=== PATIENT | male | born 1980 | race Caucasian/White ===

== ENCOUNTER → 2021-11-07 11:11 | Outpatient (CLI) | payer OTHER, SELFPAY | PROVIDERS: Visit Provider Nurse Practitioner | DX: Z20.822 Contact with and (suspected) exposure to COVID-19 (principal) | CPT/HCPCS: C9803; U0003; U0005 ==

== ENCOUNTER → 2023-10-20 10:53 | Outpatient (CLI) | payer OTHER, SELFPAY | LOC: SL 10:54 | PROVIDERS: PCP Pediatrics; Visit Provider Nurse Practitioner Family | DX: G47.33 Obstructive sleep apnea (adult) (pediatric); G47.36 Sleep related hypoventilation in conditions classified elsewhere; R06.83 Snoring; R53.83 Other fatigue; E66.9 Obesity, unspecified; Z68.31 Body mass index [BMI] 31.0-31.9, adult | CPT/HCPCS: G0399 ==

== ENCOUNTER → 2025-07-25 06:41 | Outpatient (CLI) | payer OTHER, SELFPAY | LOC: SL 06:42 | PROVIDERS: PCP Nurse Practitioner Family; Visit Provider Nurse Practitioner Family | DX: R06.81 Apnea, not elsewhere classified (principal); R06.83 Snoring; R53.83 Other fatigue; E66.9 Obesity, unspecified | CPT/HCPCS: G0399 ==

== ENCOUNTER 2025-08-07 18:20 | Emergency (ER) | payer OTHER, SELFPAY ==
[2025-08-07] VITALS (10 sets, daily range): BP systolic 129–184; BP diastolic 87–108; PULSE 73–107; RESP 9–18; TEMP 36.9; O2SAT 96–100; BMI 28.1
--- NOTE | 2025-08-07 18:39 | PC.NURSE ---
FSBS 94
--- NOTE | 2025-08-07 18:51 | ECG_ITS ---
APPROVED REPORT Exam: Resting ECG HR:97 bpm ECG Measurements Heart Rate 97 AXES WV 157 P 63 QRSd 100 QRS 84 QT 356 T 23 QTc 411 Conclusion Normal sinus rhythm Normal axis Normal intervals No STEMI Isolated T wave inversion in lead III Electronically signed by : Perico Karimi, 08/08/2025 02:03:05
--- NOTE | 2025-08-07 18:52 | CT_ITS ---
PROCEDURE INFORMATION: Exam: CTA Neck With Contrast Exam date and time: 08/07/2025 7:37 PM Age: 45 years old Clinical indication: Dizziness and giddiness; Additional info: Dizziness, vocal weakness TECHNIQUE: Imaging protocol: Computed tomographic angiography of the neck with contrast. Exam focused on the cervical segments of the vasculature. 3D rendering (Not supervised by radiologist): MIP and/or 3D reconstructed images were created by the technologist. Radiation optimization: All CT scans at this facility use at least one of these dose optimization techniques: automated exposure control; mA and/or kV adjustment per patient size (includes targeted exams where dose is matched to clinical indication); or iterative reconstruction. Contrast material: ISOVUE; Contrast volume: 80 ml; Contrast route: INTRAVENOUS (IV); COMPARISON: CT HEAD/BRAIN WO CON 08/07/2025 7:35 PM FINDINGS: Right common carotid artery: No stenosis. No dissection or occlusion. Right internal carotid artery: No stenosis of the extracranial segment. No dissection or occlusion. Right external carotid artery: No occlusion or stenosis of the origin. Left common carotid artery: No stenosis. No dissection or occlusion. Left internal carotid artery: No stenosis of the extracranial segment. No dissection or occlusion. Left external carotid artery: No occlusion or stenosis of the origin. Right vertebral artery: No stenosis. No dissection or occlusion. Left vertebral artery: Left vertebral artery is dominant. Soft tissues: Normal. No significant soft tissue swelling. Bones/joints: No acute fracture. IMPRESSION: No stenosis or dissection. REFERENCES: NASCET CRITERIA. The degree of stenosis in the cervical segment of the internal carotid artery is based on NASCET criteria. Normal is no stenosis. Mild is less than 50% stenosis. Moderate is 50-69% stenosis. Severe is 70% to 99% stenosis. Total occlusion is no detectable patent lumen.
--- NOTE | 2025-08-07 18:52 | CT_ITS ---
PROCEDURE INFORMATION: Exam: CTA Chest With Contrast Exam date and time: 08/07/2025 7:40 PM Age: 45 years old Clinical indication: Other: Weakness; Additional info: Weakness, dyspnea on exertion TECHNIQUE: Imaging protocol: Computed tomographic angiography of the chest with contrast. Exam focused on the arteries. 3D rendering (Not supervised by radiologist): MIP and/or 3D reconstructed images were created by the technologist. Radiation optimization: All CT scans at this facility use at least one of these dose optimization techniques: automated exposure control; mA and/or kV adjustment per patient size (includes targeted exams where dose is matched to clinical indication); or iterative reconstruction. Contrast material: ISOVUE; Contrast volume: 70 ml; Contrast route: INTRAVENOUS (IV); COMPARISON: CT ANGIO NECK 08/07/2025 7:37 PM FINDINGS: Pulmonary arteries: No pulmonary arterial intraluminal filling defects identified. Aorta: Unremarkable. No aortic aneurysm. No aortic dissection. Lungs: Subtle perihilar ground-glass interstitial opacities. No consolidation. No masses. Pleural spaces: Unremarkable. No pneumothorax. No pleural effusion. Heart: Unremarkable. No cardiomegaly. No pericardial effusion. Lymph nodes: Unremarkable. No enlarged lymph nodes. Bones/joints: Unremarkable. No acute fracture. Soft tissues: Unremarkable. IMPRESSION: 1. No central or segmental pulmonary arterial embolism identified. 2. Low-grade pulmonary edema/CHF and/or pulmonary air trapping.
--- NOTE | 2025-08-07 18:52 | CT_ITS ---
PROCEDURE INFORMATION: Exam: CT Head Without Contrast Exam date and time: 08/07/2025 7:35 PM Age: 45 years old Clinical indication: Other: Vertigo; Additional info: Vertigo, vocal weakness TECHNIQUE: Imaging protocol: Computed tomography of the head without contrast. Radiation optimization: All CT scans at this facility use at least one of these dose optimization techniques: automated exposure control; mA and/or kV adjustment per patient size (includes targeted exams where dose is matched to clinical indication); or iterative reconstruction. COMPARISON: CT HEAD/BRAIN WO CON 08/07/2025 7:35 PM FINDINGS: Brain: Normal. No hemorrhage. Unremarkable white matter. No mass effect. Cerebral ventricles: No ventriculomegaly. Paranasal sinuses: Visualized sinuses are unremarkable. No fluid levels. Mastoid air cells: Visualized mastoid air cells are well aerated. Bones: Unremarkable. No acute fracture. Soft tissues: Unremarkable. IMPRESSION: Stable noncontrast CT brain. No acute intracranial abnormality.
--- NOTE | 2025-08-07 18:52 | CT_ITS ---
PROCEDURE INFORMATION: Exam: CTA Head With Contrast, Arteriography Exam date and time: 08/07/2025 7:37 PM Age: 45 years old Clinical indication: Vertigo; Additional info: Vertigo, vocal weakness TECHNIQUE: Imaging protocol: Computed tomographic angiography of the head with contrast. Exam focused on the arteries. 3D rendering (Not supervised by radiologist): MIP and/or 3D reconstructed images were created by the technologist. Radiation optimization: All CT scans at this facility use at least one of these dose optimization techniques: automated exposure control; mA and/or kV adjustment per patient size (includes targeted exams where dose is matched to clinical indication); or iterative reconstruction. Contrast material: ISOVUE; Contrast volume: 80 ml; Contrast route: INTRAVENOUS (IV); COMPARISON: CT HEAD/BRAIN WO CON 08/07/2025 7:35 PM FINDINGS: ANTERIOR CIRCULATION: Right internal carotid artery: Intracranial segment is patent with no significant stenosis. No aneurysm. Right middle cerebral artery: No occlusion or significant stenosis. No aneurysm. Right anterior cerebral artery: No occlusion or significant stenosis. No aneurysm. Left internal carotid artery: Intracranial segment is patent with no significant stenosis. No aneurysm. Left middle cerebral artery: No occlusion or significant stenosis. No aneurysm. Left anterior cerebral artery: No occlusion or significant stenosis. No aneurysm. POSTERIOR CIRCULATION: Right vertebral artery: No occlusion or significant stenosis. No aneurysm. Left vertebral artery: Left vertebral artery is dominant. Basilar artery: No occlusion or significant stenosis. No aneurysm. Right posterior cerebral artery: No occlusion or significant stenosis. No aneurysm. Left posterior cerebral artery: No occlusion or significant stenosis. No aneurysm. IMPRESSION: No hemodynamically significant stenosis or large vessel occlusion.
[2025-08-07 19:05] LABS: Hematocrit 44.6 % (42.0-52.0); Hemoglobin 15.7 g/dL (14.1-18.0); Immature Granulocytes % 0.3 %; Mean Corpuscular HGB Conc 35.2 g/dL (31.8-35.4); Mean Corpuscular Hemoglobin 29.3 pg (27.0-31.2); Mean Corpuscular Volume 83.2 fl (80-94); Nucleated Red Blood Cells % 0 %; Platelet Count 242 K/mm3 (142-424); Red Blood Count 5.36 M/mm3 (4.60-6.20); Red Cell Distribution Width-SD 37.6 fL; White Blood Count 7.8 K/mm3 (4.8-10.8)
[2025-08-07 19:12] LABS: Albumin Level 4.8 g/dl (3.5-5.0); Chloride 101 mmol/L (98-107); Potassium 3.5 mmoL/L (3.5-5.1); Sodium 140 mmol/L (136-145)
[2025-08-07] MEDS: diazePAM 10MG/2ML SYRINGE 2.5 MG IV (19:13)
[2025-08-07 19:14] LABS: Blood Urea Nitrogen 13 mg/dl (9-20); Creatinine Clearance Estimated 108 mL/min (50-200); Creatinine,Serum 1.00 mg/dl (0.66-1.25); Estimated Glomerular Filt Rate 80 ml/min (>60); GFR (African American) 97 ML/MIN (>60)
[2025-08-07] MEDS: LACTATED RINGERS 1000ML 1,000 ML 999 ML IV (19:14)
[2025-08-07 19:15] LABS: Alanine Aminotransferase 32 U/L (12-78); Albumin/Globulin Ratio 1.5 (1.1-1.8); Alkaline Phosphatase 61 U/L (38-126); Anion Gap 16.5 mEq/L (5-15); Aspartate Amino Transferase 37 U/L (17-59); Bilirubin,Total 0.8 mg/dl (0.2-1.3); Calcium 9.3 mg/dl (8.4-10.2); Carbon Dioxide 26 mmol/L (22.0-30.0); Globulin 3.3 g/dL (1.3-3.2); Glucose 98 mg/dl (74-100); Total Protein,Serum 8.1 g/dl (6.3-8.2)
[2025-08-07 19:29] LABS: Troponin I < 0.01 ng/ml (0.00-0.034)
[2025-08-07 19:33] LABS: Free T4 (Free Thyroxine) 1.32 ng/dl (0.78-2.19)
[2025-08-07] MEDS: 0.9 % SODIUM CHLORIDE 50 ML VIAL 100 ML IV (19:37)
[2025-08-07] MEDS: IOPAMIDOL-370 (76%);100ML BOTTLE 150 ML IV (19:37)
[2025-08-07] MEDS: SODIUM CHLORIDE 0.9% 10ML SYR (RAD ONLY) 10 ML IV (19:38)
[2025-08-07 19:46] LABS: Thyroid Stimulating Hormone 1.77 uIU/mL (0.465-4.68)
--- NOTE | 2025-08-07 21:23 | PC.NURSE ---
Spoke with [facility] about transferring. awaiting a call back at this time
--- NOTE | 2025-08-07 21:43 | PC.NURSE ---
Accepted to [facility]. Will call back with a bed.
[2025-08-07] MEDS: ASPIRIN 325MG TABLET 325 MG PO (21:47)
--- NOTE | 2025-08-07 21:49 | [facility].EDGENADL ---
Discharge Plan Disposition Patient Disposition: Xfer Other Condition: Good Prescriptions Prescriptions: No Action acetaminophen [Tylenol] 325 mg capsule 325 mg PO QID PRN ibuprofen 200 mg tablet 200 mg PO Q6H PRN fluticasone propionate 50 mcg/actuation spray,suspension 2 spray intranasal DAILY Rx Instructions: administer into each nostril All Day Allergy (cetirizine) 10 mg capsule 10 mg PO DAILY PRN Referrals Follow up/Referrals: Provider,Referral, MD [Primary Care Provider, Medical] - See instructions Clinical Impressions Clinical Impression: Dizziness, Ataxia Print Language Print Language: Khmer Discharge ED Provider: Perico Karimi General Adult HPI General Chief complaint: Neuro Symptoms/Deficit Stated complaint: high blood pressure,dizzy Time Seen by Provider: 08/07/25 18:43 Mode of Arrival: Ambulatory Source of Information: Patient Description of Symptoms (Recalled from ER Triage Doc. by RN): ronnell presents for cheif complaints of high heart rate and high blood pressure. patient stated it was 159/112 and HR 110 prior to arrival. ronnell stated he started feeling off and werd this morning. complains of left arm weakness as well, no numbess and tingling. patient stated the room was spinning as well, and hes been having alot of headaches recently. History of Present Illness HPI narrative: See MDM for full HPI Related Data Home Medications ?Medication ?Instructions ?Recorded ?Confirmed acetaminophen 325 mg capsule 325 mg PO QID PRN 09/23/23 06/11/25 (Tylenol) ibuprofen 200 mg tablet 200 mg PO Q6H PRN 09/23/23 06/11/25 cetirizine 10 mg capsule (All Day 10 mg PO DAILY PRN 06/15/24 06/11/25 Allergy (cetirizine)) fluticasone propionate 50 2 spray intranasal DAILY 06/15/24 06/11/25 mcg/actuation nasal spray,suspension Allergies Allergy/AdvReac Type Severity Reaction Status Date / Time No Known Allergies Allergy Verified 06/14/24 17:18 [facility] Disclaimer: The information contained in this section may have been updated after the patient was seen, as this information can be updated by other users. Medical History (Updated 08/07/25 @ 21:55 by Perico Karimi DO) Intentional weight loss History of reverse total replacement of both shoulders Surgical History History of appendectomy Family History Other Coronary artery disease Hypertension RLS (restless legs syndrome) Social History Smoking Status: Never smoker alcohol intake: current alcohol intake frequency: a few times a week substance use type: denies use current occupational status: employed Travel in the last 8 weeks?: None household members: family housing: house marital status: Have you lived/traveled outside [place] in past 30 days?: No Contact w/someone who lives/traveled outside US past 30 days?: No Exposure to someone with infectious disease in past 14 days?: No Do you have a fever (greater than 100.4 F or 38 C)?: No Have you tested positive for COVID-19?: No Exposed to someone with COVID-19 in past 14 days?: No Do you have a sore throat?: No Do you have a cough?: No Do you have any weakness?: No Do you have any diarrhea?: No Are you experiencing any unusual bleeding?: No Do you have any muscle aches/pain?: No Do you have any abdominal pain?: No Are you experiencing loss of taste or smell?: No Other Medical History Have you received the Pneumonia Vaccine: No ROS Obtained: Yes Systems reviewed as appropriate & no additional complaints except as documented Physical Exam General General appearance: other (See MDM) Respiratory Respiratory exam: Present other (See MDM) Cardiovascular Cardiovascular exam: Present other (See MDM) Neurological Exam Neurological exam: Present other (See MDM) Medical Decision Making Medical Records Medical records reviewed: Yes I reviewed the patient's medical records. Screening: Per USPSTF and CDC recommendations, given the prevalence of disease in our region, it is our hospital?s policy to screen for HIV and viral Hepatitis for all patients aged 18 and over and those with ongoing risk factors. Prabhu Inquiry Pt receiving controlled substance: No Prabhu was queried for this patient: No Vital Signs: 08/07/25 18:27 08/07/25 18:43 08/07/25 19:00 Temperature 98.5 F Temperature Source Oral Pulse Rate 107 H 95 H Pulse Rate [Right Radial] 104 H Respiratory Rate 18 12 13 Blood Pressure 170/105 H 184/108 H Blood Pressure [Right Arm] 174/96 H Blood Pressure Mean [Right Arm] 122 Blood Pressure Source [Right Arm] Automatic Cuff Blood Pressure Position [Right Arm] Sitting 02 Sat by Pulse Oximetry 96 100 100 Oxygen Delivery Method Room Air Room Air 08/07/25 19:45 08/07/25 19:55 08/07/25 20:00 Temperature Temperature Source Pulse Rate 92 H 84 84 Pulse Rate [Right Radial] Respiratory Rate 9 L 11 L 16 Blood Pressure 133/91 H 139/87 Blood Pressure [Right Arm] Blood Pressure Mean [Right Arm] Blood Pressure Source [Right Arm] Blood Pressure Position [Right Arm] 02 Sat by Pulse Oximetry 98 100 Oxygen Delivery Method 08/07/25 20:30 08/07/25 21:30 Temperature Temperature Source Pulse Rate 94 H 94 H Pulse Rate [Right Radial] Respiratory Rate 10 L 10 L Blood Pressure 145/98 H 130/97 H Blood Pressure [Right Arm] Blood Pressure Mean [Right Arm] Blood Pressure Source [Right Arm] Blood Pressure Position [Right Arm] 02 Sat by Pulse Oximetry Oxygen Delivery Method Lab Data Lab Results 08/07/25 18:43: WBC 7.8, RBC 5.36, Hgb 15.7, Hct 44.6, MCV 83.2, MCH 29.3, MCHC 35.2, RDW 12.5, Plt Count 242, MPV 10.4, Neut % (Auto) 58.2, Lymph % (Auto) 30.6, Johnson % (Auto) 9.0, Eos % (Auto) 1.3, Baso % (Auto) 0.6, Neut # (Auto) 4.6, Lymph # (Auto) 2.4, Johnson # (Auto) 0.7, Eos # (Auto) 0.1, Baso # (Auto) 0.1, Sodium 140, Potassium 3.5, Chloride 101, Carbon Dioxide 26, Anion Gap 16.5 H, BUN 13, Creatinine 1.00, Estimated Creat Clear 108, Estimated GFR 80, Est GFR ( Amer) 97, Glucose 98, Calcium 9.3, Total Bilirubin 0.8, AST 37, ALT 32, Alkaline Phosphatase 61, Troponin I < 0.01, Total Protein 8.1, Albumin 4.8, Globulin 3.3 H, Albumin/Globulin Ratio 1.5, TSH 1.77, Free T4 1.32 08/07/25 18:43 08/07/25 18:43 Orders (Tests/Meds): ED MEDICATIONS Generic Name Dose Route Start Last Admin Trade Name Freq PRN Reason Stop Dose Admin Sodium Chloride 10 ml 08/07/25 19:35 08/07/25 19:38 Sodium Chloride 0.9% 10ml Syr (Rad Only) IV 09/06/25 19:34 10 ml NEEDED PRN Administration Maintain IV Site Discontinued Medications Generic Name Dose Route Start Last Admin Trade Name Freq PRN Reason Stop Dose Admin Aspirin 325 mg 08/07/25 21:41 08/07/25 21:47 Aspirin 325mg Tablet PO 08/07/25 21:42 325 mg ONCE ONE Administration Diazepam 2.5 mg 08/07/25 18:56 08/07/25 19:13 Diazepam 10mg/2ml Syringe IV 08/07/25 18:57 2.5 mg ONCE ONE Administration Lactated Ringer's 1,000 mls @ 999 mls/hr 08/07/25 18:59 08/07/25 21:22 Lactated Ringer's 1000 Ml Bag IV 08/07/25 19:59 Infused .Q1H1M ONE Infusion Iopamidol 150 ml 08/07/25 19:35 08/07/25 19:37 Iopamidol-370 (76%);100ml Bottle IV 08/07/25 19:36 150 ml ONCE ONE Administration Sodium Chloride 100 ml 08/07/25 19:35 08/07/25 19:37 0.9 % Sodium Chloride 50 Ml Vial IV 08/07/25 19:36 100 ml ONCE ONE Administration ORDERS Category Date Time Status CT angio chest PE protocol Stat Cat Scan 08/07/25 18:[address] angio head Stat Cat Scan 08/07/25 18:[address] angio neck Stat Cat Scan 08/07/25 18:[address] head/brain wo con Stat Cat Scan 08/07/25 18:52 Completed CBC w/Auto Diff [Complete Blood Count Auto Diff] Stat Lab 08/07/25 18:43 Completed CMP [Comprehensive Metabolic Panel] Stat Lab 08/07/25 18:43 Completed Free T4 (Free Thyroxine) Stat Lab 08/07/25 18:43 Completed TSH [Thyroid Stimulating Hormone] Stat Lab 08/07/25 18:43 Completed Troponin I Q3H Lab 08/07/25 22:00 Ordered Troponin I Q3H Lab 08/08/25 01:00 Ordered Troponin I Stat Lab 08/07/25 18:43 Completed Medical Decision Narrative: This is a 45-year-old male patient, with no past medical history noted medications, who is presenting to the emergency department today for evaluation of dizziness. The patient states that last night his dizziness began and he describes this as a sensation of floating on a boat and being unsteady on his feet. He also states that when he gets up to walk around he has additional vertigo with a sensation of spinning in the room. He states that since the onset of his symptoms he has a subjective sense of weakness in the left lower extremity. There was 1. In the past where he was admitted to an outside hospital on a stroke unit for foot drop that spontaneously resolved. He is not on any anticoagulant or antiplatelet therapies and does not take a daily baby aspirin. On arrival to the hospital the patient was unable to ambulate into the department and had to be wheeled in in a wheelchair. On my evaluation he is appropriately alert and oriented with a GCS of 15. Heart lungs clear to auscultation bilaterally. He has no abdominal pain or tenderness. He has 5 out of 5 strength in his bilateral upper and lower extremities, normal finger-nose testing, normal [id number] testing. Cranial nerves II through XII are intact. He has no nystagmus on exam so he is not a candidate for the hints examination. Given these findings his differential diagnosis includes large vascular occlusion, ischemic stroke, central vertigo, posterior circulation stroke, electrolyte derangement, intracranial hemorrhage, BPPV, lab otitis, vestibular neuritis, among others Workup was initiated with hematologic labs as as well as CTAs of the head and neck, CT head without contrast, and a CT PE study. Labs were personally interpreted by me and demonstrate no leukocytosis or actionable anemia. No significant electrolyte arrangements or acute kidney injury. Troponin is less than 0.01. CT scans of the head were personally interpreted by me and demonstrate no large intracranial hemorrhages. Official radiology read is in agreement and states that there is no acute abnormality. Additionally, they note no abnormality on CTA of the head and neck. CT PE study shows possible edema in the airway with no overt pulmonary embolism. We have treated the patient here in the emergency department 2.5 mg of Valium. Patient states that this has helped his sensation of dizziness and vertigo but his symptoms are still persisting. I have attempted to ambulate the patient and he is able to get out of the bed but he is unable to ambulate without holding onto the wall. His gait is somewhat wide-based and seems to be consistent with ataxia. he states that his symptoms of dizziness are still present at rest. Given this I do have concerns that he could be experiencing a posterior circulation stroke. Therefore I had an interactive discussion with the stroke navigator at [facility] in [place] who recommended that we treat the patient with 3 and a 25 mg of aspirin and transfer him for higher level of care for further stroke workup. Dr. Adams will be the accepting physician. Patient was transferred in stable condition. Critical Care Critical Care Time Critical Care Time: No
[2025-08-08] VITALS (11 sets, daily range): BP systolic 100–137; BP diastolic 65–94; PULSE 57–81; RESP 9–20; TEMP 36.7; O2SAT 94–99
--- NOTE | 2025-08-08 03:23 | PC.NURSE ---
Called [facility] to give them a update on transfer.
== END 2025-08-08 05:37 | disposition other institution (70) ==
PROVIDERS: Emergency Provider Student in an Organized Health Care Education/Training Program
DX: R27.0 Ataxia, unspecified (principal); R03.0 Elevated blood-pressure reading, without diagnosis of hypertension
CPT/HCPCS: 70450; 70496; 70498; 71275; 80053; 84439; 84443; 84484; 85025; 93005; 96361; 96374; 99285; J3360; J7120; Q9967

== ENCOUNTER 2025-08-10 09:41 | Emergency (ER) | payer OTHER, SELFPAY ==
--- OUTSIDE RECORDS SUMMARY | 2025-08-08 06:36 | XMS_ITS | Encounter Summary ---
Author Organization [facility] Address [address] [place] [id number] Care Team Providers Care Sanitary Aide Name Role Phone Unavailable Primary Care Provider Unavailabl e Reason for Referral * Physical Therapy (Routine) - Pending Review Specialty Diagnoses / Procedures Referred By Sadia schultz Referred To Contact Physical Therapy Diagnoses Benign paroxysmal positional vertigo due to bilateral vestibular disorder Procedures LA OFFICE/OUTPATIENT NEW MODERATE MDM 45 MINUTES Jackie Ndiaye MD [address] [place], [place] [address] [place] [address] Phone: tel: fax: Referral ID Status Reason Start Date Expiration Date Visits Requested Visits Authorized [id number] Pending Review Specialty Services Required 11/08/2026 1 1 Reason for Visit * Auth/Cert Specialty Diagnoses / Procedures Referred By Sadia schultz Referred To Contact Diagnoses Cerebrovascular Accident ATAXIA Referral ID Status Reason Start Date Expiration Date Visits Re quested Visits Authorized [id number] 1 1 Encounter Details Date Type Department Care Team (Late st Contact Info) Description 08/08/2025 6:36 AM EDT - 08/09/2025 3:22 PM EDT Hospital Encounter [address] [place] [id number] Chip Adams MD [address] [facility] 4Th [place] [address] Nicki Kelly DO [address] [place] [id number] Jackie Ndiaye MD [address] [facility] [address] [place] [address] Benign paroxysmal positional vertigo due to bilateral vestibular disorder (Primary Dx) Discharge Disposition: Home or Self Care Social History Tobacco Use Types Packs/Day Years Used Date Smoking Tobacco: Never Smokeless Tobacco: Never Tobacco Cessation:Counseling Given: No Alcohol Use Standard Drinks/Week Comments Yes 4 (1 standard drink = 0.6 oz pur e alcohol) AUDIT-C Answer Date Recorded Q1: How often do you have a drink containing alc ohol? 2-3 times a week 08/08/2025 Q2: How many drinks containi ng alcohol do you have on a typical day when you are drinking? 1 or 2 08/08/2025 Q3: How often do you have si x or more drinks on one occasion? Never 08/08/2025 Overall Financial Resource Strain (CARDIA) Answe r Date Recorded How hard is it for you to pa y for the very basics like food, housing, medical care, and heating? Not very hard 08/08/2025 [facility] Occupat ional [facility] - Occupational Stress Questionnaire Answer Date Recorded Do you feel stress - tense, restless, nervous, or anxious, or unable to sleep at night because your mind is troubled all the time - these days? Not at all 08/08/2025 Exercise Vital Sign Answer Date Recorde d On average, how many days pe r week do you engage in moderate to strenuous exercise (like a brisk walk)? 0 days 08/08/2025 On average, how many minutes do you engage in exercise at this level? 0 min 08/08/2025 Hunger Vital Sign Answer Date Recorded Within the past 12 months, y ou worried that your food would run out before you got the money to buy more. Never true 08/08/20 25 Within the past 12 months, t he food you bought just didn't last and you didn't have money to get more. Never true 08/08/2025 PRAPARE - Transportation Answer Date Re corded In the past 12 months, has l ack of transportation kept you from medical appointments or from getting medications? No 07/25 In the past 12 months, has l ack of transportation kept you from meetings, work, or from getting things needed for daily living? No 08/08/2025 [facility] Utilities Answer Date Recorded In the past 12 months has th e electric, gas, oil, or water company threatened to shut off services in your home? No 08/08/2025 Abuse Screen Answer Date Recorded Feels Unsafe at Home or Work/School no 08/08/2025 Feels Threatened by Someone no 07/25 Does Anyone Try to Keep You From Having Contact with Others or Doing Things Outside Your Home? no 08/08/2025 Physical Signs of Abuse Present no 08/08/2025 Housing Stability Answer Date Recorded Current Living Arrangements home 07/25 Potentially Unsafe Housing Conditions none 08/08/2025 Family and Community Support Answer Haresh e Recorded If for any reason you need h elp with day-to-day activities such as bathing, preparing meals, shopping, managing finances, etc., do you get the help you need? I get all the help I need 08/08/2025 How often do you feel lonely or isolated from those around you? Never 08/08/2025 Employment Answer Date Recorded Do you want help finding or keeping work or a job? I do not need or want help 08/08/2025 Disabilities Answer Date Recorded Difficulty Concentrating, Remembering or Making Decisions no 08/08/2025 Difficulty Managing Errands Independently no 08/08/2025 Education Answer Date Recorded Do you want help with school or training? For example, starting or completing job training or getting a high school diploma, GED or equivalent No 08/08/2025 Preferred Language [place] 08/08/2025 PHQ-2 Answer Date Recorded Patient Health Questionnaire-2 Score 0 08/08/2025 Sex and Gender Information Value Date Recorded Sex Assigned at Not on file Legal Sex Male 10:01 PM EDT Gender Identity Not on file Sexual Orientation Not on file documented as of this encounter Last Filed Vital Signs Vital Sign Reading Time Taken Comments Blood Pressure 145/99 08/09/2025 1:19 PM EDT Pulse 69 08/09/2025 10:11 AM EDT Temperature 36.7 C (98.1 F) 08/09/2025 10:11 AM EDT Respiratory Rate 18 08/09/2025 10:11 AM EDT Oxygen Saturation 96% 08/09/2025 10:11 AM EDT Inhaled Oxygen Concentration - - Weight 82.1 kg (181 lb) 08/09/2025 1:19 PM EDT Height - - Body Mass Index - - documented in this encounter Functional Status * Question Answer Date of Assessment Author 1. Wish to be (Past 1 Month) No 08/08/2025 8:34 AM EDT Florentino Martinez RN 2. Non-Specific Active Suicidal Thoughts (Past 1 Month) No 08/08/2025 8:34 AM EDT Florentino Martinez RN * Calculated C-SSRS Risk Score (Lifetime/Recent) Answer Date of Assessment Author No Risk Indicated 08/08/2025 8:34 AM EDT Mercedez Roland RN * [place] Suicide Severity Rating Scale (Screener/Recent Self-Report) Question Answer Date of Assessment Author 6. Suicidal Behavior (Lifetime) No 08/08/2025 8:34 AM EDT Florentino Martinez RN * Question Answer Date of Assessment Author Little interest or pleasure in doing things Not at all 08/08/2025 8:04 AM EDT [place] RN Feeling down, depressed, or hopeless Not at all 07/25 8:04 AM EDT [place] RN Patient Health Questionnaire-2 Score 0 07/25 8:04 AM EDT [place] RN documented as of this encounter Discharge Summaries * Susan Weiss RN - 08/09/2025 2:53 PM EDT Images from the original note were not included. Darci Campos (45 y.o. Male) Pt will call to arrange his first visit. Date of 1980 Social Security Number [id number] Address [address] [place] [address] Evangelical None Marital Status Admission Date 08/08/2025 Admission Type Urgent Admitting Provider Attending Provider Jackie Ndiaye MD Department, Room/Bed [facility] 3H, S383/1 Discharge Date Discharge Disposition Home or Self Care Discharge Destination Attending Provider: Jackie Ndiaye MD Allergies: No Known Allergies Isolation: None Infection: None Code Status: CPR Ht: -- Wt: 82.1 kg (181 lb) Admission Cmt: None Principal Problem: BPPV (benign paroxysmal positional vertigo) [H81.10] Active Insurance as of 08/08/2025 Primary Coverage Payor Plan Insurance Group Employer/Plan Group 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.) Home Phone Work Phone Mobile Phone Natalie Campos (Spouse) [phone] -- [phone] [facility] [address] [id number] Date: Aug 09, 2025 Ambulatory Referral to Physical Therapy for Evaluation & Treatment Patient: Darci Campos [address] [place] [id number] : 1980 SSN: [id number] Sex: M 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 ID Primary: [facility] [id number] Referring Provider Information: JACKIE NDIAYE Referral Information: # Visits: 1 Referral Type: Physical Therapy [AE1] Urgency: Routine Referral Reason: Specialty Services Required Start Date: Aug 09, 2025 End Date: To be determined by Insurer Diagnosis: Benign paroxysmal positional vertigo due to bilateral vestibular disorder (H81.13) Refer to Dept: Refer to Provider: Refer to Provider Phone: Refer to Facility: Specialty needed: Evaluate and treat Specialty needed: Vestibular Follow-up needed: Yes This document serves as a request of services and does not constitute Insurance authorization or approval of services. To determine eligibility, please contact the members Insurance carrier to verifyand review coverage. If you have medical questions regarding this request for services. Please contact [address] at [phone] during normal business hours. Verbal Order Mode: Verbal with readback Authorizing Provider: Jackie Ndiaye MD Authorizing Provider's Order Entered By: Susan Weiss RN 08/09/2025 2:50 PM Electronically signed by: Insurance Information [facility] Phone: -- Subscriber: Darci Campos Subscriber#: [id number] Group#: [id number] Precert#: -- Authorization#: -- Effective Date: -- History & Physical Jackie Ndiaye MD at 08/08/25 07 [facility] Medicine Services HISTORY AND PHYSICAL Patient Name: Darci Campos : 1980 Primary Care Physician: No primary care provider on file. Date of admission: 08/08/2025 Subjective Subjective Chief Complaint: Dizziness, difficulty walking HPI: Darci Campos is a 45 y.o. male with no known past medical history, who presented to [facility] for acute onset dizziness that began on 08/06 that has been persistent. He feels like he is on a boat, but when standing the room spins. Due to severity of symptoms, patient was extremelyataxic/had difficulty walking. Had 3 headaches in the past week and some neck discomfort. Denied fever, visual changes, chest pain, GI or symptoms. Patient reports significant chronic history of intermittent vertigo that usually lasts only a few seconds to less than a minute. At OSH, CTA head/neck read as wnl. Transferred here for further evaluation. Review of Systems As above Personal History Past Medical History: Diagnosis Date Sleep apnea Past Surgical History: Procedure Laterality Date APPENDECTOMY SHOULDER ARTHROSCOPY Family History: family history includes Heart disease in his father; Hypertension in his father; Leukemia in his mother. Social History: reports that he has never smoked. He has never used smokeless tobacco. He reports current alcohol use of about 4.0 standard drinks of alcohol per week. He reports that he does not usedrugs. Social History Social History Narrative Not on file Medications: cetirizine Allergies No Known Allergies Objective Objective Vital Signs: Temp: [97.9 ??F (36.6 ??C)] 97.9 ??F (36.6 ??C) Heart Rate: [80] 80 Resp: [18] 18 BP: (133)/(96) 133/96 Physical Exam Constitutional: No acute distress, awake, alert HENT: NCAT, mucous membranes moist Respiratory: Clear to auscultation bilaterally, respiratory effort normal Cardiovascular: RRR Gastrointestinal: Positive bowel sounds, soft, nontender, nondistended Musculoskeletal: No bilateral ankle edema Psychiatric: Appropriate affect, cooperative Neurologic: Alert, oriented, symmetric facies, ORO, PERRL, ORO, strength equal, speech clear Skin: No rashes Result Review: I have personally reviewed the results from the time of this admission to 08/08/2025 12:30 EDT and agree with these findings: [] Laboratory list / accordion [] Microbiology [] Radiology [] EKG/Telemetry [] Cardiology/Vascular [] Pathology [] Old records [] Other: Most notable findings include: LAB RESULTS: Lab 08/08/25 0736 WBC 5.70 HEMOGLOBIN 15.1 HEMATOCRIT 45.6 PLATELETS 220 NEUTROS ABS 3.26 IMMATURE GRANS (ABS) 0.01 LYMPHS ABS 1.72 MONOS ABS 0.56 EOS ABS 0.11 MCV 87.0 Lab 08/08/25 0736 SODIUM 141 POTASSIUM 4.4 CHLORIDE 104 CO2 27.2 ANION GAP 9.8 BUN 10.4 CREATININE 0.98 EGFR 95.7 GLUCOSE 93 CALCIUM 9.3 HEMOGLOBIN A1C 5.53 TSH 1.880 Lab 08/08/25 0736 TOTAL PROTEIN 6.9 ALBUMIN 4.3 GLOBULIN 2.6 ALT (SGPT) 26 AST (SGOT) 24 BILIRUBIN 0.8 ALK PHOS 47 Lab 08/08/25 0736 CHOLESTEROL 184 LDL CHOL 126* HDL CHOL 42 TRIGLYCERIDES 87 Brief Urine Lab Results None Microbiology Results (last 10 days) No results found for the last [address] Outside Head Result Date: 08/08/2025 This procedure was auto-finalized with no dictation required. CT Outside Head Result Date: 08/08/2025 This procedure was auto-finalized with no dictation required. CT Outside Neck Result Date: 08/08/2025 This procedure was auto-finalized with no dictation required. CT Outside Chest Result Date: 08/08/2025 This procedure was auto-finalized with no dictation required. Assessment & Plan Assessment & Plan Dizziness 45-year-old male with no significant past medical history, who presented to [facility] on 08/07 with acute onset dizziness that began on 08/06 that has persisted. CTA head/neck and CT head were read as unremarkable. He was transferred here for stroke neurology evaluation. Persistent dizziness Headache -CVA versus BPPV versus complex migraine -Stroke neurology consulted -MRI brain pending -TTE pending -Continue aspirin, statin -Migraine cocktail -PT/OT/speech -Neurochecks per protocol -If MRI negative, then PT for Jordan maneuver EYAL-doesn't use his CPAP DVT prophylaxis: SCDs for now while awaiting MRI brain CODE STATUS: FULL CODE Code Status (Patient has no pulse and is not breathing): CPR (Attempt to Resuscitate) Medical Interventions (Patient has pulse or is breathing): Full Support Level Of Support Discussed With: Patient Expected Discharge Expected discharge date/ time has not been documented. This note has been completed as part of a split-shared workflow. Signature: Electronically signed by Jackie Ndiaye MD, 08/08/25, 7:28 AM EDT 1233 @[email or web address]@ Discharge Summary Jackie Ndiaye MD at 08/09/25 0911 [facility] Medicine Services DISCHARGE SUMMARY Patient Name: Darci Campos : 1980 Date of Admission: 08/08/2025 6:36 AM Date of Discharge: 08/09/2025 Primary Care Physician: No primary care provider on file. Consults Date and Time Order Name Status Description 08/08/2025 6:42 AM Inpatient Neurology Consult Stroke Completed Hospital Course Presenting Problem: Active Hospital Problems Diagnosis POA BPPV (benign paroxysmal positional vertigo) [H81.10] Yes Hyperlipidemia [E78.5] Yes Resolved Hospital Problems No resolved problems to display. Hospital Course: Darci Campos is a 45 y.o. male with no significant past medical history, who presented to [facility] on 08/07 with acute onset dizziness that began on 08/06 that has persisted. CTA head/neck and CT head were read as unremarkable. He was transferred here for stroke neurology evaluation. MRI brain negative for CVA. ECHO prelim okay and stroke neuro ACTUARIAL TECHNICIAN is okay w DC home w prelim only read. BPPV Headache, resolved -BPPV versus complex migraine; no evidence of nystagmus on examination -Stroke neurology consulted -Status post migraine cocktail -PT/OT/speech evaluated and rec home -PT for Jordan maneuver -PRN meclizine on DC, discussed w pt -Encouraged pt to follow-up w ENT as scheduled on Wednesday -Symptoms dramatically improved prior to DC and pt able to walk in the hallway w/o difficulty -Lower suspicion for vestibular neuritis, but would remain supportive care Chronic bilateral tinnitus -Pt reported significant long-standing hx of tinnitus; discussed w pt and rec follow-up w PCP for hearing testing and if PCP doesn't do full hearing testing, then to obtain audiology referral HLD--Continue statin on DC per neuro given LDL 126 and ascvd risk of 3.4-5.9%; discussed risks of muscle aches/side effects w pt EYAL-doesn't use his CPAP Discharge Follow Up Recommendations for outpatient labs/diagnostics: Follow-up with PCP in 5-7 days regarding this hospitalization Follow-up with ENT as scheduled on Wednesday Day of Discharge HPI: Patient reports feeling significantly better. No chest pain or shortness of breath. Dizziness has essentially resolved. No headache. Able to walk now. Discussed with him follow-up recommendations. Pthas his sister on facetime in the room and pt okay w her being updated. Review of Systems As above Vital Signs: Temp: [97.7 ??F (36.5 ??C)-98.1 ??F (36.7 ??C)] 98.1 ??F (36.7 ??C) Heart Rate: [57-82] 69 Resp: [18] 18 BP: (114-145)/(71-99) 145/99 Physical Exam: Constitutional: No acute distress, awake, alert HENT: NCAT, mucous membranes moist Respiratory: Clear to auscultation bilaterally, respiratory effort normal Cardiovascular: RRR Gastrointestinal: Positive bowel sounds, soft, nontender, nondistended Musculoskeletal: No bilateral ankle edema Psychiatric: Appropriate affect, cooperative Neurologic: Alert, oriented, symmetric facies, ORO, PERRL, ORO, strength equal, speech clear Skin: No rashes on exposed skin Pertinent and/or Most Recent Results LAB RESULTS: Lab 08/08/25 0736 WBC 5.70 HEMOGLOBIN 15.1 HEMATOCRIT 45.6 PLATELETS 220 NEUTROS ABS 3.26 IMMATURE GRANS (ABS) 0.01 LYMPHS ABS 1.72 MONOS ABS 0.56 EOS ABS 0.11 MCV 87.0 Lab 08/08/25 0736 SODIUM 141 POTASSIUM 4.4 CHLORIDE 104 CO2 27.2 ANION GAP 9.8 BUN 10.4 CREATININE 0.98 EGFR 95.7 GLUCOSE 93 CALCIUM 9.3 HEMOGLOBIN A1C 5.53 TSH 1.880 Lab 08/08/25 0736 TOTAL PROTEIN 6.9 ALBUMIN 4.3 GLOBULIN 2.6 ALT (SGPT) 26 AST (SGOT) 24 BILIRUBIN 0.8 ALK PHOS 47 Lab 08/08/25 0736 CHOLESTEROL 184 LDL CHOL 126* HDL CHOL 42 TRIGLYCERIDES 87 Brief Urine Lab Results None Microbiology Results (last 10 days) No results found for the last 240 hours. MRI Brain Without Contrast Result Date: 08/08/2025 MRI BRAIN WO CONTRAST Date of Exam: 08/08/2025 4:37 PM EDT Indication: Stroke, follow up Dizziness,ataxic gait. Comparison: Head CT 08/07/2025 Technique: Routine multiplanar/multisequence sequence images of the brain were obtained without contrast administration. Findings: No acute midline shift, extra axial fluid collection, hydrocephalus, or infarct. No subacute to old hemorrhage. Brain volumeappears age appropriate. Appropriate flow voids at the skull base and in the major venous sinuses. Mild mucosal changes in the paranasal sinuses. Mastoid air cells are essentially clear. Visualized globes and orbits appear unremarkable by MRI. No acute or aggressive appearing osseous or extracranial soft tissue process. Impression: No acute intracranial finding. Electronically Signed: Lorenzo Saravia MD 08/08/2025 5:06 PM EDT Workstation ID: [id number] CT Outside Head Result Date: 08/08/2025 This procedure was auto-finalized with no dictation required. CT Outside Head Result Date: 08/08/2025 This procedure was auto-finalized with no dictation required. CT Outside Neck Result Date: 08/08/2025 This procedure was auto-finalized with no dictation required. CT Outside Chest Result Date: 08/08/2025 This procedure was auto-finalized with no dictation required. I have personally reviewed the therapy plans: [] PT/OT/ ST Therapy Plans Plan for Follow-up of Pending Labs/Results: Discharge Details Discharge Medications New Medications Instructions Start Date atorvastatin 20 MG tablet Commonly known as: LIPITOR 20 mg, Oral, Nightly meclizine 25 MG tablet Commonly known as: ANTIVERT 25 mg, Oral, 3 Times Daily PRN PHARMACY MEDS TO BED CONSULT Not Applicable, Daily Continue These Medications Instructions Start Date cetirizine 10 MG tablet Commonly known as: zyrTEC 10 mg, Oral, Daily Allergies No Known Allergies Discharge Disposition: Home or Self Care Diet: Hospital: Diet Order Procedures Diet: Regular/House, Cardiac; Healthy Heart (2-3 Na+); Fluid Consistency: Thin (IDDSI 0) Standing Status: Standing Number of Occurrences: 1 Diets:: Regular/House Diets:: Cardiac Cardiac Diet:: Healthy Heart (2-3 Na+) Fluid Consistency:: Thin (IDDSI 0) Diet Instructions Diet: Cardiac Diets; Healthy Heart (2-3 Na+); Regular (IDDSI 7); Thin (IDDSI 0) Discharge Diet: Cardiac Diets Cardiac Diet: Healthy Heart (2-3 Na+) Texture: Regular (IDDSI 7) Fluid Consistency: Thin (IDDSI 0) Activity: Restrictions or Other Recommendations: CODE STATUS: Code Status and Medical Interventions: CPR (Attempt to Resuscitate); Full Support Ordered at: 08/08/25 0936 Code Status (Patient has no pulse and is not breathing): CPR (Attempt to Resuscitate) Medical Interventions (Patient has pulse or is breathing): Full Support Level Of Support Discussed With: Patient No future appointments. Additional Instructions for the Follow-ups that You Need to Schedule Call MD With Problems / Concerns As directed Please seek medical attention for any of the following: Difficulty breathing, chest pain, passing out, strokelike symptoms, and/or any other concerning symptoms Order Comments: Please seek medical attention for any of the following: Difficulty breathing, chestpain, passing out, strokelike symptoms, and/or any other concerning symptoms Discharge Follow-up with PCP As directed Currently Documented PCP: No primary care provider on file. PCP Phone Number: None Follow Up Details: follow-up with primary care doctor in 5 to 7 days regarding this hospitalization Jackie Ndiaye MD 08/09/25 Time Spent on Discharge: I spent 34 minutes on this discharge activity which included: [id number] with the patient, reviewing the data in the system, coordination of the care with the nursing staff as well as consultants, documentation, and entering orders. [id number] * Jackie Ndiaye MD - 08/09/2025 9:11 AM EDT Images from the original note were not included. [facility] Medicine Services DISCHARGE SUMMARY Patient Name: Darci Campos : 1980 Date of Admission: 08/08/2025 6:36 AM Date of Discharge: 08/09/2025 Primary Care Physician: No primary care provider on file. Consults Date and Time Order Name Status Description 08/08/2025 6:42 AM Inpatient Neurology Consult Stroke Completed Hospital Course Presenting Problem: Active Hospital Problems Diagnosis POA BPPV (benign paroxysmal positional vertigo) [H81.10] Yes Hyperlipidemia [E78.5] Yes Resolved Hospital Problems No resolved problems to display. Hospital Course: Darci Campos is a 45 y.o. male with no significant past medical history, who presented to [facility] on 08/07 with acute onset dizziness that began on 08/06 that has persisted. CTA head/neck and CT head were read as unremarkable. He was transferred here for stroke neurology evaluation. MRI brain negative for CVA. ECHO prelim okay and stroke neuro ACTUARIAL TECHNICIAN is okay w DC home w prelim only read. BPPV Headache, resolved -BPPV versus complex migraine; no evidence of nystagmus on examination -Stroke neurology consulted -Status post migraine cocktail -PT/OT/speech evaluated and rec home -PT for Jordan maneuver -PRN meclizine on DC, discussed w pt -Encouraged pt to follow-up w ENT as scheduled on Wednesday -Symptoms dramatically improved prior to DC and pt able to walk in the hallway w/o difficulty -Lower suspicion for vestibular neuritis, but would remain supportive care Chronic bilateral tinnitus -Pt reported significant long-standing hx of tinnitus; discussed w pt and rec follow-up w PCP for hearing testing and if PCP doesn't do full hearing testing, then to obtain audiology referral HLD--Continue statin on DC per neuro given LDL 126 and ascvd risk of 3.4-5.9%; discussed risks of muscle aches/side effects w pt EYAL-doesn't use his CPAP Discharge Follow Up Recommendations for outpatient labs/diagnostics: Follow-up with PCP in 5-7 days regarding this hospitalization Follow-up with ENT as scheduled on Wednesday Day of Discharge HPI: Patient reports feeling significantly better. No chest pain or shortness of breath. Dizziness has essentially resolved. No headache. Able to walk now. Discussed with him follow-up recommendations. Pthas his sister on facetime in the room and pt okay w her being updated. Review of Systems As above Vital Signs: Temp: [97.7 ??F (36.5 ??C)-98.1 ??F (36.7 ??C)] 98.1 ??F (36.7 ??C) Heart Rate: [57-82] 69 Resp: [18] 18 BP: (114-145)/(71-99) 145/99 Physical Exam: Constitutional: No acute distress, awake, alert HENT: NCAT, mucous membranes moist Respiratory: Clear to auscultation bilaterally, respiratory effort normal Cardiovascular: RRR Gastrointestinal: Positive bowel sounds, soft, nontender, nondistended Musculoskeletal: No bilateral ankle edema Psychiatric: Appropriate affect, cooperative Neurologic: Alert, oriented, symmetric facies, ORO, PERRL, ORO, strength equal, speech clear Skin: No rashes on exposed skin Pertinent and/or Most Recent Results LAB RESULTS: Lab 08/08/25 0736 WBC 5.70 HEMOGLOBIN 15.1 HEMATOCRIT 45.6 PLATELETS 220 NEUTROS ABS 3.26 IMMATURE GRANS (ABS) 0.01 LYMPHS ABS 1.72 MONOS ABS 0.56 EOS ABS 0.11 MCV 87.0 Lab 08/08/25 0736 SODIUM 141 POTASSIUM 4.4 CHLORIDE 104 CO2 27.2 ANION GAP 9.8 BUN 10.4 CREATININE 0.98 EGFR 95.7 GLUCOSE 93 CALCIUM 9.3 HEMOGLOBIN A1C 5.53 TSH 1.880 Lab 08/08/25 0736 TOTAL PROTEIN 6.9 ALBUMIN 4.3 GLOBULIN 2.6 ALT (SGPT) 26 AST (SGOT) 24 BILIRUBIN 0.8 ALK PHOS 47 Lab 08/08/25 0736 CHOLESTEROL 184 LDL CHOL 126* HDL CHOL 42 TRIGLYCERIDES 87 Brief Urine Lab Results None Microbiology Results (last 10 days) No results found for the last 240 hours. MRI Brain Without Contrast Result Date: 08/08/2025 MRI BRAIN WO CONTRAST Date of Exam: 08/08/2025 4:37 PM EDT Indication: Stroke, follow up Dizziness,ataxic gait. Comparison: Head CT 08/07/2025 Technique: Routine multiplanar/multisequence sequence images of the brain were obtained without contrast administration. Findings: No acute midline shift, extra axial fluid collection, hydrocephalus, or infarct. No subacute to old hemorrhage. Brain volumeappears age appropriate. Appropriate flow voids at the skull base and in the major venous sinuses. Mild mucosal changes in the paranasal sinuses. Mastoid air cells are essentially clear. Visualized globes and orbits appear unremarkable by MRI. No acute or aggressive appearing osseous or extracranial soft tissue process. Impression: No acute intracranial finding. Electronically Signed: Lorenzo Saravia MD 08/08/2025 5:06 PM EDT Workstation ID: [id number] CT Outside Head Result Date: 08/08/2025 This procedure was auto-finalized with no dictation required. CT Outside Head Result Date: 08/08/2025 This procedure was auto-finalized with no dictation required. CT Outside Neck Result Date: 08/08/2025 This procedure was auto-finalized with no dictation required. CT Outside Chest Result Date: 08/08/2025 This procedure was auto-finalized with no dictation required. I have personally reviewed the therapy plans: [] PT/OT/ ST Therapy Plans Plan for Follow-up of Pending Labs/Results: Discharge Details Discharge Medications New Medications Instructions Start Date atorvastatin 20 MG tablet Commonly known as: LIPITOR 20 mg, Oral, Nightly meclizine 25 MG tablet Commonly known as: ANTIVERT 25 mg, Oral, 3 Times Daily PRN PHARMACY MEDS TO BED CONSULT Not Applicable, Daily Continue These Medications Instructions Start Date cetirizine 10 MG tablet Commonly known as: zyrTEC 10 mg, Oral, Daily Allergies[1] Discharge Disposition: Home or Self Care Diet: Hospital: Diet Order Procedures Diet: Regular/House, Cardiac; Healthy Heart (2-3 Na+); Fluid Consistency: Thin (IDDSI 0) Standing Status: Standing Number of Occurrences: 1 Diets:: Regular/House Diets:: Cardiac Cardiac Diet:: Healthy Heart (2-3 Na+) Fluid Consistency:: Thin (IDDSI 0) Diet Instructions Diet: Cardiac Diets; Healthy Heart (2-3 Na+); Regular (IDDSI 7); Thin (IDDSI 0) Discharge Diet: Cardiac Diets Cardiac Diet: Healthy Heart (2-3 Na+) Texture: Regular (IDDSI 7) Fluid Consistency: Thin (IDDSI 0) Activity: Restrictions or Other Recommendations: CODE STATUS: Code Status and Medical Interventions: CPR (Attempt to Resuscitate); Full Support Ordered at: 08/08/25 0936 Code Status (Patient has no pulse and is not breathing): CPR (Attempt to Resuscitate) Medical Interventions (Patient has pulse or is breathing): Full Support Level Of Support Discussed With: Patient No future appointments. Additional Instructions for the Follow-ups that You Need to Schedule Call MD With Problems / Concerns As directed Please seek medical attention for any of the following: Difficulty breathing, chest pain, passing out, strokelike symptoms, and/or any other concerning symptoms Order Comments: Please seek medical attention for any of the following: Difficulty breathing, chestpain, passing out, strokelike symptoms, and/or any other concerning symptoms Discharge Follow-up with PCP As directed Currently Documented PCP: No primary care provider on file. PCP Phone Number: None Follow Up Details: follow-up with primary care doctor in 5 to 7 days regarding this hospitalization Jackie Ndiaye MD 08/09/25 Time Spent on Discharge: I spent 34 minutes on this discharge activity which included: [id number] with the patient, reviewing the data in the system, coordination of the care with the nursing staff as well as consultants, documentation, and entering orders. [1] No Known Allergies * Miguelina Cohen MS CF-RETAIL SALES TEAMMATE - 08/08/2025 9:08 AM EDT Acute Care - Speech Language Pathology Initial Evaluation/Discharge [facility] Cognitive-Communication Evaluation Patient Name: Darci Campos : 1980 Today's Date: 08/08/2025 Admit Date: 08/08/2025 Visit Dx: No diagnosis found. Problem List[1] History reviewed. No pertinent past medical history. History reviewed. No pertinent surgical history. RETAIL SALES TEAMMATE Recommendation and Plan Recommended discharge disposition is based on the functional assessment performed by PT/OT/Speech therapy (as applicable) and may not reflect the medical necessity determined by your provider or services covered by an individual patient's insurance plan or patient resource. RETAIL SALES TEAMMATE Diagnosis: functional speech/language skills, functional cognitive- linguistic skills (08/08/25844) RETAIL SALES TEAMMATE Diagnosis Comments: Pt reports that he is at baseline level of function. No concerns noted on eval. RETAIL SALES TEAMMATE to sign off (08/08/25844) [facility] Criteria for Skilled Therapy Interventions Met: no problems identified which require skilled intervention (08/08/25844) Anticipated Discharge Disposition (RETAIL SALES TEAMMATE): No further RETAIL SALES TEAMMATE services warranted (08/08/25844) Therapy Frequency (RETAIL SALES TEAMMATE [facility]): evaluation only (08/08/25844) RETAIL SALES TEAMMATE EVALUATION (Last 72 Hours) RETAIL SALES TEAMMATE [facility] Evaluation Row Name 08/08/25844 Communication Assessment/Intervention Document Type discharge evaluation/summary -SM Subjective Information no complaints -SM Patient Observations alert;cooperative -SM Patient Effort good -SM Symptoms Noted During/After Treatment none -SM General Information Patient Profile Reviewed yes -SM Pertinent History Of Current Problem No significant past medical hx. Admit from [facility] for acute onset dizziness and ataxic gait -SM Precautions/Limitations, Vision WFL;for purposes of eval -SM Precautions/Limitations, Hearing WFL;for purposes of eval -SM Prior Level of Function-Communication WFL -SM Plans/Goals Discussed with patient;agreed upon - Barriers to Rehab none identified -SM Patient's Goals for Discharge patient did not state -SM Pain Pretreatment Pain Rating 0/10 - no pain -SM Posttreatment Pain Rating 0/10 - no pain -SM Comprehension Assessment/Intervention Comprehension Assessment/Intervention Auditory Comprehension -SM Auditory Comprehension Assessment/Intervention Auditory Comprehension (Communication) WFL -SM Expression Assessment/Intervention Expression Assessment/Intervention verbal expression -SM Verbal Expression Assessment/Intervention Verbal Expression WFL -SM Motor Speech Assessment/Intervention Motor Speech Function [facility] - Speech intelligibility 100%;with unfamiliar listener - Cognitive Assessment Intervention- RETAIL SALES TEAMMATE Cognitive Function (Cognition) WF - RETAIL SALES TEAMMATE Evaluation Clinical Impressions RETAIL SALES TEAMMATE Diagnosis functional speech/language skills;functional cognitive-linguistic skills - RETAIL SALES TEAMMATE Diagnosis Comments Pt reports that he is at baseline level of function. No concerns noted on eval. RETAIL SALES TEAMMATE to sign off -[facility] Criteria for Skilled Therapy Interventions Met no problems identified which require skilled intervention - Functional Impact no impact on function - Recommendations Therapy Frequency (RETAIL SALES TEAMMATE [facility]) evaluation only - Anticipated Discharge Disposition (RETAIL SALES TEAMMATE) No further RETAIL SALES TEAMMATE services warranted - User Benedict (r) = Recorded By, (t) = Taken By, (c) = Cosigned By Initials Name Effective Dates Miguelina Tran MS CF-RETAIL SALES TEAMMATE 03/29/25 - EDUCATION The patient has been educated in the following areas: Cognitive Impairment Communication Impairment. Time Calculation: Time Calculation- RETAIL SALES TEAMMATE Row Name 08/08/25 0908 Time Calculation- [facility] RETAIL SALES TEAMMATE Start Time 0845 - RETAIL SALES TEAMMATE Received On 08/08/25 - Untimed Charges 31178-YH Eval Speech and Production w/ Language Minutes 40 -SM Total Minutes Untimed Charges Total Minutes 40 -SM Total Minutes 40 -SM User Benedict (r) = Recorded By, (t) = Taken By, (c) = Cosigned By Initials Name Provider Type Miguelina Tran MS CF-RETAIL SALES TEAMMATE Speech and Language Pathologist Therapy Charges for Today Code Description Service Date Service Provider Modifiers Qty [id number] [facility] EVAL SPEECH AND PROD W LANG 3 08/08/2025 Miguelina Cohen MS CF-RETAIL SALES TEAMMATE GN 1 RETAIL SALES TEAMMATE Discharge Summary Anticipated Discharge Disposition (RETAIL SALES TEAMMATE): No further RETAIL SALES TEAMMATE services warranted MS JESUS GironRETAIL SALES TEAMMATE 08/08/2025 [1] Patient Active Problem List Diagnosis Dizziness documented in this encounter Medications at Time of Discharge atorvastatin (LIPITOR) 20 MG tablet Take 1 tablet by mouth Every Night. 30 tablet 08/09/2025 cetirizine (zyrTEC) 10 MG tablet Take 1 tablet by mouth Daily. meclizine (ANTIVERT) 25 MG tablet Take 1 tablet by mouth 3 (Three) Times a Day As Needed for Dizziness. 21 tablet 08/09/2025 PHARMACY MEDS TO BED CONSULT Use Daily. 08/09/2025 documented as of this encounter Progress Notes * Randee Borjas APRN - 08/09/2025 8:47 AM EDT Images from the original note were not included. Stroke Progress Note Chief Complaint: Dizziness Subjective Subjective Subjective: Events overnight. Patient states his dizziness is improved he is able to walk around the room without difficulty but he still notes he feels slightly off balance but much better than yesterday. We reviewed the results of his MRI which were negative for stroke. No headache today, vision is normal, no nausea. He tells me that he was having some sinus pressure last week. Review of Systems Constitutional: Negative for fever. HENT: Positive for sinus pressure. Eyes: Negative for visual disturbance. Respiratory: Negative for cough and shortness of breath. Cardiovascular: Negative for chest pain and palpitations. Gastrointestinal: Negative for nausea and vomiting. Musculoskeletal: Negative. Skin: Negative. Neurological: Positive for dizziness. Negative for facial asymmetry, speech difficulty, weakness, numbness and headaches. Psychiatric/Behavioral: Negative. Objective Objective Temp: [97.7 ??F (36.5 ??C)-98 ??F (36.7 ??C)] 97.9 ??F (36.6 ??C) Heart Rate: [57-82] 64 Resp: [18] 18 BP: (114-130)/(71-95) 114/83 Neurological Exam Mental Status Alert. Speech is normal. Language is fluent with no aphasia. Attention and concentration are normal. Cranial Nerves CN II: Visual chapman full to confrontation. CN III, IV, : Extraocular movements intact bilaterally. Normal lids and orbits bilaterally. Pupils equal round and reactive to light bilaterally. CN V: Facial sensation is normal. CN VII: Full and symmetric facial movement. CN XI: Shoulder shrug strength is normal. CN XII: Tongue midline without atrophy or fasciculations. Motor Normal muscle bulk throughout. No fasciculations present. Normal muscle tone. No abnormal involuntary movements. Strength is 5/5 throughout all four extremities. Sensory Light touch is normal in upper and lower extremities. Coordination Right: Sahomw-lm-ytsk normal.Left: Jpbmrr-lp-texn normal. Physical Exam Vitals reviewed. Constitutional: Appearance: Normal appearance. HENT: Head: Normocephalic and atraumatic. Eyes: General: Lids are normal. Extraocular Movements: Extraocular movements intact. Pupils: Pupils are equal, round, and reactive to light. Cardiovascular: Rate and Rhythm: Normal rate. Pulmonary: Effort: Pulmonary effort is normal. No respiratory distress. Musculoskeletal: Cervical back: Normal range of motion. Neurological: General: No focal deficit present. Mental Status: He is alert and oriented to person, place, and time. Mental status is at baseline. Cranial Nerves: No cranial nerve deficit. Sensory: No sensory deficit. Motor: Motor strength is normal.No weakness. Psychiatric: Mood and Affect: Mood normal. Speech: Speech normal. Behavior: Behavior normal. Results Review: I reviewed the patient's new clinical results. MRI Brain Without Contrast Result Date: 08/08/2025 Impression: No acute intracranial finding. Electronically Signed: Lorenzo Saravia MD 08/08/2025 5:06 PM EDT Workstation ID: [id number] -CTH wo on 08/07/2025 images from outside hospital were personally reviewed and showed no acute ischemic or hemorrhagic stroke -CTA of the head and neck images from 08/07/2025 from outside hospital were personally reviewed andshowed no flow limiting stenosis or LVO WBC Date Value Ref Range Status 08/08/2025 5.70 3.40 - 10.80 10*3/mm3 Final RBC Date Value Ref Range Status 08/08/2025 5.24 4.14 - 5.80 10*6/mm3 Final Hemoglobin Date Value Ref Range Status 08/08/2025 15.1 13.0 - 17.7 g/dL Final Hematocrit Date Value Ref Range Status 08/08/2025 45.6 37.5 - 51.0 % Final MCV Date Value Ref Range Status 08/08/2025 87.0 79.0 - 97.0 fL Final MCH Date Value Ref Range Status 08/08/2025 28.8 26.6 - 33.0 pg Final MCHC Date Value Ref Range Status 08/08/2025 33.1 31.5 - 35.7 g/dL Final RDW Date Value Ref Range Status 08/08/2025 13.0 12.3 - 15.4 % Final RDW-SD Date Value Ref Range Status 08/08/2025 40.9 37.0 - 54.0 fl Final MPV Date Value Ref Range Status 08/08/2025 10.0 6.0 - 12.0 fL Final Platelets Date Value Ref Range Status 08/08/2025 220 140 - 450 10*3/mm3 Final Neutrophil % Date Value Ref Range Status 08/08/2025 57.2 42.7 - 76.0 % Final Lymphocyte % Date Value Ref Range Status 08/08/2025 30.2 19.6 - 45.3 % Final Monocyte % Date Value Ref Range Status 08/08/2025 9.8 5.0 - 12.0 % Final Eosinophil % Date Value Ref Range Status 08/08/2025 1.9 0.3 - 6.2 % Final Basophil % Date Value Ref Range Status 08/08/2025 0.7 0.0 - 1.5 % Final Immature Grans % Date Value Ref Range Status 08/08/2025 0.2 0.0 - 0.5 % Final Neutrophils, Absolute Date Value Ref Range Status 08/08/2025 3.26 1.70 - 7.00 10*3/mm3 Final Lymphocytes, Absolute Date Value Ref Range Status 08/08/2025 1.72 0.70 - 3.10 10*3/mm3 Final Monocytes, Absolute Date Value Ref Range Status 08/08/2025 0.56 0.10 - 0.90 10*3/mm3 Final Eosinophils, Absolute Date Value Ref Range Status 08/08/2025 0.11 0.00 - 0.40 10*3/mm3 Final Basophils, Absolute Date Value Ref Range Status 08/08/2025 0.04 0.00 - 0.20 10*3/mm3 Final Immature Grans, Absolute Date Value Ref Range Status 08/08/2025 0.01 0.00 - 0.05 10*3/mm3 Final nRBC Date Value Ref Range Status 08/08/2025 0.0 0.0 - 0.2 /100 WBC Final Lab Results Component Value Date GLUCOSE 93 08/08/2025 BUN 10.4 08/08/2025 CREATININE 0.98 08/08/2025 NA 141 08/08/2025 K 4.4 08/08/2025 CL 104 08/08/2025 CALCIUM 9.3 08/08/2025 PROTEINTOT 6.9 08/08/2025 ALBUMIN 4.3 08/08/2025 ALT 26 08/08/2025 AST 24 08/08/2025 ALKPHOS 47 08/08/2025 BILITOT 0.8 08/08/2025 GLOB 2.6 08/08/2025 AGRATIO 1.7 08/08/2025 BCR 10.6 08/08/2025 ANIONGAP 9.8 08/08/2025 EGFR 95.7 08/08/2025 Lab 08/08/25 0736 HEMOGLOBIN A1C 5.53 Lipid Panel 08/08/2025 07:36 Lipid Panel Total Cholesterol 184 Triglycerides 87 HDL Cholesterol 42 VLDL Cholesterol 16 LDL Cholesterol 126 LDL/HDL Ratio 2.97 Assessment/Plan Assessment/Plan: 45-year-old male with no significant past medical history. He presented to [facility] on the evening of 08/07/2025 with complaints of acute onset dizziness that beganthe night before and has persisted throughout the day. NIH 0. OSH provider reports that CT head andCTA head/neck were read as unremarkable. He was not a candidate for IV thrombolytic therapy due to extended last known well. He was not a candidate for neurovascular intervention as there is no LVO on CT scan. He will be transferred to our facility for higher level of care and further stroke workup. Antiplatelet OPTICAL LAB TECHNICIAN: none Anticoagulant OPTICAL LAB TECHNICIAN: none Dizziness and ataxic gait, improving -Suspect symptoms are secondary to BPPV -MRI brain with melanie personally reviewed and negative; will dc stroke orderset -CTA imaging is without significant stenosis -Recommend continue PT/OT for Jordan geeanne; discussed with staff -Normal BP parameters -TTE is still pending -Aspirin is not needed at discharge -LDL was elevated at 126, he would benefit from a low-dose statin. No further stroke workup is needed at this time, we will sign off. From our standpoint patient is ready for discharge after working with PT and TTE today. He will need to follow-up with his primary care provider. Randee Borjas APRN 08/09/25 08:47 EDT * Dread Justin MD - 08/08/2025 12:17 PM EDT Stroke Progress Note Chief Complaint: Dizziness Subjective Subjective Subjective: The patient is lying down in the bed in NAD. No family were at the bedside. The patient stated thathe continues to have dizziness and feeling like he is in a boat when he is trying to walk. Denies having any new stroke or strokelike symptoms. I have a detailed discussion with patient regarding hisimaging findings what could possibly explain his symptoms. We also discussed management plan movingforward. All patient questions and concerns were answered. No other acute complains at this time Review of Systems Neurological: Dizziness and unsteady upon walking Objective Temp: [97.9 ??F (36.6 ??C)] 97.9 ??F (36.6 ??C) Heart Rate: [80] 80 Resp: [18] 18 BP: (133)/(96) 133/96 Objective GEN: lying in bed; in NAD HENT: normocephalic, non-erythematous oropharynx NEURO: Mental Status: A&O x 3, interactive, able to follow commands Speech: Intact Articulation CN 2-12: II - PERRLA, no nystagmus appreciated III, IV, - EOMI V - Facial sensation intact VII -no gross facial asymmetry VIII - Auditory acuity intact XII - Tongue protrudes midline Motor: Patient is able to move all 4 extremities against gravity with no drift appreciated Sensory: intact light touch throughout Gait/Station: Patient walks with 2 person assistance and was having difficulty keeping his balance and with lean to the left side at the time Results Review: I reviewed the patient's new clinical results. WBC Date Value Ref Range Status 08/08/2025 5.70 3.40 - 10.80 10*3/mm3 Final RBC Date Value Ref Range Status 08/08/2025 5.24 4.14 - 5.80 10*6/mm3 Final Hemoglobin Date Value Ref Range Status 08/08/2025 15.1 13.0 - 17.7 g/dL Final Hematocrit Date Value Ref Range Status 08/08/2025 45.6 37.5 - 51.0 % Final MCV Date Value Ref Range Status 08/08/2025 87.0 79.0 - 97.0 fL Final MCH Date Value Ref Range Status 08/08/2025 28.8 26.6 - 33.0 pg Final MCHC Date Value Ref Range Status 08/08/2025 33.1 31.5 - 35.7 g/dL Final RDW Date Value Ref Range Status 08/08/2025 13.0 12.3 - 15.4 % Final RDW-SD Date Value Ref Range Status 08/08/2025 40.9 37.0 - 54.0 fl Final MPV Date Value Ref Range Status 08/08/2025 10.0 6.0 - 12.0 fL Final Platelets Date Value Ref Range Status 08/08/2025 220 140 - 450 10*3/mm3 Final Neutrophil % Date Value Ref Range Status 08/08/2025 57.2 42.7 - 76.0 % Final Lymphocyte % Date Value Ref Range Status 08/08/2025 30.2 19.6 - 45.3 % Final Monocyte % Date Value Ref Range Status 08/08/2025 9.8 5.0 - 12.0 % Final Eosinophil % Date Value Ref Range Status 08/08/2025 1.9 0.3 - 6.2 % Final Basophil % Date Value Ref Range Status 08/08/2025 0.7 0.0 - 1.5 % Final Immature Grans % Date Value Ref Range Status 08/08/2025 0.2 0.0 - 0.5 % Final Neutrophils, Absolute Date Value Ref Range Status 08/08/2025 3.26 1.70 - 7.00 10*3/mm3 Final Lymphocytes, Absolute Date Value Ref Range Status 08/08/2025 1.72 0.70 - 3.10 10*3/mm3 Final Monocytes, Absolute Date Value Ref Range Status 08/08/2025 0.56 0.10 - 0.90 10*3/mm3 Final Eosinophils, Absolute Date Value Ref Range Status 08/08/2025 0.11 0.00 - 0.40 10*3/mm3 Final Basophils, Absolute Date Value Ref Range Status 08/08/2025 0.04 0.00 - 0.20 10*3/mm3 Final Immature Grans, Absolute Date Value Ref Range Status 08/08/2025 0.01 0.00 - 0.05 10*3/mm3 Final nRBC Date Value Ref Range Status 08/08/2025 0.0 0.0 - 0.2 /100 WBC Final Lab Results Component Value Date GLUCOSE 93 08/08/2025 BUN 10.4 08/08/2025 CREATININE 0.98 08/08/2025 NA 141 08/08/2025 K 4.4 08/08/2025 CL 104 08/08/2025 CALCIUM 9.3 08/08/2025 PROTEINTOT 6.9 08/08/2025 ALBUMIN 4.3 08/08/2025 ALT 26 08/08/2025 AST 24 08/08/2025 ALKPHOS 47 08/08/2025 BILITOT 0.8 08/08/2025 GLOB 2.6 08/08/2025 AGRATIO 1.7 08/08/2025 BCR 10.6 08/08/2025 ANIONGAP 9.8 08/08/2025 EGFR 95.7 08/08/2025 No radiology results for the last day -CTH wo on 08/07/2025 images from outside hospital were personally reviewed and showed no acute ischemic or hemorrhagic stroke -CTA of the head and neck images from 08/07/2025 from outside hospital were personally reviewed andshowed no flow limiting stenosis or LVO -MRI brain images is pending -Transthoracic echocardiogram is pending -A1c from 08/08/2025 was 5.53% -LDL from 08/08/2025 was 126 Assessment/Plan This is a 45-year-old male with no significant past medical history. He presented to [facility] on the evening of 08/07/2025 with complaints of acute onset dizziness that began the night before and has persisted throughout the day. NIH 0. OSH provider reports that CT head and CTA head/neck were read as unremarkable. He was not a candidate for IV thrombolytic therapy due to extended last known well. He was not a candidate for neurovascular intervention as there is no LVO on CT scan. He will be transferred to our facility for higher level of care and further stroke workup. Antiplatelet OPTICAL LAB TECHNICIAN: None Anticoagulant OPTICAL LAB TECHNICIAN: None #Dizziness and gait instability -Etiology of patient's symptoms could possibly be due to possible acute ischemic stroke affecting the cerebellum/brainstem versus benign paroxysmal positional vertigo -CTH wo on 08/07/2025 images from outside hospital were personally reviewed and showed no acute ischemic or hemorrhagic stroke -CTA of the head and neck images from 08/07/2025 from outside hospital were personally reviewed andshowed no flow limiting stenosis or LVO -MRI brain images is pending -Transthoracic echocardiogram is pending -A1c from 08/08/2025 was 5.53% -LDL from 08/08/2025 was 126 Recommendations -Continue aspirin 81 mg daily for secondary stroke prevention -Continue atorvastatin 80 mg nightly. Target LDL of less than 70 -Can consider meclizine as needed -Target systolic blood pressure goals of normotension -MRI brain with thin slices through the brainstem pending -TTE pending -Migraine cocktail as needed -Activity as tolerated, fall risk precautions -PT/OT/RETAIL SALES TEAMMATE evaluation #Essential hypertension -Normal blood pressure goals -Primary team to manage Stroke will continue to follow. Please call for any further questions or concerns Dread Justin MD, Msc, PhD Vascular Neurologist [facility] documented in this encounter H&P Notes * Jackie Ndiaye MD - 08/08/2025 7:22 AM EDT Images from the original note were not included. [facility] Medicine Services HISTORY AND PHYSICAL Patient Name: Darci Campos : 1980 Primary Care Physician: No primary care provider on file. Date of admission: 08/08/2025 Subjective Subjective Chief Complaint: Dizziness, difficulty walking HPI: Darci Campos is a 45 y.o. male with no known past medical history, who presented to [facility] for acute onset dizziness that began on 08/06 that has been persistent. He feels like he is on a boat, but when standing the room spins. Due to severity of symptoms, patient was extremelyataxic/had difficulty walking. Had 3 headaches in the past week and some neck discomfort. Denied fever, visual changes, chest pain, GI or symptoms. Patient reports significant chronic history of intermittent vertigo that usually lasts only a few seconds to less than a minute. At OSH, CTA head/neck read as wnl. Transferred here for further evaluation. Review of Systems As above Personal History Past Medical History: Diagnosis Date Sleep apnea Past Surgical History: Procedure Laterality Date APPENDECTOMY SHOULDER ARTHROSCOPY Family History: family history includes Heart disease in his father; Hypertension in his father; Leukemia in his mother. Social History: reports that he has never smoked. He has never used smokeless tobacco. He reports current alcohol use of about 4.0 standard drinks of alcohol per week. He reports that he does not usedrugs. Social History Social History Narrative Not on file Medications: cetirizine Allergies[1] Objective Objective Vital Signs: Temp: [97.9 ??F (36.6 ??C)] 97.9 ??F (36.6 ??C) Heart Rate: [80] 80 Resp: [18] 18 BP: (133)/(96) 133/96 Physical Exam Constitutional: No acute distress, awake, alert HENT: NCAT, mucous membranes moist Respiratory: Clear to auscultation bilaterally, respiratory effort normal Cardiovascular: RRR Gastrointestinal: Positive bowel sounds, soft, nontender, nondistended Musculoskeletal: No bilateral ankle edema Psychiatric: Appropriate affect, cooperative Neurologic: Alert, oriented, symmetric facies, ORO, PERRL, ORO, strength equal, speech clear Skin: No rashes Result Review: I have personally reviewed the results from the time of this admission to 08/08/2025 12:30 EDT and agree with these findings: [] Laboratory list / accordion [] Microbiology [] Radiology [] EKG/Telemetry [] Cardiology/Vascular [] Pathology [] Old records [] Other: Most notable findings include: LAB RESULTS: Lab 08/08/25 0736 WBC 5.70 HEMOGLOBIN 15.1 HEMATOCRIT 45.6 PLATELETS 220 NEUTROS ABS 3.26 IMMATURE GRANS (ABS) 0.01 LYMPHS ABS 1.72 MONOS ABS 0.56 EOS ABS 0.11 MCV 87.0 Lab 08/08/25 0736 SODIUM 141 POTASSIUM 4.4 CHLORIDE 104 CO2 27.2 ANION GAP 9.8 BUN 10.4 CREATININE 0.98 EGFR 95.7 GLUCOSE 93 CALCIUM 9.3 HEMOGLOBIN A1C 5.53 TSH 1.880 Lab 08/08/25 0736 TOTAL PROTEIN 6.9 ALBUMIN 4.3 GLOBULIN 2.6 ALT (SGPT) 26 AST (SGOT) 24 BILIRUBIN 0.8 ALK PHOS 47 Lab 08/08/25 0736 CHOLESTEROL 184 LDL CHOL 126* HDL CHOL 42 TRIGLYCERIDES 87 Brief Urine Lab Results None Microbiology Results (last 10 days) No results found for the last [address] Outside Head Result Date: 08/08/2025 This procedure was auto-finalized with no dictation required. CT Outside Head Result Date: 08/08/2025 This procedure was auto-finalized with no dictation required. CT Outside Neck Result Date: 08/08/2025 This procedure was auto-finalized with no dictation required. CT Outside Chest Result Date: 08/08/2025 This procedure was auto-finalized with no dictation required. Assessment & Plan Assessment & Plan Dizziness 45-year-old male with no significant past medical history, who presented to [facility] on 08/07 with acute onset dizziness that began on 08/06 that has persisted. CTA head/neck and CT head were read as unremarkable. He was transferred here for stroke neurology evaluation. Persistent dizziness Headache -CVA versus BPPV versus complex migraine -Stroke neurology consulted -MRI brain pending -TTE pending -Continue aspirin, statin -Migraine cocktail -PT/OT/speech -Neurochecks per protocol -If MRI negative, then PT for Jordan maneuver EYAL-doesn't use his CPAP DVT prophylaxis: SCDs for now while awaiting MRI brain CODE STATUS: FULL CODE Code Status (Patient has no pulse and is not breathing): CPR (Attempt to Resuscitate) Medical Interventions (Patient has pulse or is breathing): Full Support Level Of Support Discussed With: Patient Expected Discharge Expected discharge date/ time has not been documented. This note has been completed as part of a split-shared workflow. Signature: Electronically signed by Jackie Ndiaye MD, 08/08/25, 7:28 AM EDT [1] No Known Allergies documented in this encounter Consult Notes * Chica Timmnos RN - 08/08/2025 8:31 AM EDTAssociated Order(s): IP CONSULT TO OIL FIELD EQUIPMENT MECHANIC SUPERVISOR Chart review for ems educator consult. At the time of this review patient A1c is 5.5 , they have no noted history of diabetes and no home medications noted for treatment of diabetes. At this time we do not feel the patient would benefit from diabetes education. Thank you for this consult, should patient needs change please re consult us. * Bianca Banegas, ACTUARIAL TECHNICIAN - 08/07/2025 10:04 PM EDT Stroke Consult Note Patient Name: Darci Campos Age: 45 y.o. Sex: male : 1980 Primary Care Physician: No primary care provider on file. Referring Physician: OS ED provider Handedness: Right Race: Chief Complaint/Reason for Consultation: Dizziness, ataxic gait HPI: Darci Campos is a 45-year-old male with no significant past medical history. He presented to [facility] on the evening of 08/07/2025 with complaints of acute onset dizziness that began the night before and has persisted throughout the day. He describes the dizziness as constantly feeling like he is on a boat however with standing he does experience a room spinning sensation.OSH provider reports that the patient was unable to walk into the ER tonight and when they tested his gait he was noted to be extremely ataxic. OSH provider reports that CT head and CTA head/neck were read as unremarkable. OSH gave the patient Valium with no relief. Patient will be given 325 mg aspirin. He was not a candidate for IV thrombolytic therapy due to extended last known well. He was nota candidate for neurovascular intervention as there is no LVO on CT scan. He will be transferred toour facility for higher level of care and further stroke workup. On arrival to our facility NIH 0. BP 133/96. He currently complains of a minor headache and the sensation of feeling like he is on a boat. He tells me that he actually has been having progressive dizziness and at least 3 headaches in the past week. He does complain of neck pain but denies any chiropractor visits, hyperextension of the neck, MVC, etc. Last Known Normal Date/Time: Exact time unknown, has had dizziness throughout the week. Review of Systems Neurological: Positive for dizziness and light-headedness. No past medical history on file. No past surgical history on file. No family history on file. Social History[1] Allergies[2] Prior to Admission medications Not on File BP: ()/() Arterial Line BP: ()/() Neurological Exam Mental Status Awake, alert and oriented to person, place and time. Oriented to person, place, time and situation.Recent and remote memory are intact. Speech is normal. Language is fluent with no aphasia. Attention and concentration are normal. Cranial Nerves CN II: Visual chapman full to confrontation. CN III, IV, : Extraocular movements intact bilaterally. Pupils equal round and reactive to light bilaterally. CN V: Facial sensation is normal. CN VII: Full and symmetric facial movement. CN VIII: Hearing appears intact. CN XII: Tongue midline without atrophy or fasciculations. Motor Normal muscle bulk throughout. Normal muscle tone. Strength is 5/5 throughout all four extremities. Sensory Sensation is intact to light touch, pinprick, vibration and proprioception in all four extremities.No right-sided hemispatial neglect. No left-sided hemispatial neglect. Coordination Right: Rmzqrb-lk-[id number] normal. Uuug-qa-jnlb normal.Left: Jszdsy-lj-fnut normal. Ekkp-lb-lvku normal. Gait Normal gait. Not observed. Physical Exam Vitals and nursing note reviewed. HENT: Head: Normocephalic. Eyes: Extraocular Movements: Extraocular movements intact. Pupils: Pupils are equal, round, and reactive to light. Cardiovascular: Rate and Rhythm: Normal rate and regular rhythm. Pulses: Normal pulses. Heart sounds: Normal heart sounds. Pulmonary: Effort: Pulmonary effort is normal. No respiratory distress. Breath sounds: Normal breath sounds. Skin: General: Skin is warm and dry. Capillary Refill: Capillary refill takes less than 2 seconds. Neurological: General: No focal deficit present. Mental Status: He is oriented to person, place, and time. Motor: Motor strength is normal. Gait: Gait is intact. Psychiatric: Attention and Perception: Attention normal. Mood and Affect: Mood normal. Speech: Speech normal. Behavior: Behavior normal. Acute Stroke Data Thrombolytic Inclusion / Exclusion Criteria Time: 22:05 EDT Person Administering Scale: Bianca Banegas APRN YES NO INCLUSION CRITERIA CLASS I [x] [] Suspected diagnosis of acute ischemic stroke with measureable neurological deficit. Low NIHSS with disabling stroke symptoms. [] [x] Onset of stroke symptoms < 3 hours before beginning treatment >/ 18 years old Stroke symptom onset = time patient was last seen well or without symptoms (LKW) [] [x] Onset of symptoms between 3-4.5 hours: >/= 80 years old (safe Class IIa) with history of both diabetes and prior CVA (reasonable Class IIb) AND NIHSS </= 25 *If not eligible for IV Thrombolytic consider neuro intervention for LKW within 24 hours YES NO EXCLUSION CRITERIA (CONTRAINDICATIONS) CLASS III EVIDENCE HARM [] [] Blood pressure >185/110 medically refractory to IV medications [] [] Active bleeding at a non-compressible site [] [] Active intracranial hemorrhage (ICH) [] [] Symptoms suggestive of subarachnoid hemorrhage (SAH) [] [] GI bleed within 21 days [] [] Ischemic stroke within 3 months [] [] Severe head trauma within 3 months [] [] Intracranial or intraspinal surgery within 3 months [] [] Current GI malignancy [] [] Intracranial neoplasm [] [] Infective endocarditis [] [] Aortic arch dissection [] [] Active coagulopathy with INR >1.7, platelets <100,000, PTT > 40 sec, PT > 15 sec *For warfarin, administration can begin before blood tests resulted. Discontinue for above values. [] [] Treatment dose* of LMWH (Lovenox) in last 24 hours *prophylactic dosages are not a contraindication [] [] Concurrent use of antiplatelet agents' glycoprotein inhibitors IIb/IIIa (Integrilin, etc.) [] [] Thrombin or factor Xa inhibitors (Eliquis, Xarelto, Arixtra) taken in last 48 hours YES NO CLASS II: AIS WITH THE FOLLOWING CONDITIONS - TREATMENT RISKS SHOULD BE WEIGHED AGAINST POSSIBLE BENEFITS. [] [] Major trauma in last 14 days, recent major surgery in last 14 days, intracranial arterial dissection, giant unruptured and unsecured intracranial aneurysm, pericarditis [] [] The risks, benefits, and alternatives have been discussed with the patient or family related to the administration of IV thrombolytic therapy for stroke symptoms. [] [] I have discussed and reviewed the patient's case and imaging with the attending prior to IV thrombolytic therapy. TIME N/A Time IV thrombolytic administered Hospital Meds: Scheduled- Infusions- No current facility-administered medications for this encounter. PRNs- Functional Status Prior to Current Stroke/Deanna Score: 0 NIH Stroke Scale Time: 22:05 EDT Person Administering Scale: Bianca Banegas APRN 1a. Level of Consciousness: 0-->Alert, keenly responsive 1b. LOC Questions: 0-->Answers both questions correctly 1c. LOC Commands: 0-->Performs both tasks correctly 2. Best Gaze: 0-->Normal 3. Visual: 0-->No visual loss 4. Facial Palsy: 0-->Normal symmetrical movements 5a. Motor Arm, Left: 0-->No drift, limb holds 90 (or 45) degrees for full 10 secs 5b. Motor Arm, Right: 0-->No drift, limb holds 90 (or 45) degrees for full 10 secs 6a. Motor Leg, Left: 0-->No drift, leg holds 30 degree position for full 5 secs 6b. Motor Leg, Right: 0-->No drift, leg holds 30 degree position for full 5 secs 7. Limb Ataxia: 0-->Absent 8. Sensory: 0-->Normal, no sensory loss 9. Best Language: 0-->No aphasia, normal 10. Dysarthria: 0-->Normal 11. Extinction and Inattention (formerly Neglect): 0-->No abnormality Total (NIH Stroke Scale): 0 Results Reviewed: I have personally reviewed current lab, radiology, and data. -OSH CT head reported as unremarkable -OSH CTA head/neck reported as unremarkable Assessment/Plan: This is a 45-year-old male with no significant past medical history. He presented to [facility] on the evening of 08/07/2025 with complaints of acute onset dizziness that began the night before and has persisted throughout the day. NIH 0. OSH provider reports that CT head and CTA head/neck were read as unremarkable. He was not a candidate for IV thrombolytic therapy due to extended last known well. He was not a candidate for neurovascular intervention as there is no LVO on CT scan. He will be transferred to our facility for higher level of care and further stroke workup. Antiplatelet OPTICAL LAB TECHNICIAN: None Anticoagulant OPTICAL LAB TECHNICIAN: None Dizziness Differential diagnosis includes posterior circulation CVA versus BPPV versus complex migraine -TIA/CVA order set without thrombolytic therapy has been initiated -NPO until bedside nursing dysphagia screen completed -MRI brain with thin slices through the brainstem pending -TTE pending -A1c and lipid panel in AM -Loaded with 325 mg aspirin at OSH, will continue aspirin 81 mg daily for now -Begin atorvastatin 80 mg nightly -Migraine cocktail -Activity as tolerated, fall risk precautions -PT/OT/RETAIL SALES TEAMMATE evaluation -Please send OSH radiology disc down for upload 2. Essential hypertension -Normal blood pressure goals - Primary team to manage Plan of care was discussed with OSH provider and Dr. Adams (hospitalist). Stroke neurology will continue to follow. Please call with any questions or concerns. Thank you for this consult. Bianca Banegas APRN Neuro Stroke August 07, 2025 22:05 EDT [1] [2] Not on File documented in this encounter Nursing Notes * Irma Joyner PT - 08/09/2025 10:00 AM EDT Goal Outcome Evaluation: Plan of Care Reviewed With: patient Progress: improving Outcome Evaluation: Sara Hallpike performed. Pt negative for nystagmus and vertiginous symptoms bilaterally. Orthostatics assessed and also negative. Given negative Bedford Hallpike and pt c/o of fullnessin ears and tinnitus, this PT more suspicious of vestibular neuritis. MD notified. PT rec home withassist and OP vestibular PT upon dc. Anticipated Discharge Disposition (PT): home with assist, home with outpatient therapy services * Jolene Zambrano RN - 08/09/2025 4:23 AM EDT Problem: Adult Inpatient Plan of Care Goal: Plan of Care Review Outcome: Progressing Flowsheets (Taken 08/09/2025 0422) Progress: no change Plan of Care Reviewed With: patient Goal: Patient-Specific Goal (Individualized) Outcome: Progressing Goal: Absence of Hospital-Acquired Illness or Injury Outcome: Progressing Intervention: Identify and Manage Fall Risk Recent Flowsheet Documentation Taken 08/09/2025 0200 by Jolene Zambrano RN Safety Promotion/Fall Prevention: activity supervised assistive device/personal items within reach clutter free environment maintained fall prevention program maintained nonskid shoes/slippers when out of bed room organization consistent safety round/check completed Taken 08/09/2025 0000 by Jolene Zambrano RN Safety Promotion/Fall Prevention: activity supervised assistive device/personal items within reach clutter free environment maintained fall prevention program maintained nonskid shoes/slippers when out of bed room organization consistent safety round/check completed Taken 08/08/2025 2200 by Jolene Zambrano RN Safety Promotion/Fall Prevention: activity supervised assistive device/personal items within reach clutter free environment maintained fall prevention program maintained nonskid shoes/slippers when out of bed room organization consistent safety round/check completed Taken 08/08/20251999 by Jolene Zambrano RN Safety Promotion/Fall Prevention: activity supervised assistive device/personal items within reach clutter free environment maintained fall prevention program maintained nonskid shoes/slippers when out of bed room organization consistent safety round/check completed Intervention: Prevent Skin Injury Recent Flowsheet Documentation Taken 08/09/2025 0200 by Jolene Zambrano RN Body Position: position changed independently Skin Protection: incontinence pads utilized silicone border foam - heel silicone border foam - sacrum/coccyx skin sealant/moisture barrier applied Taken 08/09/2025 0000 by Jolene Zambrano RN Body Position: position changed independently Skin Protection: incontinence pads utilized silicone border foam - heel silicone border foam - sacrum/coccyx skin sealant/moisture barrier applied Taken 08/08/2025 2200 by Jolene Zambrano RN Body Position: position changed independently Skin Protection: incontinence pads utilized silicone border foam - heel silicone border foam - sacrum/coccyx skin sealant/moisture barrier applied Taken 08/08/20251999 by Jolene Zambrano RN Body Position: position changed independently Skin Protection: incontinence pads utilized silicone border foam - heel silicone border foam - sacrum/coccyx skin sealant/moisture barrier applied Intervention: Prevent Infection Recent Flowsheet Documentation Taken 08/09/2025 0200 by Jolene Zambrano RN Infection Prevention: cohorting utilized environmental surveillance performed equipment surfaces disinfected hand hygiene promoted personal protective equipment utilized rest/sleep promoted single patient room provided Taken 08/09/2025 0000 by Jolene Zambrano RN Infection Prevention: cohorting utilized environmental surveillance performed equipment surfaces disinfected hand hygiene promoted personal protective equipment utilized rest/sleep promoted single patient room provided Taken 08/08/20250 by Jolene Zambrano RN Infection Prevention: cohorting utilized environmental surveillance performed equipment surfaces disinfected hand hygiene promoted personal protective equipment utilized rest/sleep promoted single patient room provided Taken 08/08/20251999 by Jolene Zambrano RN Infection Prevention: cohorting utilized environmental surveillance performed equipment surfaces disinfected hand hygiene promoted personal protective equipment utilized rest/sleep promoted single patient room provided Goal: Optimal Comfort and Wellbeing Outcome: Progressing Intervention: Monitor Pain and Promote Comfort Recent Flowsheet Documentation Taken 08/09/2025 0200 by Jolene Zambrano RNfront end architect Interventions: care clustered position adjusted pillow support provided quiet environment facilitated Taken 08/09/2025 0000 by Jolene Zambrano RNfront end architect Interventions: care clustered position adjusted pillow support provided quiet environment facilitated Taken 08/08/20252199 by Jolene Zambrano RNfront end architect Interventions: care clustered position adjusted pillow support provided quiet environment facilitated Taken 08/08/20251999 by Jolene Zambrano RNfront end architect Interventions: care clustered position adjusted pillow support provided quiet environment facilitated Intervention: Provide Person-Centered Care Recent Flowsheet Documentation Taken 08/09/2025 0200 by Jolene Zambrano RN Trust Relationship/Rapport: care explained choices provided emotional support provided empathic listening provided questions answered questions encouraged reassurance provided thoughts/feelings acknowledged Taken 08/09/2025 0000 by Jolene Zambrano RN Trust Relationship/Rapport: care explained choices provided emotional support provided empathic listening provided questions answered questions encouraged reassurance provided thoughts/feelings acknowledged Taken 08/08/2025 2200 by Jolene Zambrano RN Trust Relationship/Rapport: care explained choices provided emotional support provided empathic listening provided questions answered questions encouraged reassurance provided thoughts/feelings acknowledged Taken 08/08/20251999 by Jolene Zambrano RN Trust Relationship/Rapport: care explained choices provided emotional support provided empathic listening provided questions answered questions encouraged reassurance provided thoughts/feelings acknowledged Goal: Readiness for Transition of Care Outcome: Progressing Problem: Fall Injury Risk Goal: Absence of Fall and Fall-Related Injury Outcome: Progressing Intervention: Identify and Manage Contributors Recent Flowsheet Documentation Taken 08/08/20251999 by Jolene Zambrano RN Medication Review/Management: medications reviewed Self-Care Promotion: independence encouraged BADL personal objects within reach BADL personal routines maintained Intervention: Promote Injury-Free Environment Recent Flowsheet Documentation Taken 08/09/2025 0200 by Jolene Zambrano RN Safety Promotion/Fall Prevention: activity supervised assistive device/personal items within reach clutter free environment maintained fall prevention program maintained nonskid shoes/slippers when out of bed room organization consistent safety round/check completed Taken 08/09/2025 0000 by Jolene Zambrano RN Safety Promotion/Fall Prevention: activity supervised assistive device/personal items within reach clutter free environment maintained fall prevention program maintained nonskid shoes/slippers when out of bed room organization consistent safety round/check completed Taken 08/08/2025 2200 by Jolene Zambrano RN Safety Promotion/Fall Prevention: activity supervised assistive device/personal items within reach clutter free environment maintained fall prevention program maintained nonskid shoes/slippers when out of bed room organization consistent safety round/check completed Taken 08/08/20251999 by Jolene Zambrano RN Safety Promotion/Fall Prevention: activity supervised assistive device/personal items within reach clutter free environment maintained fall prevention program maintained nonskid shoes/slippers when out of bed room organization consistent safety round/check completed Goal Outcome Evaluation: Plan of Care Reviewed With: patient Progress: no change * Mercedez Martinez RN - 08/08/2025 4:57 PM EDT Goal Outcome Evaluation: Pt able to ambulate sba, currently resting in chair without complaint. NIH performed by charge preparation technician -pt tolerating diet, cont to monitor * Mercedez Martinez RN - 08/08/2025 11:40 AM EDT This RN not NIH certified. occupational medicine specialist alerted at 0700 to assist with NIH and she verbally agreed to perform this task. * Ileana Ruiz OT - 08/08/2025 10:08 AM EDT Goal Outcome Evaluation: Plan of Care Reviewed With: patient Progress: no change Outcome Evaluation: Pt. presents below baseline with with ADLs and functional mobility. Limited by decreased activity tolerance, generalized weakness, and balance. Skilled OT services warranted to promote return to PLOF. Recommend home with 24/7 assist and OP therapy. * Julieta Reese PT - 08/08/2025 10:07 AM EDT Goal Outcome Evaluation: Plan of Care Reviewed With: patient Progress: no change Outcome Evaluation: PT initial eval completed. Pt presents below baseline with instability during gait. He ambulated in hallway with min Ax2 and UE support. Pt would benefit from IPPT for addressing deficits related to endurance, balance, and coordination. Rec d/c home with 24/7 assist, RW, and OPPT. Anticipated Discharge Disposition (PT): home with 24/7 care, home with outpatient therapy services * Miguelina Cohen MS CF-RETAIL SALES TEAMMATE - 08/08/2025 9:07 AM EDT Goal Outcome Evaluation: Plan of Care Reviewed With: patient Anticipated Discharge Disposition (RETAIL SALES TEAMMATE): No further RETAIL SALES TEAMMATE services warranted RETAIL SALES TEAMMATE Diagnosis: functional speech/language skills, functional cognitive- linguistic skills (08/08/25 0845) RETAIL SALES TEAMMATE Diagnosis Comments: Pt reports that he is at baseline level of function. No concerns noted on eval. RETAIL SALES TEAMMATE to sign off (08/08/25 0845) documented in this encounter Miscellaneous Notes * Case Management/Social Work - Susan Weiss, RN - 08/09/2025 2:52 PM EDT Continued Stay Note [facility] Patient Name: Darci Campos Today's Date: 08/09/2025 Admit Date: 08/08/2025 Plan: home Discharge Plan Row Name 08/09/25 7787 Plan Plan Comments Outpt PT order has been faxed to [address] which is the only PT in network [place] need to call to arrange his first visit. Discharge Codes No documentation. Expected Discharge Date and Time Expected Discharge Date Expected Discharge Time Aug 09, 2025 Susan Weiss RN * Therapy Re-Evaluation - Irma Joyner PT - 08/09/2025 10:00 AM EDT Images from the original note were not included. Patient Name: Darci Campos : 1980 Today's Date: 08/09/2025 Admit Date: 08/08/2025 Visit Dx: No diagnosis found. Problem List[1] Past Medical History: Diagnosis Date Sleep apnea Past Surgical History: Procedure Laterality Date APPENDECTOMY SHOULDER ARTHROSCOPY General Information Row Name 08/09/25 1026 Physical Therapy Time and Intention Document Type re-evaluation -KR Mode of Treatment individual therapy;physical therapy -KR Row Name 08/09/25 1026 General Information Patient Profile Reviewed yes -KR Existing Precautions/Restrictions fall;other (see comments) dizziness w/ mobility -KR Barriers to Rehab none identified -KR Row Name 08/09/25 1026 Cognition Orientation Status (Cognition) oriented x 4 -KR Row Name 08/09/25 1026 Safety Issues/Impairments Affecting Functional Mobility Impairments Affecting Function (Mobility) balance;coordination;endurance/activity tolerance -KR User Benedict (r) = Recorded By, (t) = Taken By, (c) = Cosigned By Initials Name Provider Type Irma Mendieta PT Physical Therapist Mobility Row Name 08/09/25 1026 Bed Mobility Bed Mobility supine-sit;sit-supine -KR Supine-Sit [place] (Bed Mobility) standby assist -KR Sit-Supine [place] (Bed Mobility) standby assist -KR Comment, (Bed Mobility) [place]-Hallpike performed and negative for nystagmus and vertiginous sx bilaterally. Orthostatics also assessed; BP sup 134/92; BP sit 138/100; BP stand 145/99. -KR Row Name 08/09/25 1026 Bed-Chair Transfer Bed-Chair [place] (Transfers) standby assist -KR Row Name 08/09/25 1026 Sit-Stand Transfer Sit-Stand [place] (Transfers) standby assist -KR Comment, (Sit-Stand Transfer) 1x from chair, 2x from bed -KR Row Name 08/09/25 1026 Gait/Stairs (Locomotion) [place] Level (Gait) contact guard -KR Distance in Feet (Gait) 350 -KR Deviations/Abnormal Patterns (Gait) base of support, narrow;efe decreased;gait speed decreased;stride length decreased -KR Comment, (Gait/Stairs) occasional R LOB, however able to recover without additional assist. -KR User Benedict (r) = Recorded By, (t) = Taken By, (c) = Cosigned By Initials Name Provider Type Irma Mendieta PT Physical Therapist Obj/Interventions Row Name 08/09/25 1028 Balance Balance Assessment sitting static balance;sitting dynamic balance;standing static balance;standing dynamic balance -KR Static Sitting Balance independent -KR Dynamic Sitting Balance independent -KR Position, Sitting Balance unsupported;sitting in chair;sitting edge of bed -KR Static Standing Balance standby assist -KR Dynamic Standing Balance contact guard -KR Position/Device Used, Standing Balance unsupported -KR Balance Interventions sitting;standing;sit to stand;dynamic;static -KR Row Name 08/09/25 1028 Sensory Assessment (Somatosensory) Sensory Assessment pt reports feeling like he is walking on clouds. Proprioception at B great toes and B ankles intact. -KR User Benedict (r) = Recorded By, (t) = Taken By, (c) = Cosigned By Initials Name Provider Type Irma Mendieta PT Physical Therapist Goals/Plan Row Name 08/09/25 1129 Bed Mobility Goal 1 (PT) Activity/Assistive Device (Bed Mobility Goal 1, PT) sit to supine;supine to sit -KR [place] Level/Cues Needed (Bed Mobility Goal 1, PT) independent -KR Time Frame (Bed Mobility Goal 1, PT) short term goal (STG);5 days -KR Progress/Outcomes (Bed Mobility Goal 1, PT) goal met -KR Row Name 08/09/25 1129 Transfer Goal 1 (PT) Activity/Assistive Device (Transfer Goal 1, PT) upb-nm-sxigj/jcrko-ge-lqr;hfs-op-hewyf/awdqr-br-wov-KR [place] Level/Cues Needed (Transfer Goal 1, PT) independent -KR Time Frame (Transfer Goal 1, PT) terminal operations manager goal (LTG);1 week -KR Progress/Outcome (Transfer Goal 1, PT) goal revised this date -KR Row Name 08/09/25 1129 Gait Training Goal 1 (PT) Activity/Assistive Device (Gait Training Goal 1, PT) gait (walking locomotion);assistive device use-KR [place] Level (Gait Training Goal 1, PT) independent -KR Distance (Gait Training Goal 1, PT) 350 -KR Time Frame (Gait Training Goal 1, PT) intermediate goal (LTG);1 week -KR Row Name 08/09/25 1129 Therapy Assessment/Plan (PT) Planned Therapy Interventions (PT) balance training;bed mobility training;gait training;home exercise program;neuromuscular re-education;patient/family education;postural re-education;transfer training;stretching;strengthening;stair training;ROM (range of motion);vestibular therapy -KR User Benedict (r) = Recorded By, (t) = Taken By, (c) = Cosigned By Initials Name Provider Type Irma Mendieta, PT Physical Therapist Clinical Impression Row Name 08/09/25 1028 Pain Pretreatment Pain Rating 0/10 - no pain -KR Posttreatment Pain Rating 0/10 - no pain -KR Row Name 08/09/25 1028 Plan of Care Review Plan of Care Reviewed With patient -KR Progress improving -KR Outcome Evaluation [place] Hallpike performed. Pt negative for nystagmus and vertiginous symptoms bilaterally. Orthostatics assessed and also negative. Given negative Sara Hallpike and pt c/o of fullness in ears and tinnitus, this PT more suspicious of vestibular neuritis. notified. PT rec home with assist and OP vestibular PT upon dc. -KR Row Name 08/09/25 1028 Therapy Assessment/Plan (PT) Patient/Family Therapy Goals Statement (PT) to get rid of dizziness -KR Rehab Potential (PT) good -KR Criteria for Skilled Interventions Met (PT) yes;meets criteria;skilled treatment is necessary -KR Therapy Frequency (PT) daily -KR Predicted Duration of Therapy Intervention (PT) 1 week -KR Row Name 08/09/25 1028 Vital Signs Pre Systolic BP Rehab 134 -KR Pre Treatment Diastolic BP 92 -KR Intra Systolic BP Rehab 138 -KR Intra Treatment Diastolic BP 100 -KR Post Systolic BP Rehab 145 -KR Post Treatment Diastolic BP 99 -KR Pre Patient Position Supine -KR Intra Patient Position Sitting -KR Post Patient Position Standing -KR Row Name 08/09/25 1028 Positioning and Restraints Pre-Treatment Position in bed -KR Post Treatment Position chair -KR In Chair notified nsg;call light within reach;encouraged to call for assist;waffle cushion;sitting exit alarm unchanged -KR User Benedict (r) = Recorded By, (t) = Taken By, (c) = Cosigned By Initials Name Provider Type Irma Mendieta PT Physical Therapist Outcome Measures Row Name 08/09/25 1031 08/09/25 0817 How much help from another person do you currently need... Turning from your back to your side while in flat bed without using bedrails? 4 -KR 4 -MD Moving from lying on back to sitting on the side of a flat bed without bedrails? 4 -KR 4 -MD Moving to and from a bed to a chair (including a wheelchair)? 4 -KR 3 -MD Standing up from a chair using your arms (e.g., wheelchair, bedside chair)? 4 - KR 3 -MD Climbing 3-5 steps with a railing? 3 -KR 3 -MD To walk in hospital room? 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 Point: Body mechanics (Done) Learning Progress Summary Patient Acceptance, E, VU by KR at 08/09/2025 1031 Acceptance, E,D, VU,NR by AB at 08/08/2025 1154 Point: Precautions (Done) Learning Progress Summary Patient Acceptance, E, VU by KR at 08/09/2025 1031 Acceptance, E,D, VU,NR by AB at 08/08/2025 1154 User Benedict Initials Effective Dates Name Provider Type Discipline AB 07/16/22 - Julieta Reese, PT Physical Therapist PT IZAIAH 10/23/22 - Irma Joyner PT Physical Therapist PT PT Recommendation and Plan Recommended discharge disposition is based on the functional assessment performed by PT/OT/Speech therapy (as applicable) and may not reflect the medical necessity determined by your provider or services covered by an individual patient's insurance plan or patient resource. Planned Therapy Interventions (PT): balance training, bed mobility training, gait training, home exercise program, neuromuscular re-education, patient/family education, postural re-education, transfer training, stretching, strengthening, stair training, ROM (range of motion), vestibular therapy Therapy Frequency (PT): daily Progress: improving Outcome Evaluation: [place] Hallpike performed. Pt negative for nystagmus and vertiginous symptoms bilaterally. Orthostatics assessed and also negative. Given negative Sara Hallpike and pt c/o of fullnessin ears and tinnitus, this PT more suspicious of vestibular neuritis. MD notified. PT rec home withassist and OP vestibular PT upon dc. Time Calculation: PT Charges Row Name 08/09/25 1032 Time Calculation Start Time 1000 -KR PT Received On 08/09/25 -KR Timed Charges 78048 - PT Therapeutic Activity Minutes 23 -KR Untimed Charges PT Eval/Re-eval Minutes 20 -KR Total Minutes Timed Charges Total Minutes 23 -KR Untimed Charges Total Minutes 20 -KR Total Minutes 43 -KR User Benedict (r) = Recorded By, (t) = Taken By, (c) = Cosigned By Initials Name Provider Type Irma Mendieta, PT Physical Therapist Therapy Charges for Today Code Description Service Date Service Provider Modifiers Qty [id number] PT THERAPEUTIC ACT EA 15 MIN 08/09/2025 Irma Joyner, PT GP 2 [id number] PT RE-EVAL ESTABLISHED PLAN 2 08/09/2025 Irma Joyner PT GP 1 PT G-Codes Outcome Measure Options: AM-PAC 6 Clicks Basic Mobility (PT) AM-PAC 6 Clicks Score (PT): 22 AM-PAC 6 Clicks Score (OT): 19 Modified [place] Scale: 3 - Moderate disability. Requiring some help, but able to walk without assistance. PT Discharge Summary Anticipated Discharge Disposition (PT): home with assist, home with outpatient therapy services Irma Joyner PT 08/09/2025 [1] Patient Active Problem List Diagnosis Dizziness * Case Management/Social Work - Susan Weiss RN - 08/08/2025 11:47 AM EDT Images from the original note were not included. Discharge Planning Assessment [facility] Patient Name: Darci Campos Today's Date: 08/08/2025 Admit Date: 08/08/2025 Plan: home Discharge Needs Assessment Row Name 08/08/25 1145 Living Environment People in Home spouse;grandchild(artie) Current Living Arrangements home Potentially Unsafe Housing Conditions none In the past 12 months has the [email or web address], gas, oil, or water [employer] threatened to shut off services in your home? No Primary Care Provided by self Provides Primary Care For no one Family Caregiver if Needed spouse Quality of Family Relationships involved;helpful Able to Return to Prior Arrangements yes Resource/Environmental Concerns Resource/Environmental Concerns none Transportation Concerns none Transportation Needs In the past 12 months, has lack of transportation kept you from medical appointments or from getting medications? no In the past 12 months, has lack of transportation kept you from meetings, work, or from getting things needed for daily living? No Food Insecurity Within the past 12 months, you worried that your food would run out before you got the money to buymore. Never true Within the past 12 months, the food you bought just didn't last and you didn't have money to get more. Never true Transition Planning Patient/Family Anticipates Transition to home with family Patient/Family Anticipated Services at Transition none Transportation Anticipated family or friend will provide Discharge Needs Assessment Readmission Within the Last 30 Days no previous admission in last 30 days Equipment Currently Used at Home cpap Concerns to be Addressed discharge planning Do you want help finding or keeping work or a job? I do not need or want help Do you want help with school or training? For example, starting or completing job training or getting a high school diploma, GED or equivalent No Anticipated Changes Related to Illness none Equipment Needed After Discharge none Discharge Plan Row Name 08/08/25 1146 Plan Plan home Patient/Family in Agreement with Plan yes Plan Comments Pt lives with his in [facility]. He was independent with ADLs and mobilityprior to admit. Owns a cpap but no other dme. At this time his plan for discharge is to retun home.Cm will follow for dc needs Final Discharge Disposition Code 01 - home or self-care Continued Care and Services - Admitted Since 08/08/2025 No active coordination exists. Demographic Summary Row Name 08/08/25 1144 General Information Admission Type inpatient Referral Source physician Reason for Consult discharge planning Preferred Language [place] Contact Information Permission Granted to Share Info With family/designee Contact Information Ondina Campos Functional Status Row Name 08/08/25 1145 Functional Status Usual Activity Tolerance good Current Activity Tolerance good Physical Activity On average, how many days per week do you engage in moderate to strenuous exercise (like a brisk walk)? 0 days On average, how many minutes do you engage in exercise at this level? 0 min Number of minutes of exercise per week 0 Functional Status, IADL Medications independent Meal Preparation independent Housekeeping independent Laundry independent Shopping independent If for any reason you need help with day-to-day activities such as bathing, preparing meals, shopping, managing finances, etc., do you get the help you need? I get all the help I need Mental Status General Appearance WDL WDL Mental Status Summary Recent Changes in Mental Status/Cognitive Functioning no changes Employment/ Employment Status other (see comments) Current or Previous Occupation not applicable Psychosocial No documentation. Abuse/Neglect No documentation. Legal No documentation. Substance Abuse No documentation. Patient Forms No documentation. Susan E Abhishek, RN * Therapy Evaluation - Ileana Ruiz OT - 08/08/2025 10:08 AM EDT Images from the original note were not included. Patient Name: Darci Campos : 1980 Today's Date: 08/08/2025 Admit Date: 08/08/2025 Visit Dx: No diagnosis found. Problem List[1] History reviewed. No pertinent past medical history. History reviewed. No pertinent surgical history. General Information Row Name 08/08/25 1051 OT Time and Intention Document Type evaluation - Mode of Treatment occupational therapy - Patient Effort good - Row Name 08/08/25 1051 General Information Patient Profile Reviewed yes - Prior Level of Function independent:;all household mobility;ADL's;[facility] - Existing Precautions/Restrictions fall - Barriers to Rehab medically complex - Row Name 08/08/25 1051 Living Environment Current Living Arrangements home - People in Home grandchild(artie);spouse - Row Name 08/08/25 1051 Home Main Entrance Number of Stairs, Main Entrance none - Row Name 08/08/25 1051 Stairs Within Home, Primary Stairs, Within Home, Primary All needs met on main floor - Number of Stairs, Within Home, Primary none - Row Name 08/08/25 1051 Cognition Orientation Status (Cognition) oriented x 4 - Row Name 08/08/25 1051 Safety Issues/Impairments Affecting Functional Mobility Safety Issues Affecting Function (Mobility) safety precaution awareness;safety precautions follow-through/compliance;sequencing abilities - Impairments Affecting Function (Mobility) balance;coordination;strength;endurance/activity tolerance - User Benedict (r) = Recorded By, (t) = Taken By, (c) = Cosigned By Initials Name Provider Type Ileana Ruiz OT Occupational Therapist Mobility/ADL's Row Name 08/08/25 1053 Bed Mobility Bed Mobility scooting/bridging;supine-sit - Scooting/Bridging [place] (Bed Mobility) contact guard - Supine-Sit [place] (Bed Mobility) contact guard - Assistive Device (Bed Mobility) bed rails;head of bed elevated - Comment, (Bed Mobility) CGA for safety -[facility] Name 08/08/25 105 Transfers Transfers sit-stand transfer;bed-chair transfer - Comment, (Transfers) VC's for hand placement and sequencing. - Row Name 08/08/25 105 Bed-Chair Transfer Bed-Chair [place] (Transfers) verbal cues;minimum assist (75% patient effort) - Assistive Device (Bed-Chair Transfers) other (see comments) B UE support - Row Name 08/08/25 105 Sit-Stand Transfer Sit-Stand [place] (Transfers) minimum assist (75% patient effort);verbal cues - Assistive Device (Sit-Stand Transfers) other (see comments) B UE support -[facility] Name 08/08/25 105 Activities of Daily Living BADL Assessment/Intervention lower body dressing;upper body dressing;grooming -[facility] Name 08/08/25 105 Lower Body Dressing Assessment/Training [place] Level (Lower Body Dressing) minimum assist (75% patient effort);lower body dressing skills -[facility] Name 08/08/25 105 Upper Body Dressing Assessment/Training [place] Level (Upper Body Dressing) don;pajama/robe;minimum assist (75% patient effort) - Position (Upper Body Dressing) edge of bed sitting -[facility] Name 08/08/25 105 Grooming Assessment/Training [place] Level (Grooming) grooming skills;set up - Position (Grooming) edge of bed sitting - User Benedict (r) = Recorded By, (t) = Taken By, (c) = Cosigned By Initials Name Provider Type Ileana Ruiz OT Occupational Therapist Obj/Interventions [facility] Name 08/08/25 1054 Sensory Assessment (Somatosensory) Sensory Assessment (Somatosensory) UE sensation intact -[facility] Name 08/08/25 105 Vision Assessment/Intervention Visual Impairment/Limitations -- Reports R eye deficits -[facility] Name 08/08/25 1054 Range of Motion Comprehensive General Range of Motion bilateral upper extremity ROM WFL -[facility] Name 08/08/25 105 Strength Comprehensive (MMT) General Manual Muscle Testing (MMT) Assessment upper extremity strength deficits identified -[facility] Name 08/08/25 105 Upper Extremity (Manual Muscle Testing) Upper Extremity: Manual Muscle Testing (MMT) left UE strength is WFL;right UE strength is WFL - Row Name 08/08/25 1054 Motor Skills Motor Skills functional endurance - Functional Endurance decreased activity tolerance - Row Name 08/08/25 1054 Balance Balance Assessment sitting static balance;sitting dynamic balance;standing static balance;standing dynamic balance - Static Sitting Balance standby assist - Dynamic Sitting Balance contact guard - Position, Sitting Balance unsupported;sitting edge of bed - Static Standing Balance minimal assist;verbal cues - Dynamic Standing Balance minimal assist;2-person assist;verbal cues - Position/Device Used, Standing Balance supported;other (see comments) B UE support - Balance Interventions sitting;standing;sit to stand;supported;occupation based/functional task;weight shifting activity - Comment, Balance Min A to steady - User Benedict (r) = Recorded By, (t) = Taken By, (c) = Cosigned By Initials Name Provider Type Ileana Ruiz OT Occupational Therapist Goals/Plan Row Name 08/08/25 1056 Transfer Goal 1 (OT) Activity/Assistive Device (Transfer Goal 1, OT) gfz-pv-tmilq/gbhta-sq-thh;dpw-jb-gcwtv/vjtcn-dl-csw;toilet;walker, rolling - [place] Level/Cues Needed (Transfer Goal 1, OT) contact guard required - Time Frame (Transfer Goal 1, OT) intermediate goal (LTG);10 days - Progress/Outcome (Transfer Goal 1, OT) goal ongoing - Row Name 08/08/25 1054 Dressing Goal 1 (OT) Activity/Device (Dressing Goal 1, OT) lower body dressing - [place]/Cues Needed (Dressing Goal 1, OT) standby assist - Time Frame (Dressing Goal 1, OT) short term goal (STG);5 days - Progress/Outcome (Dressing Goal 1, OT) goal ongoing - Row Name 08/08/25 1056 Toileting Goal 1 (OT) Activity/Device (Toileting Goal 1, OT) adjust/manage clothing;perform perineal hygiene;commode;grabbar/safety frame - [place] Level/Cues Needed (Toileting Goal 1, OT) standby assist - Time Frame (Toileting Goal 1, OT) terminal operations manager goal (LTG);10 days - Progress/Outcome (Toileting Goal 1, OT) goal ongoing - Row Name 08/08/25 1059 Therapy Assessment/Plan (OT) Planned Therapy Interventions (OT) activity tolerance training;adaptive equipment training;BADL retraining;functional balance retraining;occupation/activity based interventions;patient/caregiver educa tion/training;strengthening exercise;transfer/mobility retraining;ROM/therapeutic exercise - User Benedict (r) = Recorded By, (t) = Taken By, (c) = Cosigned By Initials Name Provider Type Ileana Ron OT Occupational Therapist Clinical Impression Row Name 08/08/25 1056 Pain Assessment Pretreatment Pain Rating 0/10 - no pain - Posttreatment Pain Rating 0/10 - no pain -LC Row Name 08/08/25 1056 Plan of Care Review Plan of Care Reviewed With patient -LC Progress no change - Outcome Evaluation Pt. presents below baseline with with ADLs and functional mobility. Limited by decreased activity tolerance, generalized weakness, and balance. Skilled OT services warranted to promote return to PLOF. Recommend home with / assist and OP therapy. - Row Name 08/08/25 1056 Therapy Assessment/Plan (OT) Patient/Family Therapy Goal Statement (OT) To take care of self -LC Therapy Frequency (OT) daily - Predicted Duration of Therapy Intervention (OT) 4 days - Row Name 08/08/25 1056 Vital Signs Pre Systolic BP Rehab 133 -LC Pre Treatment Diastolic BP 96 -LC Intra Systolic BP Rehab 152 -LC Intra Treatment Diastolic BP 104 -LC Post Systolic BP Rehab 135 -LC Post Treatment Diastolic BP 101 -LC Pre Patient Position Supine -LC Intra Patient Position Sitting -LC Post Patient Position Sitting - Row Name 08/08/25 1056 Positioning and Restraints Pre-Treatment Position in bed -LC Post Treatment Position chair -LC In Chair notified nsg;reclined;call light within reach;encouraged to call for assist;exit alarm on;waffle cushion;legs elevated;with nsg - User Benedict (r) = Recorded By, (t) = Taken By, (c) = Cosigned By Initials Name Provider Type Ileana Ron OT Occupational Therapist Outcome Measures Row Name 08/08/25 1100 How much help from another is currently needed... Putting on and taking off regular lower body clothing? 3 -LC Bathing (including washing, rinsing, and drying) 3 -LC Toileting (which includes using toilet bed martinez or urinal) 3 -LC Putting on and taking off regular upper body clothing 3 -LC Taking care of personal grooming (such as brushing teeth) 3 -LC Eating meals 4 -LC AM-PAC 6 Clicks Score (OT) 19 -LC Row Name 08/08/25 0829 How much help from another person do you currently need... Turning from your back to your side while in flat bed without using bedrails? 4 -MG Moving from lying on back to sitting on the side of a flat bed without bedrails? 4 -MG Moving to and from a bed to a chair (including a wheelchair)? 4 -MG Standing up from a chair using your arms (e.g., wheelchair, bedside chair)? 4 -MG Climbing 3-5 steps with a railing? 4 -MG To walk in hospital room? 3 -MG AM-PAC 6 Clicks Score (PT) 23 -MG Row Name 08/08/25 1100 08/08/25 0803 Modified [place] Scale Pre-Stroke Modified [place] Scale 6 - Unable to determine (UTD) from the medical record documentation -LC -- Modified [place] Scale 3 - Moderate disability. Requiring some help, but able to walk without assistance. - 0 - No Symptoms at all. 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 (In Progress) Topic: Occupational Therapy (In Progress) Point: ADL training (In Progress) Learning Progress Summary Patient Acceptance, E, NR by at 08/08/2025 1008 Point: Precautions (In Progress) Learning Progress Summary Patient Acceptance, E, NR by at 08/08/2025 1008 Point: Body mechanics (In Progress) Learning Progress Summary Patient Acceptance, E, NR by at 08/08/2025 1008 User Benedict Initials Effective Dates Name Provider Type [facility] 04/09/21 - Joseph, Ileana, OT Occupational Therapist OT OT Recommendation and Plan Recommended discharge disposition is based on the functional assessment performed by PT/OT/Speech therapy (as applicable) and may not reflect the medical necessity determined by your provider or services covered by an individual patient's insurance plan or patient resource. Planned Therapy Interventions (OT): activity tolerance training, adaptive equipment training, BADL retraining, functional balance retraining, occupation/activity based interventions, patient/caregiver education/training, strengthening exercise, transfer/mobility retraining, ROM/therapeutic exercise Therapy Frequency (OT): daily Plan of Care Review Plan of Care Reviewed With: patient Progress: no change Outcome Evaluation: Pt. presents below baseline with with ADLs and functional mobility. Limited by decreased activity tolerance, generalized weakness, and balance. Skilled OT services warranted to promote return to PLOF. Recommend home with 17/05 assist and OP therapy. Time Calculation: Evaluation Complexity (OT) Review Occupational Profile/Medical/Therapy History Complexity: brief/low complexity Assessment, Occupational Performance/Identification of Deficit Complexity: 1-3 performance deficits Clinical Decision Making Complexity (OT): problem focused assessment/low complexity Overall Complexity of Evaluation (OT): low complexity Time Calculation- OT Row Name 08/08/25 1101 Time Calculation- OT OT Start Time 1008 -LC OT Received On 08/08/25 -LC OT Goal Re-Cert Due Date 08/18/25 -LC Untimed Charges OT Eval/Re-eval Minutes 62 -LC Total Minutes Untimed Charges Total Minutes 62 -LC Total Minutes 62 -LC User Benedict (r) = Recorded By, (t) = Taken By, (c) = Cosigned By Initials Name Provider Type LC Ileana Ruiz OT Occupational Therapist Therapy Charges for Today Code Description Service Date Service Provider Modifiers Qty [id number] -OT EVAL LOW COMPLEXITY 5 08/08/2025 Ileana Ruiz OT 1 Ileana Ruiz OT 08/08/2025 [1] Patient Active Problem List Diagnosis Dizziness * Therapy Evaluation - Julieta Reese, PT - 08/08/2025 10:07 AM EDT Images from the original note were not included. Patient Name: Darci Conti Andres : 1980 Today's Date: 08/08/2025 Admit Date: 08/08/2025 Visit Dx: No diagnosis found. Problem List[1] History reviewed. No pertinent past medical history. History reviewed. No pertinent surgical history. General Information Row Name 08/08/25 1146 Physical Therapy Time and Intention Document Type evaluation -AB Mode of Treatment physical therapy;co-treatment -AB Row Name 08/08/25 1146 General Information Patient Profile Reviewed yes -AB Prior Level of Function independent:;all household mobility;community mobility;gait;transfer;bed mobility;ADL's CG for his 9 yo olga. -AB Existing Precautions/Restrictions fall;other (see comments) dizziness w/ mobility -AB Barriers to Rehab medically complex -AB Row Name 08/08/25 1146 Living Environment Current Living Arrangements home -AB People in Home grandchild(artie);spouse -AB Row Name 08/08/25 1146 Home Main Entrance Number of Stairs, Main Entrance other (see comments) ramp -AB Row Name 08/08/25 1146 Stairs Within Home, Primary Stairs, Within Home, Primary all needs met on main level -AB Row Name 08/08/25 1146 Cognition Orientation Status (Cognition) oriented x 4 -AB Row Name 08/08/25 1146 Safety Issues/Impairments Affecting Functional Mobility Safety Issues Affecting Function (Mobility) insight into deficits/self- awareness;awareness of need for assistance;safety precaution awareness;safety precautions follow-through/compliance;sequencing abilities -AB Impairments Affecting Function (Mobility) balance;coordination;strength;endurance/activity tolerance -AB User Benedict (r) = Recorded By, (t) = Taken By, (c) = Cosigned By Initials Name Provider Type AB Julieta Reese PT Physical Therapist Mobility Row Name 08/08/25 1147 Bed Mobility Bed Mobility scooting/bridging;supine-sit -AB Scooting/Bridging [place] (Bed Mobility) contact guard;verbal cues -AB Supine-Sit [place] (Bed Mobility) contact guard;verbal cues -AB Assistive Device (Bed Mobility) bed rails -AB Comment, (Bed Mobility) No nystagmus seen w/ transition to sitting. -AB Row Name 08/08/25 1147 Transfers Comment, (Transfers) Cues for hand placement and sequencing. Pt reports feeling like he is on a boat with all standing mobility. -AB Row Name 08/08/25 1147 Sit-Stand Transfer Sit-Stand [place] (Transfers) minimum assist (75% patient effort);verbal cues;2 person assist -AB Assistive Device (Sit-Stand Transfers) other (see comments) STEAM STATION SUPERVISOR -AB Row Name 08/08/25 1147 Gait/Stairs (Locomotion) [place] Level (Gait) minimum assist (75% patient effort);2 person assist;verbal cues -AB Assistive Device (Gait) other (see comments) STEAM STATION SUPERVISOR -AB Patient was able to Ambulate yes -AB Distance in Feet (Gait) 100 +100 -AB Deviations/Abnormal Patterns (Gait) bilateral deviations;base of support, narrow;efe decreased;gait speed decreased;stride length decreased -AB Bilateral Gait Deviations heel strike decreased -AB [place] Level (Stairs) unable to assess -AB Comment, (Gait/Stairs) Pt ataxic with gait and required min A to steady although pt with good effort to self correct. Improved stability noted with RW use. No overt LOB. Further activity limited by instability. -AB User Benedict (r) = Recorded By, (t) = Taken By, (c) = Cosigned By Initials Name Provider Type AB Julieta Reese, PT Physical Therapist Obj/Interventions Row Name 08/08/25 1150 Range of Motion Comprehensive General Range of Motion bilateral lower extremity ROM WNL -AB Row Name 08/08/25 1150 Strength Comprehensive (MMT) General Manual Muscle Testing (MMT) Assessment lower extremity strength deficits identified -AB Comment, General Manual Muscle Testing (MMT) Assessment BLE grossly 4/5 -AB Row Name 08/08/25 1150 Motor Skills Motor Skills coordination -AB Coordination bilateral;lower extremity;heel to law;WNL;ataxia;moderate impairment -AB Row Name 08/08/25 1150 Balance Balance Assessment sitting static balance;sitting dynamic balance;standing static balance;standing dynamic balance -AB Static Sitting Balance standby assist -AB Dynamic Sitting Balance standby assist -AB Position, Sitting Balance unsupported;sitting edge of bed -AB Static Standing Balance contact guard -AB Dynamic Standing Balance minimal assist;2-person assist;verbal cues -AB Position/Device Used, Standing Balance supported -AB Balance Interventions sitting;standing;sit to stand;supported;static;dynamic;occupation based/functional task -AB Comment, Balance unsteady w/o overt LOB. -AB Row Name 08/08/25 1150 Sensory Assessment (Somatosensory) Sensory Assessment (Somatosensory) LE sensation intact -AB User Benedict (r) = Recorded By, (t) = Taken By, (c) = Cosigned By Initials Name Provider Type AB Julieta Reese, PT Physical Therapist Goals/Plan Row Name 08/08/25 1154 Bed Mobility Goal 1 (PT) Activity/Assistive Device (Bed Mobility Goal 1, PT) sit to supine;supine to sit -AB [place] Level/Cues Needed (Bed Mobility Goal 1, PT) independent -AB Time Frame (Bed Mobility Goal 1, PT) short term goal (STG);5 days -AB Row Name 08/08/25 115 Transfer Goal 1 (PT) Activity/Assistive Device (Transfer Goal 1, PT) izv-wr-sxend/uwues-qz-eda;dqi-uh-vwzts/qdchy-yx-ava;walker, rolling -AB [place] Level/Cues Needed (Transfer Goal 1, PT) standby assist -AB Time Frame (Transfer Goal 1, PT) intermediate goal (LTG);10 days -AB Row Name 08/08/25 115 Gait Training Goal 1 (PT) Activity/Assistive Device (Gait Training Goal 1, PT) gait (walking locomotion);assistive device use;walker, rolling -AB [place] Level (Gait Training Goal 1, PT) standby assist -AB Distance (Gait Training Goal 1, PT) 350 -AB Time Frame (Gait Training Goal 1, PT) intermediate goal (LTG);10 days -AB Row Name 08/08/25 115 Therapy Assessment/Plan (PT) Planned Therapy Interventions (PT) balance training;bed mobility training;gait training;home exercise program;patient/family education;postural re- education;ROM (range of motion);strengthening;stretching;neuromuscular re- education;motor coordination training -AB User Benedict (r) = Recorded By, (t) = Taken By, (c) = Cosigned By Initials Name Provider Type Julieta Lora, PT Physical Therapist Clinical Impression Row Name 08/08/25 1151 Pain Pretreatment Pain Rating 0/10 - no pain -AB Posttreatment Pain Rating 0/10 - no pain -AB Row Name 08/08/25 1151 Plan of Care Review Plan of Care Reviewed With patient -AB Progress no change -AB Outcome Evaluation PT initial eval completed. Pt presents below baseline with instability during gait. He ambulated in hallway with min Ax2 and UE support. Pt would benefit from IPPT for addressing deficits related to endurance, balance, and coordination. Rec d/c home with 24/7 assist, RW, and OPPT. -AB Row Name 08/08/25 1151 Therapy Assessment/Plan (PT) Rehab Potential (PT) good -AB Criteria for Skilled Interventions Met (PT) yes;meets criteria;skilled treatment is necessary -AB Therapy Frequency (PT) daily -AB Predicted Duration of Therapy Intervention (PT) 10 days -AB Row Name 08/08/25 1151 Vital Signs Pre Systolic BP Rehab 133 -AB Pre Treatment Diastolic BP 96 -AB Post Systolic BP Rehab 152 -AB Post Treatment Diastolic BP 104 -AB O2 Delivery Pre Treatment room air -AB O2 Delivery Intra Treatment room air -AB O2 Delivery Post Treatment room air -AB Pre Patient Position Supine -AB Intra Patient Position Standing -AB Post Patient Position Sitting -AB Row Name 08/08/25 1151 Positioning and Restraints Pre-Treatment Position in bed -AB Post Treatment Position chair -AB In Chair notified nsg;reclined;sitting;call light within reach;encouraged to call for assist;exit alarm on;legs elevated;waffle cushion;with other staff -AB User Benedict (r) = Recorded By, (t) = Taken By, (c) = Cosigned By Initials Name Provider Type AB Julieta Reese, PT Physical Therapist Outcome Measures Row Name 08/08/25 1154 08/08/25 0829 How much help from another person do you currently need... Turning from your back to your side while in flat bed without using bedrails? 4 -AB 4 -MG Moving from lying on back to sitting on the side of a flat bed without bedrails? 3 -AB 4 -MG Moving to and from a bed to a chair (including a wheelchair)? 3 -AB 4 -MG Standing up from a chair using your arms (e.g., wheelchair, bedside chair)? 3 - AB 4 -MG Climbing 3-5 steps with a railing? 3 -AB 4 -MG To walk in hospital room? 3 -AB 3 -MG AM-PAC 6 Clicks Score (PT) 19 -AB 23 -MG Highest Level of Mobility Goal Walk 10 Steps or More-6 -AB Walk 25 Feet or More- 7 -MG Row Name 08/08/25 1154 08/08/25 1100 Modified [place] Scale Pre-Stroke Modified [place] Scale 6 - Unable to determine (UTD) from the medical record documentation -AB 6 - Unable to determine (UTD) from the medical record documentation -LC Modified [place] Scale 3 - Moderate disability. Requiring some help, but able to walk without assistance. -AB 3 - Moderate disability. Requiring some help, but able to walk without assistance. -LC Row Name 08/08/25 0803 Modified [place] Scale Modified [place] Scale 0 - No Symptoms at all. 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 Point: Body mechanics (Done) Learning Progress Summary Patient Acceptance, E,D, VU,NR by at 08/08/2025 1154 Point: Precautions (Done) Learning Progress Summary Patient Acceptance, E,D, VU,NR by at 08/08/2025 1154 User Benedict Initials Effective Dates Name Provider Type Discipline 07/16/22 - Julieta Reese, PT Physical Therapist PT PT Recommendation and Plan Recommended discharge disposition is based on the functional assessment performed by PT/OT/Speech therapy (as applicable) and may not reflect the medical necessity determined by your provider or services covered by an individual patient's insurance plan or patient resource. Planned Therapy Interventions (PT): balance training, bed mobility training, gait training, home exercise program, patient/family education, postural re- education, ROM (range of motion), strengthening, stretching, neuromuscular re- education, motor coordination training Therapy Frequency (PT): daily Progress: no change Outcome Evaluation: PT initial eval completed. Pt presents below baseline with instability during gait. He ambulated in hallway with min Ax2 and UE support. Pt would benefit from IPPT for addressing deficits related to endurance, balance, and coordination. Rec d/c home with 24/7 assist, RW, and OPPT. Time Calculation: PT Evaluation Complexity History, PT Evaluation Complexity: 1-2 personal factors and/or comorbidities Examination of Body Systems (PT Eval Complexity): total of 3 or more elements Clinical Presentation (PT Evaluation Complexity): stable Clinical Decision Making (PT Evaluation Complexity): low complexity Overall Complexity (PT Evaluation Complexity): low complexity PT Charges Row Name 08/08/25 1155 Time Calculation Start Time 1007 -AB PT Received On 08/08/25 -AB PT Goal Re-Cert Due Date 08/18/25 -AB Untimed Charges PT Eval/Re-eval Minutes 55 -AB Total Minutes Untimed Charges Total Minutes 55 -AB Total Minutes 55 -AB User Benedict (r) = Recorded By, (t) = Taken By, (c) = Cosigned By Initials Name Provider Type AB Julieta Reese, PT Physical Therapist Therapy Charges for Today Code Description Service Date Service Provider Modifiers Qty [id number] PT EVAL LOW COMPLEXITY 4 08/08/2025 Julieta Reese, PT GP 1 PT G-Codes Outcome Measure Options: AM-PAC 6 Clicks Basic Mobility (PT) AM-PAC 6 Clicks Score (PT): 19 AM-PAC 6 Clicks Score (OT): 19 Modified Deanna Scale: 3 - Moderate disability. Requiring some help, but able to walk without assistance. PT Discharge Summary Anticipated Discharge Disposition (PT): home with 24/7 care, home with outpatient therapy services Julieta Reese PT 08/08/2025 [1] Patient Active Problem List Diagnosis Dizziness documented in this encounter Plan of Treatment Upcoming Encounters Date Type Department Care Team (Late st Contact Info) Description 08/14/2025 10:15 AM EDT Office Visit [facility] [address] [place] [address] [place] [phone] Pratik Salguero MD [address] [place] [address] Scheduled Referrals Name Type Priority Associated Diagnoses Order Schedule Ambulatory Referral to Physical Therapy for Evaluation & Treatment Outpatient Referral Routine Benign paroxysmal positional vertigo due to bilateral vestibular disorder Ordered: 08/09/2025 documented as of this encounter Procedures Procedure Name Priority Date/Time Associated Diagnosis Comments ECHO COMPLETE W/ DOPPLER AND COLOR FLOW Routine 08/09/2025 1:21 PM EDT MRI BRAIN WO CONTRAST Routine 08/08/2025 4:54 PM EDT URINE DRUG SCREEN Routine 08/08/2025 8:5 8 AM EDT FENTANYL, URINE Routine 08/08/2025 8:[address] OUTSIDE NECK Routine 08/08/2025 8:56 AM EDT CBC WITH AUTO DIFFERENTIAL Routine 08/08/2025 7:36 AM EDT CBC AND DIFFERENTIAL Routine 08/08/2025 7:36 AM EDT TSH Routine 08/08/2025 7:36 AM EDT HEMOGLOBIN A1C Routine 08/08/2025 7:36 AM EDT LIPID PANEL Urgent 08/08/2025 7:36 AM EDT COMPREHENSIVE METABOLIC PANEL Routine 08/08/2025 7:[address] OUTSIDE HEAD Routine 08/07/2025 12:[address] OUTSIDE HEAD Routine 08/07/2025 12:[address] OUTSIDE CHEST Routine 08/07/2025 12:0 0 AM EDT documented in this encounter Results * ECHO COMPLETE W/ DOPPLER AND COLOR FLOW (08/09/2025 1:21 PM EDT) EF(MOD-bp) 62.0 % LVIDd 4.2 cm LVIDs 2.9 cm IVSd 1.00 cm LVPWd 1.00 cm FS 31.0 % IVS/LVPW 1.00 cm ESV(cubed) 24.4 ml LV Sys Vol (BSA corrected) 22.4 cm2 EDV(cubed) 74.1 ml LV Calixto Vol (BSA corrected) 64.5 cm2 LV mass(C)d 137.2 grams LVOT area 3.1 cm2 LVOT diam 2.00 cm EDV(MOD-sp2) 95.0 ml EDV(MOD-sp4) 125.0 ml ESV(MOD-sp2) 33.9 ml ESV(MOD-sp4) 43.5 ml SV(MOD-sp2) 61.1 ml SV(MOD-sp4) 81.5 ml SVi(MOD-SP2) 31.5 ml/m2 SVi(MOD-SP4) 42.1 ml/m2 SVi (LVOT) 32.5 ml/m2 EF(MOD-sp2) 64.3 % EF(MOD-sp4) 65.2 % MV E max chino 64.5 cm/sec MV A max chino 58.7 cm/sec MV dec time 0.20 sec MV E/A 1.10 IVRT 127.0 ms LA ESV Index (BP) 14.3 ml/m2 Med Peak E' [place] 7.7 cm/sec Lat Peak E' [place] 14.6 cm/sec Avg E/e' ratio 5.78 SV(LVOT) 63.0 ml RV Base 3.7 cm RV Mid 3.1 cm RV Length 8.1 cm TAPSE (>1.6) 2.06 cm RV S' 15.4 cm/sec LA dimension (2D) 4.0 cm LV V1 max 104.4 cm/sec LV V1 max PG 4.4 mmHg LV V1 mean PG 2.00 mmHg LV V1 VTI 20.1 cm Ao pk chino 115.3 cm/sec Ao max PG 5.3 mmHg Ao mean PG 2.8 mmHg Ao V2 VTI 22.4 cm PREETI(I,D) 2.8 cm2 Dimensionless Index 0.89 (DI) MV max PG 2.40 mmHg MV mean PG 1.00 mmHg MV V2 VTI 23.2 cm MV P1/2t 54.7 msec MVA(P1/2t) 4.0 cm2 MVA(VTI) 2.7 cm2 MV dec slope 422.0 cm/sec2 PA V2 max 111.5 cm/sec PA acc time 0.13 sec Ao root diam 3.1 cm BH CV ECHO SHUNT ASSESSMENT PERFORMED (HIDDEN SCRIPTING) 1 Ao root area (BSA corrected) 1.6 cm2 Ascending aorta 3.0 cm BH CV VAS BP LEFT ARM 145/99 mmHg Anatomical Region Laterality Modality Ultrasound Narrative 08/09/2025 5:21 PM EDT Left ventricular systolic function is normal. Left ventricular ejection fraction appears to be 61 - 65%. Saline test results are negative in the limited views obtained. Left Ventricle Left ventricular systolic function is normal. Left ventricular ejection fraction appears to be 61 - 65%. Normal left ventricular cavity size and wall thickness noted. Left ventricular diastolic function was normal. Right Ventricle Normal right ventricular cavity size and systolic function noted. Left Atrium Left atrial volume is normal. Saline test results are negative. Right Atrium Normal right atrial cavity size noted. Inferior vena cava not well visualized. Mitral Valve The mitral valve is structurally normal with no significant stenosis present. Trace mitral valve regurgitation is present. Tricuspid Valve The tricuspid valve is structurally normal with no significant regurgitation or stenosis present. Insufficient TR velocity profile to estimate the right ventricular systolic pressure. Aortic Valve The aortic valve is structurally normal with no regurgitation or stenosis present. The aortic valve appears trileaflet. Pulmonic Valve The pulmonic valve is structurally normal with no significant stenosis present. There is no significant pulmonic valve regurgitation present. Pericardium The pericardium is normal. There is no evidence of pericardial effusion. . Greater Vessels No dilation of the aortic root is present. Aortic root = 3.1 cm Aortic root (corrected for BSA) = 1.6 cm No dilation of the sinuses of Valsalva is present. No dilation of the ascending aorta is present. Ascending aorta = 3.0 cm There is no plaque in the ascending aorta present. Inferior vena cava not well visualized. Shunt Assessment Verbal consent was obtained from the patient for use of agitated saline to assess for shunting. A total of 20 mL of agitated saline was administered. us Bianca Banegas ACTUARIAL TECHNICIAN CV ECHO ORDERABLES Final Res ult * MRI Brain Without Contrast (08/08/2025 4:54 PM EDT) Anatomical Region Laterality Modality Head, Neck N/A Magnetic Resonan ce 08/08/2025 5:00 PM EDT Impressions 08/08/2025 5:06 PM EDT Impression: No acute intracranial finding. Electronically Signed: Lorenzo Saravia MD 08/08/2025 5:06 PM EDT Workstation ID: [id number] Narrative 08/08/2025 5:06 PM EDT MRI BRAIN WO CONTRAST Date of Exam: 08/08/2025 4:37 PM EDT Indication: Stroke, follow up Dizziness, ataxic gait. Comparison: Head CT 08/07/2025 Technique: Routine multiplanar/multisequence sequence images of the brain were obtained without contrast administration. Findings: No acute midline shift, extra axial fluid collection, hydrocephalus, or infarct. No subacute to old hemorrhage. Brain volume appears age appropriate. Appropriate flow voids at the skull base and in the major venous sinuses. Mild mucosal changes in the paranasal sinuses. Mastoid air cells are essentially clear. Visualized globes and orbits appear unremarkable by MRI. No acute or aggressive appearing osseous or extracranial soft tissue process. Procedure Note Lorenzo Saravia MD - 08/08/2025 MRI BRAIN WO CONTRAST Date of Exam: 08/08/2025 4:37 PM EDT Indication: Stroke, follow up Dizziness, ataxic gait. Comparison: Head CT 08/07/2025 Technique: Routine multiplanar/multisequence sequence images of the brainwere obtained without contrast administration. Findings: No acute midline shift, extra axial fluid collection, hydrocephalus, orinfarct. No subacute to old hemorrhage. Brain volume appears age appropriate. Appropriate flow voids at the skull base and in the major venoussinuses. Mild mucosal changes in the paranasal sinuses. Mastoid air cells areessentially clear. Visualized globes and orbits appear unremarkable by MRI. No acute or aggressive appearing osseous or extracranial soft tissueprocess. IMPRESSION: Impression: No acute intracranial finding. Electronically Signed: Lorenzo Saravia MD 08/08/2025 5:06 PM EDT Workstation ID: [id number] Bianca Banegas ACTUARIAL TECHNICIAN IMG MRI ORDERABLES Final Res ult * Fentanyl, Urine - Urine, Clean Catch (08/08/2025 8:58 AM EDT) Fentanyl, Urine Negative Negative 08/08/2025 10:12 AM EDT [facility] Urine Urine specimen obtained by clean catch procedure / Unknown Collection / Unknown 08/08/2025 8:58 AM EDT 08/08/2025 9:07 AM EDT [facility] - 08/08/2025 10:12 AM EDT Negative Threshold: Fentanyl 5 ng/mL The normal value for the drug tested is negative. This report includes final unconfirmed screening results to be used for medical treatment purposes only. Unconfirmed results must not be used for non-medical purposes such as employment or legal testing. Clinical consideration should be applied to any drug of abuse test, particularly when unconfirmed results are used. Jackie Ndiaye MD URINE ORDERABLES Final Result [facility]
[address] [place] [address], * (ABNORMAL) Urine Drug Screen - Urine, Clean Catch (08/08/2025 8:58 AM EDT) THC, Screen, Urine Negative Negative 2024 9:19 AM EDT [facility] Phencyclidine (PCP), Urine Negative Negative 08/08/2025 9:19 AM EDT [facility] Cocaine Screen, Urine Negative Negative 08/08/2025 9:19 AM EDT [facility] Methamphetamine, Ur Negative Negative 08/08/2025 9:19 AM EDT [facility] Opiate Screen Negative Negative 08/08/2025 9:19 AM EDT [facility] Amphetamine Screen, Urine Negative Negative 08/08/2025 9:19 AM EDT [facility] Benzodiazepine Screen, Urine Positive(A) Negative 08/08/2025 9:19 AM EDT [facility] [facility] Tricyclic Antidepressants Screen Negative Negative 08/08/2025 9:19 AM EDT [facility] Methadone Screen, Urine Negative Negative 08/08/2025 9:19 AM EDT [facility] Barbiturates Screen, Urine Negative Negative 08/08/2025 9:19 AM EDT [facility] Oxycodone Screen, Urine Negative Negative 08/08/2025 9:19 AM EDT [facility] Buprenorphine, Screen, Urine Negative Negative 08/08/2025 9:19 AM EDT [facility] Urine Urine specimen obtained by clean catch procedure / Unknown Collection / Unknown 08/08/2025 8:58 AM EDT 08/08/2025 9:07 AM EDT [facility] LABORATORY - 08/08/2025 9:19 AM EDT Cutoff For Drugs Screened: Amphetamines 500 ng/ml Barbiturates 200 ng/ml Benzodiazepines 150 ng/ml Cocaine 150 ng/ml Methadone 200 ng/ml Opiates 100 ng/ml Phencyclidine 25 ng/ml THC 50 ng/ml Methamphetamine 500 ng/ml Tricyclic Antidepressants 300 ng/ml Oxycodone 100 ng/ml Buprenorphine 10 ng/ml The normal value for all drugs tested is negative. This report includes unconfirmed screening results, with the cutoff values listed, to be used for medical treatment purposes only. Unconfirmed results must not be used for non-medical purposes such as employment or legal testing. Clinical consideration should be applied to any drug of abuse test, particularly when unconfirmed results are used. Jackie Ndiaye MD URINE ORDERABLES Final Result [facility]
[address] [place] [address], * CT Outside Neck (08/08/2025 8:56 AM EDT) Narrative SYSTEMGENERATED, DOCUMENTATION - 08/08/2025 8:56 AM EDT This procedure was auto-finalized with no dictation required. us [employer] Outside Films IMG CT ORDERABLES Final Re sult * CBC Auto Differential (08/08/2025 7:36 AM EDT) WBC 5.70 3.40 - 10.80 10*3/mm3 08/08/2025 8:01 AM EDT [facility] RBC 5.24 4.14 - 5.80 10*6/mm3 08/08/2025 8:01 AM EDT [facility] Hemoglobin 15.1 13.0 - 17.7 g/dL 08/08/2025 8:01 AM EDT [facility] Hematocrit 45.6 37.5 - 51.0 % 08/08/2025 8:01 AM EDT [facility] MCV 87.0 79.0 - 97.0 fL 08/08/2025 8:01 AM EDT [facility] MCH 28.8 26.6 - 33.0 pg 08/08/2025 8:01 AM EDT [facility] MCHC 33.1 31.5 - 35.7 g/dL 08/08/2025 8:01 AM EDT [facility] RDW 13.0 12.3 - 15.4 % 08/08/2025 8:01 AM EDT [facility] RDW-SD 40.9 37.0 - 54.0 fl 08/08/2025 8:01 AM EDT [facility] MPV 10.0 6.0 - 12.0 fL 08/08/2025 8:01 AM EDT [facility] Platelets 220 140 - 450 10*3/mm3 08/08/2025 8:01 AM EDT [facility] Neutrophil % 57.2 42.7 - 76.0 % 08/08/2025 8:01 AM EDT [facility] Lymphocyte % 30.2 19.6 - 45.3 % 08/08/2025 8:01 AM EDT [facility] Monocyte % 9.8 5.0 - 12.0 % 08/08/2025 8:01 AM EDT [facility] Eosinophil % 1.9 0.3 - 6.2 % 08/08/2025 8:01 AM EDT [facility] Basophil % 0.7 0.0 - 1.5 % 08/08/2025 8:01 AM EDT [facility] Immature Grans % 0.2 0.0 - 0.5 % 08/08/2025 8:01 AM EDT [facility] Neutrophils, Absolute 3.26 1.70 - 7.00 10*3/mm3 08/08/2025 8:01 AM EDT [facility] Lymphocytes, Absolute 1.72 0.70 - 3.10 10*3/mm3 08/08/2025 8:01 AM EDT [facility] Monocytes, Absolute 0.56 0.10 - 0.90 10*3/mm3 08/08/2025 8:01 AM EDT [facility] Eosinophils, Absolute 0.11 0.00 - 0.40 10*3/mm3 08/08/2025 8:01 AM EDT [facility] Basophils, Absolute 0.04 0.00 - 0.20 10*3/mm3 08/08/2025 8:01 AM EDT [facility] Immature Grans, Absolute 0.01 0.00 - 0.05 10*3/mm3 08/08/2025 8:01 AM EDT [facility] nRBC 0.0 0.0 - 0.2 /100 WBC 08/08/2025 8:01 AM T [facility] Blood Venipuncture / Unknown 08/08/2025 7:36 AM EDT 08/08/2025 7:52 AM EDT us Jackie Ndiaye MD LAB BLOOD ORDERABLES Final Resul t [facility]
[address] [place] [address], * TSH (08/08/2025 7:36 AM EDT) Pathologist [facility] TSH 1.880 0.270 - 4.200 uIU/mL 08/08/2025 8:42 AM EDT [facility] Blood Venipuncture / Unknown 08/08/2025 7:36 AM EDT 08/08/2025 7:52 AM EDT Jackie Ndiaye MD LAB BLOOD ORDERABLES Final Resul t [facility]
[address] [place] [address], * Comprehensive Metabolic Panel (08/08/2025 7:36 AM EDT) Pathologist [facility] Glucose 93 65 - 99 mg/dL 08/08/2025 8:42 AM EDT [facility] BUN 10.4 6.0 - 20.0 mg/dL 08/08/2025 8:42 AM EDT [facility] Creatinine 0.98 0.76 - 1.27 mg/dL 08/08/2025 8:42 AM EDT [facility] Sodium 141 136 - 145 mmol/L 08/08/2025 8:42 AM EDT [facility] Potassium 4.4 3.5 - 5.2 mmol/L 08/08/2025 8:42 AM EDT [facility] Chloride 104 98 - 107 mmol/L 08/08/2025 8:42 AM EDT [facility] CO2 27.2 22.0 - 29.0 mmol/L 08/08/2025 8:42 AM EDT [facility] Calcium 9.3 8.6 - 10.5 mg/dL 08/08/2025 8:42 AM EDT [facility] Total Protein 6.9 6.0 - 8.5 g/dL 08/08/2025 8:42 AM [facility] Albumin 4.3 3.5 - 5.2 g/dL 08/08/2025 8:42 AM [facility] ALT (SGPT) 26 1 - 41 U/L 08/08/2025 8:42 AM [facility] AST (SGOT) 24 1 - 40 U/L 08/08/2025 8:42 AM [facility] Alkaline Phosphatase 47 39 - 117 U/L 08/08/2025 8:42 AM [facility] Total Bilirubin 0.8 0.0 - 1.2 mg/dL 08/08/2025 8:42 AM [facility] Globulin 2.6 gm/dL 08/08/2025 8:42 AM [facility] Comment:Calculated Result A/G Ratio 1.7 g/dL 08/08/2025 8:42 AM [facility] BUN/Creatinine Ratio 10.6 7.0 - 25.0 08/08/2025 8:42 AM [facility] Anion Gap 9.8 5.0 - 15.0 mmol/L 08/08/2025 8:42 AM [facility] eGFR 95.7 >60.0 mL/min/1.7 3 08/08/2025 8:42 AM [facility] Blood Venipuncture / Unknown 08/08/2025 7:36 AM EDT 08/08/2025 7:52 AM [facility] LABORATORY - 08/08/2025 8:42 AM EDT GFR Categories in Chronic Kidney Disease (CKD) GFR Category GFR (mL/min/1.73) Interpretation G1 90 or greater Normal or high (1) G2 60-89 Mild decrease (1) G3a 45-59 Mild to moderate decrease G3b 30-44 Moderate to severe decrease G4 15-29 Severe decrease G5 14 or less Kidney failure (1)In the absence of evidence of kidney disease, neither GFR category G1 or G2 fulfill the criteria for CKD. eGFR calculation 2020 CKD-EPI creatinine equation, which does not include race as a factor us Jackie Ndiaye MD LAB BLOOD ORDERABLES Final Resul t [facility]
[address] [place] [address], * (ABNORMAL) Lipid Panel (08/08/2025 7:36 AM EDT) Total Cholesterol 184 0 - 200 mg/dL 08/08/2025 8:42 AM EDT [facility] Triglycerides 87 0 - 150 mg/dL 08/08/2025 8:42 AM EDT [facility] HDL Cholesterol 42 40 - 60 mg/dL 08/08/2025 8:42 AM EDT [facility] LDL Cholesterol 126(H) 0 - 100 mg/dL 08/08/2025 8:42 AM EDT [facility] VLDL Cholesterol 16 5 - 40 mg/dL 08/08/2025 8:42 AM EDT [facility] LDL/HDL Ratio 2.97 08/08/2025 8:42 AM EDT [facility] Blood Venipuncture / Unknown 08/08/2025 7:36 AM EDT 08/08/2025 7:52 AM EDT Narrative [facility] - 08/08/2025 8:42 AM EDT Cholesterol Reference Ranges (U.S. Department of Health and Human Services ATP III Classifications) Desirable <200 mg/dL Borderline High 200-239 mg/dL High Risk >240 mg/dL Triglyceride Reference Ranges (U.S. Department of Health and Human Services ATP III Classifications) Normal <150 mg/dL Borderline High 150-199 mg/dL High 200-499 mg/dL Very High >500 mg/dL HDL Reference Ranges (U.S. Department of Health and Human Services ATP III Classifications) Low <40 mg/dl (major risk factor for CHD) High >60 mg/dl ('negative' risk factor for CHD) LDL Reference Ranges (U.S. Department of Health and Human Services ATP III Classifications) Optimal <100 mg/dL Near Optimal 100-129 mg/dL Borderline High 130-159 mg/dL High 160-189 mg/dL Very High >189 mg/dL LDL is calculated using the NIH LDL-C calculation. Bianca Ramiro Makenzie ACTUARIAL TECHNICIAN LAB BLOOD ORDERABLES Final R esult Performing Organization Address [facility] Co de Phone Number [facility]
[address] [place] [address], [place] [phone] * Hemoglobin A1c (08/08/2025 7:36 AM EDT) Pathologist [facility] Hemoglobin A1C 5.53 4.80 - 5.60 % 08/08/2025 8:30 AM EDT [facility] Blood Venipuncture / Unknown 08/08/2025 7:36 AM EDT 08/08/2025 8:15 AM EDT Narrative [facility] - 08/08/2025 8:30 AM EDT Hemoglobin A1C Ranges: Increased Risk for Diabetes 5.7% to 6.4% Diabetes >= 6.5% Diabetic Goal < 7.0% Bianca Banegas ACTUARIAL TECHNICIAN LAB BLOOD ORDERABLES Final R esult Performing Organization Address [facility]/ZIP Co de Phone Number [facility]
[address] [place] [address], [place] [phone] * CT Outside Head (08/07/2025 12:10 AM EDT) Narrative SYSTEMGENERATED, DOCUMENTATION - 08/08/2025 9:20 AM EDT This procedure was auto-finalized with no dictation required. us [employer] Outside Films IMG CT ORDERABLES Final Re sult * CT Outside Head (08/07/2025 12:05 AM EDT) Narrative SYSTEMGENERATED, DOCUMENTATION - 08/08/2025 9:08 AM EDT This procedure was auto-finalized with no dictation required. us [employer] Outside Films IMG CT ORDERABLES Final Re sult * CT Outside Chest (08/07/2025 12:00 AM EDT) Narrative SYSTEMGENERATED, DOCUMENTATION - 08/08/2025 8:56 AM EDT This procedure was auto-finalized with no dictation required. us [employer] Outside Films IMG CT ORDERABLES Final Re sult documented in this encounter Visit Diagnoses Diagnosis BPPV (benign paroxysmal positional vertigo)- Primary Benign paroxysmal positional vertigo Benign paroxysmal positional vertigo due to bilateral vestibular disorder Hyperlipidemia Other and unspecified hyperlipidemia documented in this encounter Admitting Diagnoses Diagnosis Dizziness Dizziness and giddiness documented in this encounter Administered Medications Inactive Administered Medications - up to 3 most recent administrations Medication Order MAR Action Action Date Dose Rate Site acetaminophen (TYLENOL) tablet 650 mg 650 mg, Oral, Every 6 Hours PRN, Mild Pain, Starting on Wed08/08/25 at 1603, If given for fever, use fever parameter: fever greater than 100.4 F Based on patient request - if ordered for moderate or severe pain, provider allows for administration of a medication prescribed for a lower pain scale. Do not exceed 4 grams of acetaminophen in a 24 hr period. Max dose of 2gm for AST/ALT greater than 120 units/L. If given for pain, use the following pain scale: Mild Pain = Pain Score of 1-3, CPOT 1-2 Moderate Pain = Pain Score of 4-6, CPOT 3-4 Severe Pain = Pain Score of 7-10, CPOT 5-8 aspirin chewable tablet 81 mg 81 mg, Oral, Daily, First dose on Wed08/08/25 at 0900, If patient fails dysphagia, LA option MUST be given. Do not exceed 4 grams of aspirin in a 24 hr period. If given for pain, use the following pain scale: Mild Pain = Pain Score of 1-3, CPOT 1-2 Moderate Pain = Pain Score of 4-6, CPOT 3-4 Severe Pain = Pain Score of 7-10, CPOT 5-8 Given 08/09/2025 8:12 AM EDT 81 mg Given 08/08/2025 8:48 AM EDT 81 mg aspirin suppository 300 mg 300 mg, Rectal, Daily, First dose on Wed08/08/25 at 0900, If patient fails dysphagia, LA option MUST be given. Do not exceed 4 grams of aspirin in a 24 hr period. If given for pain, use the following pain scale: Mild Pain = Pain Score of 1-3, CPOT 1-2 Moderate Pain = Pain Score of 4-6, CPOT 3-4 Severe Pain = Pain Score of 7-10, CPOT 5-8 atorvastatin (LIPITOR) tablet 80 mg 80 mg, Oral, Nightly, First dose (after last modification) on Wed08/08/25 at 2100, Avoid grapefruit juice. Given 08/08/2025 8:44 PM EDT 80 mg magnesium sulfate 2g/50 mL (PREMIX) infusion 2 g, Intravenous, Once, On Wed08/08/25 at 0800, For 1 dose New Bag 08/08/2025 8:48 AM EDT 2 g meclizine (ANTIVERT) tablet 25 mg 25 mg, Oral, 3 Times Daily PRN, Dizziness, Starting on Wed08/08/25 at 1603 nitroglycerin (NITROSTAT) SL tablet 0.4 mg 0.4 mg, Sublingual, Every 5 Minutes PRN, Chest Pain, Starting on Wed08/08/25 at 0642, If Pain Unrelieved After 3 Doses Notify MD May administer up to 3 doses per episode. Hold if SBP less than 100. sodium chloride 0.9 % bolus 500 mL 500 mL, Intravenous, at 1,000 mL/hr, Administer over 0.5 Hours, Once, On Wed08/08/25 at 0800, For 1 dose New Bag 08/08/2025 10:39 AM EDT 500 mL 1000 mL/hr sodium chloride 0.9 % flush 10 mL 10 mL, Intravenous, Every 12 Hours Scheduled, First dose on Wed08/08/25 at 0900 Given 08/09/2025 8:14 AM EDT 10 mL Given 08/08/2025 8:44 PM EDT 10 mL Given 08/08/2025 8:50 AM EDT 10 mL documented in this encounter Active and Recently Administered Medications Times are shown in EDT. Scheduled Medication Order 08/07/2025 08/08/2025 08/09/2025 aspirin chewable tablet 81 mg(Linked Group 1) 81 mg, Oral, Daily, First dose on Wed08/08/25 at 0900, If patient fails dysphagia, LA option MUST be given. Do not exceed 4 grams of aspirin in a 24 hr period. If given for pain, use the following pain scale: Mild Pain = Pain Score of 1-3, CPOT 1-2 Moderate Pain = Pain Score of 4-6, CPOT 3-4 Severe Pain = Pain Score of 7-10, CPOT 5-8 0848 (Given - Provider: Mercedez Martinez RN) 0812 (Given - Provider: Desirae Horton, FRIDA) aspirin suppository 300 mg(Linked Group 1) 300 mg, Rectal, Daily, First dose on Wed08/08/25 at 0900, If patient fails dysphagia, LA option MUST be given. Do not exceed 4 grams of aspirin in a 24 hr period. If given for pain, use the following pain scale: Mild Pain = Pain Score of 1-3, CPOT 1-2 Moderate Pain = Pain Score of 4-6, CPOT 3-4 Severe Pain = Pain Score of 7-10, CPOT 5-8 0848 (Not Given: See Alt - Provider: Mercedez Martinez RN) 0812 (Not Given: See Alt - Provider: Desirae Horton RN) atorvastatin (LIPITOR) tablet 80 mg 80 mg, Oral, Nightly, First dose (after last modification) on Wed08/08/25 at 2100, Avoid grapefruit juice. 2043 (Given - Provider: Jolene Zambrano RN) diphenhydrAMINE (BENADRYL) injection 25 mg 25 mg, Intravenous, Once, On Wed08/08/25 at 0800, For 1 dose, 25 mg may be given IV push over less than 1 minute. Caution: Look alike/sound alike drug alert. This med may be ordered in other forms and routes. Before giving verify the last time the drug was given by any route/form. 0849 (Not Given - Provider: Mercedez Martinez RN - Reason: Patient/family refused) magnesium sulfate 2g/50 mL (PREMIX) infusion (COMPLETED) 2 g, Intravenous, Once, On Wed08/08/25 at 0800, For 1 dose 0848 (New Bag - Provider: eMrcedez Martinez RN) prochlorperazine (COMPAZINE) injection 10 mg 10 mg, Intravenous, Once, On Wed08/08/25 at 0800, For 1 dose, If multiple N/V medications ordered, use in the following order: Ondansetron, Prochlorperazine, Promethazine. Use PO unless patient refuses or patient unable to swallow. 0850 (Not Given - Provider: Mercedez Martinez RN - Reason: Patient/family refused) sodium chloride 0.9 % bolus 500 mL (COMPLETED) 500 mL, Intravenous, at 1,000 mL/hr, Administer over 0.5 Hours, Once, On Wed08/08/25 at 0800, For 1 dose 1039 (New Bag - Provider: Mercedez Martinez RN) sodium chloride 0.9 % flush 10 mL (CANCELED) 10 mL, Intravenous, Every 12 Hours Scheduled, First dose on Wed08/08/25 at 0900 0850 (Given - Provider: Mercedez Martinez RN)2044 (Given - Provider: Jolene Zambrano RN) 0814 (Given - Provider: Desirae Horton, FRIDA) PRN Medication Order 08/07/2025 08/08/2025 08/09/2025 acetaminophen (TYLENOL) tablet 650 mg 650 mg, Oral, Every 6 Hours PRN, Mild Pain, Starting on Wed08/08/25 at 1603, If given for fever, use fever parameter: fever greater than 100.4 F Based on patient request - if ordered for moderate or severe pain, provider allows for administration of a medication prescribed for a lower pain scale. Do not exceed 4 grams of acetaminophen in a 24 hr period. Max dose of 2gm for AST/ALT greater than 120 units/L. If given for pain, use the following pain scale: Mild Pain = Pain Score of 1-3, CPOT 1-2 Moderate Pain = Pain Score of 4-6, CPOT 3-4 Severe Pain = Pain Score of 7-10, CPOT 5-8 meclizine (ANTIVERT) tablet 25 mg 25 mg, Oral, 3 Times Daily PRN, Dizziness, Starting on Wed08/08/25 at 1603 nitroglycerin (NITROSTAT) SL tablet 0.4 mg 0.4 mg, Sublingual, Every 5 Minutes PRN, Chest Pain, Starting on Wed08/08/25 at 0642, If Pain Unrelieved After 3 Doses Notify MD May administer up to 3 doses per episode. Hold if SBP less than 100. Linked Groups Order Group 1: aspirin chewable tablet 81 mgJump to med 81 mg, Oral, Daily, First dose on Wed08/08/25 at 0900, If patient fails dysphagia, LA option MUST be given. Do not exceed 4 grams of aspirin in a 24 hr period. If given for pain, use the following pain scale: Mild Pain = Pain Score of 1-3, CPOT 1-2 Moderate Pain = Pain Score of 4-6, CPOT 3-4 Severe Pain = Pain Score of 7-10, CPOT 5-8 Or aspirin suppository 300 mgJump to med 300 mg, Rectal, Daily, First dose on Wed08/08/25 at 0900, If patient fails dysphagia, LA option MUST be given. Do not exceed 4 grams of aspirin in a 24 hr period. If given for pain, use the following pain scale: Mild Pain = Pain Score of 1-3, CPOT 1-2 Moderate Pain = Pain Score of 4-6, CPOT 3-4 Severe Pain = Pain Score of 7-10, CPOT 5-8 documented in this encounter
[2025-08-10] VITALS (7 sets, daily range): BP systolic 116–139; BP diastolic 81–96; PULSE 68–90; RESP 13–18; TEMP 37–37.2; O2SAT 97–100; BMI 28.1
--- NOTE | 2025-08-10 09:47 | ECG_ITS ---
APPROVED REPORT Exam: Resting ECG HR:86 bpm ECG Measurements Heart Rate 86 AXES WY 153 P 71 QRSd 105 QRS 60 QT 356 T 42 QTc 399 Conclusion SINUS RHYTHM NORMAL ECG Electronically signed by : AKASH REDDY, 08/10/2025 16:11:19
--- OUTSIDE RECORDS SUMMARY | 2025-08-10 10:02 | XMS_ITS | Clinical Summary ---
Author Organization Healthcare Address [address] [place] [address] Care Team Providers Care Biomedical Specialist Name Role Phone Estefani Asencio DDS Unavailable [phone] Pcp, No Primary Care Provider Unavailabl e Allergies No known active allergies Medications cetirizine (ZyrTEC) 10 MG tablet Take 1 tablet (10 mg) by mouth 1 (one) time each day. 06/12/2024 Active fluticasone (Flonase) 50 MCG/ACT nasal spray SPRAY 1 SPRAY BY NASAL ROUTE EVERY DAY 06/15/2024 Active Social History Tobacco Use Types Packs/Day Years Used Date Smoking Tobacco: Never Smokeless Tobacco: Never Tobacco Cessation:Counseling Given: Not Answered Alcohol Use Standard Drinks/Week Comments Not Currently 0 (1 standard drink = 0.6 oz pur e alcohol) Sex and Gender Information Value Date Recorded Sex Assigned at Not on file Legal Sex Male 1:47 PM EDT Gender Identity Not on file Sexual Orientation Not on file Last Filed Vital Signs Vital Sign Reading Time Taken Comments Blood Pressure 144/96 07/03/2024 1:52 PM EDT Pulse 77 07/03/2024 1:52 PM EDT Temperature 36.3 C (97.4 F) 07/03/2024 1:52 PM EDT Respiratory Rate - - Oxygen Saturation 97% 07/03/2024 1:52 PM EDT Inhaled Oxygen Concentration - - Weight 90.5 kg (199 lb 9.6 oz) 07/03/2024 1:52 P M EDT Height 170.2 cm (5' 7 ) 07/03/2024 1:52 PM EDT Body Mass Index 31.26 07/03/2024 1:52 PM EDT Plan of Treatment Health Maintenance Due Date Last Done Comments Dental Oral Exam 1978 Dental Prophylaxis 1978 Dental X-Ray: Bitewings 1978 Dental X-Ray: Full Mouth 1978 [facility]-Depression Screening 1978 [facility]-HIV Screening 1978 [facility]-Hepatitis C Screening 1978 [facility]-Infant/Child/Adol SDOH Screenings 1978 [facility]- SDOH Screenings 1996 [facility]-Adult SDOH Screenings 1996 [facility]-DTaP,Tdap,and Td Vaccine s (1 - Tdap) 1997 [facility]-Hepatitis B Vaccines (1 of 3 - 19+ 3-dose series) 1997 CT Colonography 2023 Colonoscopy 2023 FIT-DNA 2023 FIT 2023 FOBT 2023 Sigmoidoscopy 2023 [facility]-Colorectal Cancer Screening 2023 [id number] Vaccine (3 - 2024- season) 2025 07/27/2021, 07/06/2021 [facility]-Influenza Vaccine (#1) 2025 08/31/2018 [facility]-Zoster Vaccines (1 of 2) 2028 [facility]-Obesity Intervention Completed 07/03/2024 HPV Vaccines Aged Out No longer eligi ble based on patient's age to complete this topic [facility]-HIB Vaccines Aged Out No longer e ligible based on patient's age to complete this topic [facility]-Hepatitis A Vaccines Aged Out No longer eligible based on patient's age to complete this topic [facility]-IPV Vaccines Aged Out No longer e ligible based on patient's age to complete this topic [facility]-Pneumococcal Vaccine: Pediatrics (0 to 5 Years) and At-Risk Patients (6 to 49 Years) Aged Out No longer eligible b ased on patient's age to complete this topic [facility]-Rotavirus Vaccines Aged Out No lo nger eligible based on patient's age to complete this topic [place] [address] [place] [address] Care Teams Biomedical Specialist Relationship Specialty Start Date End Date Pcp, Nathalia [address] [place] [address] PCP - General Family Medicine 08/08/24 Estefani Asencio DDS [address] [facility] [address] [place] [address] Dentist Dentist 07/03/24
--- OUTSIDE RECORDS SUMMARY | 2025-08-10 10:02 | XMS_ITS | Encounter Summary ---
Author Organization [place] [address] Care Team Providers Care Plant Wire Chief Name Role Phone Dashawn Barahona MD Primary Care Provider [phone] Reason for Visit * Reason Onset Date Comments Symptoms (Only Use If Pt Pus hes Back On Scheduling A Visit) 08/10/2025 BP 140/103 dizzy Dizziness 08/10/2025 Hypertension 08/10/2025 Encounter Details Date Type Department Care Team (Late st Contact Info) Description 08/10/2025 Nurse Triage [facility] [place] [place] [address] Dashawn Barahona MD [address] [place] [address] [place] [address] Social History Tobacco Use Types Packs/Day Years Used Date Smoking Tobacco: Former Cigarettes 2 14.5 0 10/25/1993 - 05/10/2008 Smokeless Tobacco: Former Quit: 04/10/2012 Comments:quit dipping 1 smith h ago Alcohol Use Standard Drinks/Week Comments Yes 0 (1 standard drink = 0.6 oz pur e alcohol) rarely-- formerly drank more PHQ-2 Answer Date Recorded PHQ-2 Total Score 0 03/09/2024 Sexually Active Control Partners Comments Yes Female Sex and Gender Information Value Date Recorded Sex Assigned at Not on file Legal Sex Male 11:58 PM EDT Gender Identity Not on file Sexual Orientation Not on file documented as of this encounter Last Filed Vital Signs Vital Sign Reading Time Taken Comments Blood Pressure 140/103 08/10/2025 8:43 AM EDT pt reported Pulse - - Temperature - - Respiratory Rate - - Oxygen Saturation - - Inhaled Oxygen Concentration - - Weight - - Height - - Body Mass Index - - documented in this encounter Functional Status * Is the person deaf or does he/she have serious difficulty hearing? Answer Date of Assessment Author No 06/24/2021 7:51 AM EDT Mayra Cruz RMFranco * Is the person blind or does he/she have serious difficulty seeing even when wearing glasses? Answer Date of Assessment Author No 06/24/2021 7:51 AM EDT Mayra Cruz RMA * Does this person have serious difficulty walking or climbing stairs? Answer Date of Assessment Author No 06/24/2021 7:51 AM EDT Mayra Cruz RMA * Does this person have difficulty dressing or bathing? Answer Date of Assessment Author No 06/24/2021 7:51 AM EDT Mayra Cruz RMA * Because of a physical, mental or emotional condition, does this person have difficulty doing errands alone such as visiting a doctor's office or shopping? Answer Date of Assessment Author No 06/24/2021 7:51 AM EDT Mayra Cruz RMFranco documented as of this encounter Mental Status * Because of a physical, mental or emotional condition, does this person have serious difficulty concentrating, remembering or making decisions? Answer Entry Date Author No 06/24/2021 7:51 AM EDT Mayra Cruz RMFranco documented in this encounter Miscellaneous Notes * Telephone Encounter - Ashvin Dhaliwal RN - 08/10/2025 8:39 AM EDT Nurse Triage Call -Chief Complaint: Dizziness, not able to stand d/t dizziness and feels more weak on left side of body. Patient d[facility]c'd [facility] and stroke workup negative-- mentioned therewas concern of not being able to see brain stem. BP 140/103 -Reported by: Spouse/Significant Other -Vitals: Blood Pressure 140/103 . Documented in Flowsheet: Yes. -Disposition per protocol: call 911. -Not applicable based on clinical presentation -Follow up/Concerns: verb understanding and states she will call 911 as advised. Reason for Disposition New neurologic deficit that is present now: * Weakness of the face, arm, or leg on one side of the body * Numbness of the face, arm, or leg on one side of the body * Loss of speech or garbled speech Protocols used: [id number] * Telephone Encounter - Ashvin Rosas RMA - 08/10/2025 8:34 AM EDT Select the most appropriate reason for this telephone message: Symptoms Call Who is Calling: Other Return Method of Communication: N/A What symptom(s) is the patient experiencing: BP 140/103, dizzy, not able to walk, room spinning, cotton mouth How long have symptoms been present: on this am Has the patient been seen for this:No If no, was an appointment/E-Visit offered/suggested? Sending to nurse triage Has the patient tried anything to relieve the symptoms and did it help: No If pain, what level is your pain: 0-1 (no pain) Desired Outcome: Advice Pharmacy & Location:[facility] Was patient transferred to Nurse Triage for additional help? Yes (remember to route this message [facility] Nurse Triage [place] # [id number]) Additional Information: N/A documented in this encounter Plan of Treatment Not on file documented as of this encounter Goals Goal Patient Goal Type Associated Problems Recent Progress Patient-Stated? Author Maintain a healthy diet, exercise regularly and maintain an ideal body weight General No Rianna Castañeda LPN Stay Tobacco Free Lifestyle No Rianna Castañeda LPN documented as of this encounter Visit Diagnoses Not on filedocumented in this encounter Care Teams Plant Wire Chief Relationship Specialty Start Date End Date Dashawn Barahona MD [address] [place] [address] [place] [address] PCP - General Family Medicine 06/24/21 documented as of this encounter
--- OUTSIDE RECORDS SUMMARY | 2025-08-10 10:02 | XMS_ITS | Encounter Summary ---
Author Organization [place] [address] Care Team Providers Care Dredge Pipe Operator Name Role Phone Dashawn Barahona MD Primary Care Provider [phone] Reason for Visit * Reason Onset Date Comments Relaying Information 08/10/2025 Pt going to hospital Encounter Details Date Type Department Care Team (Late st Contact Info) Description 08/10/2025 Telephone SEP [place] [address] [place] [address] Dashawn Barahona MD [address] [place] [address] [place] [address] Relaying Information (Pt going to hospital ) Social History Tobacco Use Types Packs/Day Years [...] on file documented as of this encounter Functional Status * Is the person deaf or does he/she have serious difficulty hearing? Answer Date of Assessment Author No 06/24/2021 7:51 AM EDT Mayra Cruz RMA * Is the person blind or does he/she have serious difficulty seeing even when wearing glasses? Answer Date of Assessment Author No 06/24/2021 7:51 AM EDT Anthony , Mayra L, JESSIE * Does this person have serious difficulty walking or climbing stairs? Answer Date of Assessment Author No 06/24/2021 7:51 AM EDT Anthony Tanishamike Marroquin JESSIE * Does this person have difficulty dressing or bathing? Answer Date of Assessment Author No 06/24/2021 7:51 AM EDT Anthony Tanishamike MarroquinJESSIE * Because of a physical, mental or emotional condition, does this person have difficulty doing errands alone such as visiting a doctor's office or shopping? Answer Date of Assessment Author No 06/24/2021 7:51 AM EDT Anthony , Mayra LJESSIE documented as of this encounter Mental Status * Because of a physical, mental or emotional condition, does this person have serious difficulty concentrating, remembering or making decisions? Answer Entry Date Author No 06/24/2021 7:51 AM EDT Anthony , Mayra L, JESSIE documented in this encounter Miscellaneous Notes * Telephone Encounter - Dashawn Barahona MD - 08/10/2025 9:31 AM EDT Thanks for the update, recommend follow up in office with me sometime next week. Please help them schedule * Telephone Encounter - Luz Reyes MA - 08/10/2025 9:27 AM EDT fyi * Telephone Encounter - Radha Howell LPN - 08/10/2025 9:22 AM EDT Select the most appropriate reason for this telephone message: Relaying Information Relaying Information Who is Calling: Other Natalie Return Method of Communication:Phone call What information is the caller relaying:FYI Pt was transferred to nurse triage to discuss pts symptoms BP 140/103, dizzy, not able to walk, room spinning, cotton mouth Triage had pts call squad. When squad arrived, they checked pts blood sugar and it was 49. Pt is being taken to [facility]. Further action needed: No Additional Information:N/A documented in this encounter Plan of Treatment [...] on filedocumented in this encounter Care Teams Dredge Pipe Operator Relationship Specialty Start Date End Date Dashawn Barahona MD [address] [place] [address] [place] [address] PCP - General Family Medicine 06/24/21 documented as of this encounter
--- OUTSIDE RECORDS SUMMARY | 2025-08-10 10:03 | XMS_ITS | Clinical Summary ---
Author Organization [facility] Address [address] [place] [address] Care Team Providers Care Raking Machine Operator Name Role Phone Unavailable Primary Care Provider Unavailabl e Allergies No known active allergies Medications cetirizine (zyrTEC) 10 MG tablet Take 1 tablet by mouth Daily. Active PHARMACY MEDS TO BED CONSULT Use Daily. 5 Active atorvastatin (LIPITOR) 20 MG tablet Take 1 tablet by mouth Every Night. 30 tablet 5 Active meclizine (ANTIVERT) 25 MG tablet Take 1 tablet by mouth 3 (Three) Times a Day As Needed for Dizziness. 21 tablet 5 Active atorvastatin (LIPITOR) 20 MG tablet Take 1 tablet by mouth Every Night. 30 tablet 5 08/09/20 25 Discontinued meclizine (ANTIVERT) 25 MG tablet Take 1 tablet by mouth 3 (Three) Times a Day As Needed for Dizziness. 21 tablet 5 08/09/20 25 Discontinued Active Problems Problem Noted Date Diagnosed Date Hyperlipidemia 08/09/2025 BPPV (benign paroxysmal positional vertigo) 07/25 Encounters Date Type Department Care Team Description 08/08/2025 6:36 AM EDT - 08/09/2025 3:22 PM EDT Hospital Encounter [address] [place] [id number] Chip Adams MD Barbato, Hayley R, DO Cordray, Ann, MD Benign paroxysmal positional vertigo due to bilateral vestibular disorder (Primary Dx) Discharge Disposition: Home or Self Care 08/08/2025 Travel from Last 3 Months Family History Medical History Relation Name Comments Heart disease Father Hypertension Father Leukemia Mother Relation Name Status Comments Father Mother Social History Tobacco Use Types Packs/Day Years [...] care, and heating? Not very hard 08/08/2025 [facility] Occupat ional Health - Occupational Stress [...] things needed for daily living? No 08/08/2025 [facility] Utilities Answer Date Recorded In the past [...] GED or equivalent No 08/08/2025 Preferred Language Mauritanian 08/08/2025 PHQ-2 Answer Date Recorded Patient Health [...] - - Body Mass Index - - Plan of Treatment Upcoming Encounters Date Type Department Care Team (Late st Contact Info) Description 08/14/2025 10:15 AM EDT Office Visit [facility] [address] [place] [address] [place] [address] Pratik Salguero MD [address] [place] [address] Health Maintenance Due Date Last Done Comments ANNUAL PHYSICAL 1978 HEPATITIS C SCREENING 1978 TDAP/TD VACCINES (1 - Tdap) 1997 COLOGUARD 2023 COLON CANCER SCREENING [address] COLONOGRAPHY 2023 FECAL OCCULT BLOOD TEST 2023 FIT Testing (1 year) 2023 INFLUENZA VACCINE 05/25/2025 08/31/2018 LIPID PANEL 08/08/2026 08/08/2025, 02/22, 05/25/2022, Additional history exists COLONOSCOPY 05/19/2034 05/19/2024, 05/19/2024 COLORECTAL CANCER SCREENING 05/19/2034 Pneumococcal Vaccine 0-49 Aged Out No longer eligible based on patient's age to complete this topic Procedures Procedure Name Priority Date/Time Associated Diagnosis Comments ECHO COMPLETE W/ DOPPLER AND COLOR FLOW Routine 08/09/2025 1:21 PM EDT MRI BRAIN WO CONTRAST Routine 08/08/2025 4:54 PM EDT FENTANYL, URINE Routine 08/08/2025 8:58 AM EDT URINE DRUG SCREEN Routine 08/08/2025 8:[address] OUTSIDE NECK Routine 08/08/2025 8:56 AM EDT CBC AND DIFFERENTIAL Routine 08/08/2025 7:36 AM EDT CBC WITH AUTO DIFFERENTIAL Routine 08/08/2025 7:36 AM EDT TSH Routine 08/08/2025 7:36 AM EDT COMPREHENSIVE METABOLIC PANEL Routine 08/08/2025 7:36 AM EDT LIPID PANEL Urgent 08/08/2025 7:36 AM EDT HEMOGLOBIN A1C Routine 08/08/2025 7:[address] OUTSIDE HEAD Routine 08/07/2025 12:[address] OUTSIDE HEAD Routine 08/07/2025 12:[address] OUTSIDE CHEST Routine 08/07/2025 12:0 0 AM EDT from Last 3 Months Results * ECHO COMPLETE W/ DOPPLER AND COLOR FLOW (08/09/2025 1:21 PM EDT) [facility] EF(MOD-bp) 62.0 % LVIDd 4.2 cm LVIDs [...] agitated saline was administered. us Bianca Banegas APRN CV ECHO ORDERABLES Final Res ult * MRI Brain Without Contrast (08/08/2025 4:54 PM EDT) Anatomical Region Laterality Modality Head, Neck N/A Magnetic Resonan ce 08/08/2025 5:00 PM EDT Impressions 08/08/2025 5:06 PM EDT Impression: No acute intracranial finding. Electronically Signed: Lorenzo Saravia MD 08/08/2025 5:06 PM EDT Workstation ID: [id number] Narrative 08/08/2025 5:06 PM EDT MRI BRAIN [...] MD 08/08/2025 5:06 PM EDT Workstation ID: [id number] us Bianca Banegas [facility] IM[facility] MRI ORDERABLES Final Res ult * (ABNORMAL) Urine Drug Screen - Urine, Clean Catch (08/08/2025 8:58 AM EDT) THC, Screen, Urine Negative Negative 2024 9:19 AM EDT [facility] Phencyclidine (PCP), Urine Negative Negative 08/08/2025 9:19 AM EDT [facility] Cocaine Screen, Urine Negative Negative 08/08/2025 9:19 AM EDT [facility] Methamphetamine, Ur Negative Negative 08/08/2025 9:19 AM EDT [facility] Opiate Screen Negative Negative 08/08/2025 9:19 AM EDT [facility] Amphetamine Screen, Urine Negative Negative 08/08/2025 9:19 AM EDT [facility] Benzodiazepine Screen, Urine Positive(A) Negative 08/08/2025 9:19 AM EDT [facility] Tricyclic Antidepressants Screen Negative Negative 08/08/2025 9:19 AM EDT [facility] Methadone Screen, Urine Negative Negative 08/08/2025 9:19 AM EDT [facility] Barbiturates Screen, Urine Negative Negative 08/08/2025 9:19 AM EDT [facility] Oxycodone Screen, Urine Negative Negative 08/08/2025 9:19 AM EDT [facility] Buprenorphine, Screen, Urine Negative Negative 08/08/2025 9:19 AM EDT [facility] Urine Urine specimen obtained by clean catch procedure / Unknown Collection / Unknown 08/08/2025 8:58 AM EDT 08/08/2025 9:07 AM EDT [facility] - 08/08/2025 9:19 AM EDT Cutoff [...] test, particularly when unconfirmed results are used. Rose Casey MD URINE ORDERABLES Final Result [facility]
[address] [place] [address], * Fentanyl, Urine - Urine, Clean Catch (08/08/2025 8:58 AM EDT) Fentanyl, Urine Negative Negative 08/08/2025 10:12 AM EDT [facility] Urine Urine specimen obtained by clean catch procedure / Unknown Collection / Unknown 08/08/2025 8:58 AM EDT 08/08/2025 9:07 AM EDT Narrative [facility] - 08/08/2025 10:12 AM EDT [...] test, particularly when unconfirmed results are used. Rose Casey MD URINE ORDERABLES Final Result [facility]
[address] [place] [address], * CT Outside Neck (08/08/2025 8:56 AM EDT) Narrative SYSTEMGENERATED, DOCUMENTATION - 08/08/2025 8:56 AM EDT This procedure was auto-finalized with no dictation required. us [employer] Outside Films IMG CT ORDERABLES Final Re sult * CBC Auto Differential (08/08/2025 7:36 AM EDT) WBC 5.70 3.40 - 10.80 10*3/mm3 08/08/2025 8:01 AM EDT [facility] RBC 5.24 4.14 - 5.80 10*6/mm3 08/08/2025 8:01 AM EDT [facility] Hemoglobin 15.1 13.0 - 17.7 g/dL 08/08/2025 8:01 AM EDT [facility] Hematocrit 45.6 37.5 - 51.0 % 08/08/2025 8:01 AM EDT [facility] MCV 87.0 79.0 - 97.0 fL 08/08/2025 8:01 AM EDT [facility] MCH 28.8 26.6 - 33.0 pg 08/08/2025 8:01 AM [facility] MCHC 33.1 31.5 - 35.7 g/dL 08/08/2025 8:01 AM [facility] RDW 13.0 12.3 - 15.4 % 08/08/2025 8:01 AM [facility] RDW-SD 40.9 37.0 - 54.0 fl 08/08/2025 8:01 AM [facility] MPV 10.0 6.0 - 12.0 fL 08/08/2025 8:01 AM [facility] Platelets 220 140 - 450 10*3/mm3 08/08/2025 8:01 AM [facility] Neutrophil % 57.2 42.7 - 76.0 % 08/08/2025 8:01 AM [facility] Lymphocyte % 30.2 19.6 - 45.3 % 08/08/2025 8:01 AM [facility] Monocyte % 9.8 5.0 - 12.0 % 08/08/2025 8:01 AM [facility] Eosinophil % 1.9 0.3 - 6.2 % 08/08/2025 8:01 AM [facility] Basophil % 0.7 0.0 - 1.5 % 08/08/2025 8:01 AM [facility] Immature Grans % 0.2 0.0 - 0.5 % 08/08/2025 8:01 AM [facility] Neutrophils, Absolute 3.26 1.70 - 7.00 10*3/mm3 08/08/2025 8:01 AM [facility] Lymphocytes, Absolute 1.72 0.70 - 3.10 10*3/mm3 08/08/2025 8:01 AM [facility] Monocytes, Absolute 0.56 0.10 - 0.90 10*3/mm3 08/08/2025 8:01 AM [facility] Eosinophils, Absolute 0.11 0.00 - 0.40 10*3/mm3 08/08/2025 8:01 AM EDT [facility] Basophils, Absolute 0.04 0.00 - 0.20 10*3/mm3 08/08/2025 8:01 AM EDT [facility] Immature Grans, Absolute 0.01 0.00 - 0.05 10*3/mm3 08/08/2025 8:01 AM EDT [facility] nRBC 0.0 0.0 - 0.2 /100 WBC 08/08/2025 8:01 AM EDT [facility] Blood Venipuncture / Unknown 08/08/2025 7:36 AM EDT 08/08/2025 7:52 AM EDT us Rose Casey MD LAB BLOOD ORDERABLES Final Resul t Performing Organization Address City/[facility] Co de Phone Number [facility]
[address] [place] [address], * TSH (08/08/2025 7:36 AM EDT) TSH 1.880 0.270 - 4.200 uIU/mL 08/08/2025 8:42 AM EDT [facility] Blood Venipuncture / Unknown 08/08/2025 7:36 AM EDT 08/08/2025 7:52 AM EDT us Rose Casey MD LAB BLOOD ORDERABLES Final Resul t Performing Organization Address City/[facility]/ZIP Co de Phone Number [facility]
[address] [place] [address], [place] [phone] * Hemoglobin A1c (08/08/2025 7:36 AM EDT) Hemoglobin A1C 5.53 4.80 - 5.60 % 08/08/2025 8:30 AM EDT [facility] Blood Venipuncture / Unknown 08/08/2025 7:36 AM EDT 08/08/2025 8:15 AM EDT [facility] - 08/08/2025 8:30 AM EDT Hemoglobin A1C Ranges: Increased Risk for Diabetes 5.7% to 6.4% Diabetes >= 6.5% Diabetic Goal < 7.0% Bianca Banegas [facility] LAB BLOOD ORDERABLES Final R esult [facility]
[address] [place] [address], * (ABNORMAL) Lipid Panel (08/08/2025 7:36 AM EDT) Total Cholesterol 184 0 - 200 mg/dL 08/08/2025 8:42 AM EDT [facility] Triglycerides 87 0 - 150 mg/dL 08/08/2025 8:42 AM EDT [facility] HDL Cholesterol 42 40 - 60 mg/dL 08/08/2025 8:42 AM EDT [facility] LDL Cholesterol 126(H) 0 - 100 mg/dL 08/08/2025 8:42 AM EDT [facility] VLDL Cholesterol 16 5 - 40 mg/dL 08/08/2025 8:42 AM EDT [facility] LDL/HDL Ratio 2.97 08/08/2025 8:42 AM EDT [facility] Blood Venipuncture / Unknown 08/08/2025 7:36 AM EDT 08/08/2025 7:52 AM EDT [facility] - 08/08/2025 8:42 AM EDT Cholesterol [...] calculated using the NIH LDL-C calculation. Bianca Banegas [facility] BLOOD ORDERABLES Final R esult [facility]
[address] [place] [address], * Comprehensive Metabolic Panel (08/08/2025 7:36 AM EDT) [facility] Glucose 93 65 - 99 mg/dL 08/08/2025 8:42 AM EDT [facility] BUN 10.4 6.0 - 20.0 mg/dL 08/08/2025 8:42 AM EDT [facility] Creatinine 0.98 0.76 - 1.27 mg/dL 08/08/2025 8:42 AM EDT [facility] Sodium 141 136 - 145 mmol/L 08/08/2025 8:42 AM EDT [facility] Potassium 4.4 3.5 - 5.2 mmol/L 08/08/2025 8:42 AM EDT [facility] Chloride 104 98 - 107 mmol/L 08/08/2025 8:42 AM EDT [facility] CO2 27.2 22.0 - 29.0 mmol/L 08/08/2025 8:42 AM EDT [facility] Calcium 9.3 8.6 - 10.5 mg/dL 08/08/2025 8:42 AM EDT [facility] Total Protein 6.9 6.0 - 8.5 g/dL 08/08/2025 8:42 AM EDT [facility] Albumin 4.3 3.5 - 5.2 g/dL 08/08/2025 8:42 [facility] ALT (SGPT) 26 1 - 41 U/L 08/08/2025 8:42 AM EDT [facility] AST (SGOT) 24 1 - 40 U/L 08/08/2025 8:42 AM EDT [facility] Alkaline Phosphatase 47 39 - 117 U/L 08/08/2025 8:42 AM EDT [facility] Total Bilirubin 0.8 0.0 - 1.2 mg/dL 08/08/2025 8:42 AM EDT [facility] Globulin 2.6 gm/dL 08/08/2025 8:42 AM T [facility] Comment:Calculated Result A/G Ratio 1.7 g/dL 08/08/2025 8:42 AM EDT [facility] BUN/Creatinine Ratio 10.6 7.0 - 25.0 08/08/2025 8:42 AM EDT [facility] Anion Gap 9.8 5.0 - 15.0 mmol/L 08/08/2025 8:42 AM EDT [facility] eGFR 95.7 >60.0 mL/min/1.7 3 08/08/2025 8:42 AM T [facility] Blood Venipuncture / Unknown 08/08/2025 7:36 AM EDT 08/08/2025 7:52 AM EDT Narrative [facility] - 08/08/2025 8:42 AM EDT GFR [...] not include race as a factor us Rose Casey MD LAB BLOOD ORDERABLES Final Resul t [facility]
[address] [place] [address], * CT Outside Head (08/07/2025 12:10 AM EDT) Only the most recent of2 resultswithin the time period is included. Narrative SYSTEMGENERATED, DOCUMENTATION - 08/08/2025 9:20 AM EDT This procedure was auto-finalized with no dictation required. us [employer] Outside Films IMG CT ORDERABLES Final Re sult * CT Outside Chest (08/07/2025 12:00 AM EDT) Narrative SYSTEMGENERATED, DOCUMENTATION - 08/08/2025 8:56 AM EDT This procedure was auto-finalized with no dictation required. us [employer] Outside Films IMG CT ORDERABLES Final Re sult from Last 3 Months Insurance Advance Directives * CPR (Attempt to Resuscitate) (Latest Code Status on File) Date Activated Date Inactivated Comments 08/08/2025 9:36 AM 08/09/2025 5:24 PM Question Answer Comments Code Status (Patient has no pulse and is not breathing): CPR (Attempt to Resuscitate) Medical Interventions (Patie nt has pulse or is breathing): Full Support Level Of Support Discussed With: Patient
--- OUTSIDE RECORDS SUMMARY | 2025-08-10 10:03 | XMS_ITS | Encounter Summary ---
Author Organization [facility] Address [address] [place] [address] Care Team Providers Care Brigadier Name Role Phone Unavailable Primary Care Provider Unavailabl e Encounter Details Date Type Department Care Team (Latest Contact Info) Description 08/08/2025 Travel Social History Tobacco Use Types Packs/Day Years Used Date Smoking Tobacco: Never Smokeless Tobacco: Never Alcohol Use Standard Drinks/Week Comments Yes 4 [...] care, and heating? Not very hard 08/08/2025 [facility] [place] [facility] Occupat ional Health - Occupational Stress [...] things needed for daily living? No 08/08/2025 [facility] Utilities Answer Date Recorded In the past [...] GED or equivalent No 08/08/2025 Preferred Language Danish 08/08/2025 PHQ-2 Answer Date Recorded Patient Health Questionnaire-2 Score 0 08/08/2025 Sex and Gender Information Value Date Recorded Sex Assigned at Not on file Legal Sex Male 10:01 PM EDT Gender Identity Not on file Sexual Orientation Not on file documented as of this encounter Functional Status * Question Answer [...] 8:34 AM EDT Mercedez Roland RN * [place] Suicide Severity Rating Scale (Screener/Recent Self-Report) Question Answer Date of Assessment Author 6. Suicidal Behavior (Lifetime) No 08/08/2025 8:34 AM EDT Florentino Martinez RN * Question Answer Date of Assessment Author Little interest or pleasure in doing things Not at all 08/08/2025 8:04 AM EDT [place] RN Feeling down, depressed, or hopeless Not at all 08/08/2025 8:04 AM EDERT [place] RN Patient Health Questionnaire -2 Score 0 08/08/2025 8:04 AM EDERT [place] RN documented as of this encounter Plan of Treatment Upcoming Encounters Date Type Department Care Team (Late st Contact Info) Description 08/14/2025 10:15 AM EDT Office Visit [facility] [address] [place] [address] [place] [phone] Pratik Salguero MD [facility] [place] [address] documented as of this encounter Visit Diagnoses Not on filedocumented in this encounter
--- OUTSIDE RECORDS SUMMARY | 2025-08-10 10:03 | XMS_ITS | Clinical Summary ---
Author Organization [facility] Address [address] [place] [address] Phone Care Team Providers Care Paper Cup Machine Operator Name Role Phone Dashawn Barahona MD Primary Care Provider [phone] Allergies No known active allergies Medications fluticasone propionate (FLONASE) 50 mcg/actuation Nasl [place], SuspensionIndic ations:Eustachi an tube dysfunction, bilateral 1 [place] by Nasal route daily. 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 09/18/2017 Hypertriglyceridemia 11/08/2015 Encounters Date Type Department Care Team Description 08/10/2025 Telephone SEP [facility] [address] [place] [phone] Dashawn Barahona MD Relaying Information (Pt going to hospital ) 08/10/2025 Nurse Triage SEP [facility] [address] [place] [phone] Dashawn Barahona MD from Last 3 Months Immunizations Immunization Administration Dates Next Due Influenza Patient Reported 08/31/2018 Pfizer SARS-CoV-2 Vaccine 12+ Yrs (Purple Cap) 1 ,07/06/2021 Surgical History Surgery Date Site/Laterality Comments APPENDECTOMY 2006 SHOULDER SURGERY (L) & (R) shoulder 2006 Medical History Medical History Date Comments Post-operative nausea and vomiting Meningitis spinal Family History Medical History Relation Name Comments Arthritis Father Defects Father Cancer Father lung Hearing Loss Father Heart Disease Father High Blood Pressure Father High Cholesterol Father Asthma Mother Cancer Mother lymphoma Other Mother back pain Stroke Mother Relation Name Status Comments Father Alive Mother Alive Social History Tobacco Use Types Packs/Day Years Used Date Smoking Tobacco: Former Cigarettes 2 14.5 0 10/25/1993 - 05/10/2008 Smokeless Tobacco: Former Quit: 04/10/2012 Tobacco Cessation:Counseling Given: Not Answered Comments:quit dipping 1 month ago Alcohol Use Standard Drinks/Week Comments Yes [...] 08/10/2025 8:43 AM EDT pt reported Pulse 93 03/28/2025 8:01 AM EDT Temperature 36.8 C (98.2 F) 03/28/2025 8:01 AM EDT Respiratory Rate 18 03/28/2025 8:01 AM EDT Oxygen Saturation 98% 03/28/2025 8:0 1 AM EDT Inhaled Oxygen Concentration - - Weight 85.6 kg (188 lb 12.8 oz) 03/28/2025 8:01 AM EDT Height 170.2 cm (5' 7 ) 02/15/2025 2:10 PM EDT Body Mass Index 29.57 02/15/2025 2:10 PM EDT Plan of Treatment Health Maintenance Due Date Last Done Comments DTaP/TDaP/Td (1 - Tdap) 1997 Hepatitis B Vaccine (1 of 3 - 19+ 3-dose series) 1997 Cologuard 2023 FIT 2023 Sigmoidoscopy 2023 Virtual Colonography 2023 Annual Wellness Exam 03/09/2025 03/09/2024 COVID-19 Vaccine (3 - 2024-2 6 season) 2025 07/27/2021, 07/06/2021 Influenza Vaccine (#1) 2025 8, 09/22/2017 (Declined), 11/08/2015 (Declined) Colon Cancer Screening 05/19/2034 Colonoscopy 05/19/2034 05/19/2024 Meningococcal B Vaccine Aged Out No l onger eligible based on patient's age to complete this topic Pneumococcal Vaccine 0-49 Aged Out No longer eligible based on patient's age to complete this topic Goals Goal Patient Goal Type Associated Problems Recent Progress Patient-Stated? Author Maintain a healthy diet, exercise regularly and maintain an ideal body weight General No Rice, Rianna, PST SUPERVISOR Stay Tobacco Free Lifestyle No Rice, Rianna, PST SUPERVISOR Procedures Procedure Name Priority Date/Time Associated Diagnosis Comments COLONOSCOPY Routine 05/19/2024 9:18 AM EDT Screening for colon cancer from Last 3 Months or Most Recently Relevant to Health Maintenance Results * COLONOSCOPY (05/19/2024 9:18 AM EDT) Anatomical Region Laterality Modality Endoscopy Narrative 05/19/2024 9:18 AM EDT Table formatting from the original result was not included. Findings The bowel prep quality was excellent. Internal small hemorrhoids No polyps were seen. Recommendation Repeat screening colonoscopy in 10 years Pre-Procedure Diagnosis / Indication Screening for colon cancer - initial Post-Procedure Diagnosis Screening for colon cancer Staff Staff Role Yair Brunner CRNA TECHNICAL CONSULTANT Fatuma Golden, youth pastor Nurse Dimitrios Fraser, FRIDA Manager Utilities Natalie Catherine, youth pastor Nurse Magda Kothari MD Anesthesiologist Johny Cole MD PHD Performing Provider Medications See Anesthesia Record. Preprocedure A history and physical has been performed, and patient medication allergies have been reviewed. The patient's tolerance of previous anesthesia has been reviewed. The risks and benefits of the procedure and the sedation options and risks were discussed with the patient. All questions were answered and informed consent obtained. ASA 2 - Patient with mild systemic disease Details of the Procedure The patient underwent monitored anesthesia care, which was administered by an anesthesia professional. The patient's blood pressure, heart rate, level of consciousness, oxygen, respirations, ECG and ETCO2 were monitored throughout the procedure. A digital rectal exam was performed. The scope was introduced through the anus and advanced to the cecum. Retroflexion was performed in the rectum. Bowel prep was adequate. The patient experienced no blood loss. The procedure was not difficult. The patient tolerated the procedure well. There were no apparent adverse events. Patient provided education and educated on specific discharge instructions. Patient educated on medications given during the procedure and new medications for discharge. Patient verbalizes understanding of discharge education. Patient stable and awaiting transport for discharge. Events Procedure Events Event Event Time ENDO SCOPE IN TIME 05/19/2024 9:04 AM ENDO CECUM REACHED 05/19/2024 9:06 AM ENDO SCOPE OUT TIME 05/19/2024 9:16 AM Specimens No specimens collected Anesthesia Event Time In Patient In - Proc. Room 08:46 AM Doe Burnham DO ENDOSCOPY PROCEDURE ORDERABLE S Final Result from Last 3 Months or Most Recently Relevant to Health Maintenance Insurance Advance Directives For more information, please contact: [phone] * Full Code (Latest Code Status on File) Date Activated Date Inactivated Comments 09/18/2017 3:03 AM 09/19/2017 8:09 PM Care Teams Paper Cup Machine Operator Relationship Specialty Start Date End Date Dashawn Barahona MD [address] [place] [address] [place] [address] PCP - General Family Medicine 06/24/21
--- OUTSIDE RECORDS SUMMARY | 2025-08-10 10:03 | XMS_ITS | Encounter Summary ---
Author Organization Healthcare Address [address] [place] [id number] Care Team Providers Care Business Librarian Name Role Phone Estefani Asencio DDS Unavailable [phone] Pcp, No Primary Care Provider Unavailabl e Reason for Referral * Consultation (Routine) - Closed Specialty Diagnoses / Procedures Referred By Contgal t Referred To Contact Dentist / Pain Medicine Diagnoses Obstructive sleep apnea (adult) (pediatric) Leda Khan MD [address] [place] [address] [place] [address] Phone: tel: fax: Marce Milligan, DDS [address] [place] [address] Phone: tel: fax: Referral ID Status Reason Start Date Expiration Date Visits Re quested Visits Authorized [id number] Closed 06/15/2024 12/15/2025 1 1 Encounter Details Date Type Department Care Team (Late st Contact Info) Description 06/15/2024 [facility] [address] [place] [address] Leda Khan MD [address] [place] [address] [place] [id number] Obstructive sleep apnea (adult) (pediatric) (Primary Dx) Social History Tobacco Use Types Packs/Day Years Used Date Smoking Tobacco: Never Assessed Sex and Gender Information Value Date Recorded Sex Assigned at Not on file Legal Sex Male 1:47 PM EDT Gender Identity Not on file Sexual Orientation Not on file documented as of this encounter Plan of Treatment Scheduled Referrals Name Type Priority Associated Diagnoses Order Schedule Ambulatory Referral to Orofacial Pain Outpatient Referral Routine Obstructive sleep apnea (adult) (pediatric) Expected: 06/15/2024 (Approximate), Expires: 12/16/2025 documented as of this encounter Visit Diagnoses Diagnosis Obstructive sleep apnea (adult) (pediatric)- Primary documented in this encounter Care Teams Business Librarian Relationship Specialty Start Date End Date Pcp, Nathalia [address] [place] [address] PCP - General Family Medicine 08/08/24 Estefani Asencio DDS [address] [facility] [address] [place] [address] Dentist Dentist 07/03/24 documented as of this encounter
--- NOTE | 2025-08-10 10:09 | CT_ITS ---
FINAL REPORT TECHNIQUE: Thin section axial images are obtained through the brain after intravenous contrast injection. Multiplanar reconstructions were obtained from the axial data. Exam was performed using dose reduction techniques such as automated exposure control, adjustment of the mA and kV according to patient size, and use of iterative reconstruction technique. CLINICAL HISTORY: dysequilibrium COMPARISON: 08/07/2025 FINDINGS: The intracerebral portions of the carotid arteries are patent. The anterior and middle cerebral arteries are patent without stenosis or occlusion. The posterior cerebral arteries are patent. The basilar artery is patent. The vertebral arteries are patent. There is no significant stenosis, aneurysm, or AVM. IMPRESSION: Unremarkable CT angiogram of the intracerebral vasculature. Reviewed, Interpreted and Dictated by Mehreen Ramos MD Transcribed by Tosin Ghosh Authenticated and [facility]
--- NOTE | 2025-08-10 10:09 | CT_ITS ---
FINAL REPORT TECHNIQUE: Axial, sagittal, and coronal images were obtained with delayed imaging to allow for opacification of the venous system. This study was performed with techniques to keep radiation doses as low as reasonably achievable (ALARA). Individualized dose reduction techniques using automated exposure control or adjustment of mA and/or kV according to the patient's size were employed. CLINICAL HISTORY: dysequilibrium COMPARISON: None FINDINGS: No evidence of acute hemorrhage or infarct. The superior sagittal sinus is patent. The transverse and sigmoid sinuses are patent. Other venous structures are unremarkable. IMPRESSION: No evidence of dural venous sinus thrombus. Unremarkable CT venogram. Reviewed, Interpreted and Dictated by Mehreen Ramos MD Transcribed by Tosin Ghosh Authenticated and [facility]
--- NOTE | 2025-08-10 10:09 | CT_ITS ---
FINAL REPORT TECHNIQUE: Thin section axial images were obtained from skull base to vertex without contrast. Coronal reconstruction images were obtained from the axial data. Exam was performed using dose reduction techniques such as automated exposure control, adjustment of the mA and kV according to patient size, and use of iterative reconstruction technique. CLINICAL HISTORY: dysequilibrium COMPARISON: 08/07/2025 FINDINGS: There is no mass effect or midline shift. There is no hydrocephalus. There is no intracranial hemorrhage. The posterior fossa is without acute abnormality. The basilar cisterns are preserved. The soft tissues are without acute abnormality. No acute osseous abnormality is identified. IMPRESSION: No acute intracranial abnormality. Reviewed, Interpreted and Dictated by Mehreen Ramos MD Transcribed by Tosin Ghosh Authenticated and . [facility]
--- NOTE | 2025-08-10 10:09 | CT_ITS ---
FINAL REPORT TECHNIQUE: Thin section axial images were obtained from the aortic arch to the skull base after intravenous contrast injection per CTA protocol. Multiplanar reconstruction images were obtained. Exam was performed using dose reduction techniques and the ALARA principle. CLINICAL HISTORY: dysequilibrium COMPARISON: 08/07/2025 FINDINGS: CTA NECK: Aortic arch: There is a normal three-vessel configuration to the aortic arch. There is no significant stenosis of the great vessels at their origins. Right carotid artery: The right common carotid artery is patent without stenosis. The cervical portions of the right internal carotid artery are patent without stenosis. 0% stenosis per NASCET criteria. Left carotid artery: The left common carotid artery is patent without stenosis. The cervical portions of the left internal carotid artery are patent without stenosis. 0% stenosis per NASCET criteria. Vertebral arteries: The vertebral arteries are patent. No significant stenosis. Other soft tissues: No acute findings. IMPRESSION: No acute findings. Reviewed, Interpreted and Dictated by Mehreen Ramos MD Transcribed by Tosin Ghosh Authenticated and [facility]
--- NOTE | 2025-08-10 10:11 | ED_ITS ---
Discharge Plan Disposition Patient Disposition: Home, Self-Care Prescriptions Prescriptions: No Action acetaminophen [Tylenol] 325 mg capsule 325 mg PO QID PRN ibuprofen 200 mg tablet 200 mg PO Q6H PRN fluticasone propionate 50 mcg/actuation spray,suspension 2 spray intranasal DAILY Rx Instructions: administer into each nostril All Day Allergy (cetirizine) 10 mg capsule 10 mg PO DAILY PRN Referrals Follow up/Referrals: Jorje Solis APRN [Primary Care Provider, Neurology] - See instructions Activity Restrictions/Add. Instructions Additional Instructions/Restrictions: At this time it was felt you are safe to be discharged home. If new or worsening symptoms please do not hesitate to return the emergency department. As discussed please follow-up with ENT Wednesday. Clinical Impressions Clinical Impression: Disequilibrium Print Language Print Language: Senegalese Discharge ED Provider: Srinivas Chau General Adult HPI General Chief complaint: Dizziness Stated complaint: Dizziness Time Seen by Provider: 08/10/25 09:42 Mode of Arrival: EMS Source of Information: Patient and EMS Description of Symptoms (Recalled from ER Triage Doc. by RN): PATIENT PRESENTS TO ED FROM HOME WITH EMS FOR DIZZINESS THAT BEGAN THIS MORNING. PT REPORTS THIS IS AN ONGOING ISSUE AND WAS SEEN HERE THE OTHER DAY FOR THE SAME AND SENT TO [facility] FOR NEUROLOGY. EMS REPORTS FSBS WAS INITIALLY 46, GIVEN 15 G ORAL GLUCOSE WITH NO CHANGE, GIVEN 50 ML D10 IV AND PT'S SYMPTOMS ARE SOMEWHAT RESOLVING. EMS ALSO REPORTS PT WAS EXPERIENCING SOME WORD FINDING PROBLEMS PRIOR TO MEDICATIONS. History of Present Illness HPI narrative: Patient is a 45-year-old male with past medical history of obstructive sleep apnea largely healthy does not take any chronic medications who presents emergency department for evaluation of disequilibrium. Patient was seen in the emergency department recently underwent stroke protocol workup which was largely nonactionable and out of concern for posterior circulation problems with continuous disequilibrium he was sent to [facility]. [facility] underwent full evaluation including echocardiogram and MRI brain ultimately which was unremarkable and patient was cleared and discharged home recently and is to follow-up with ear nose and throat on Wednesday. Due to persistent symptoms which have gotten worse over the last 72 to 96 hours he presents here for continued evaluation. No trauma, no chest pain no abdominal pain reported. His disequilibrium started approximately 3 months ago and was mild and paroxysmal however over the last month and particularly over the last week has become more continuous, no modifying factors that occurs at rest and with movement, is not particularly positional, no new head trauma. No anticoagulants, no bleeding diathesis no other acute complaints at this time other than associated nausea. Patient took his meclizine which was prescribed to him for the first time this morning due to difficulty filling. Upon EMS arrival patient's blood sugar was in the mid 40s for which he got oral dextrose and his sugar improved to the 170s. He is still symptomatic with nonactionable blood sugar upon arrival. Please note that above description of symptoms, in this electronic medical record under categorization of recalled from ER triage doctor by RN are reflective of an initial nursing assessment, however, is not reflective of my full history and physical exam that was personally taken and clarified. Consequentially, this preceding description of symptoms, which may include the patient's categorized chief complaint in the EMR, do not reflect my personal clinical impression, and the ultimate description of history of present illness and patient stated complaints should be deferred to this section of the note. Unless stated otherwise or congruent with this section of the note, additional signs, symptoms, or incongruence should be interpreted as inaccurate with my clinical impression. Related Data Home Medications ?Medication ?Instructions ?Recorded ?Confirmed acetaminophen 325 mg capsule 325 mg PO QID PRN 3 06/11/25 (Tylenol) ibuprofen 200 mg tablet 200 mg PO Q6H PRN 09/23/23 0 06/11/25 cetirizine 10 mg capsule (All Day 10 mg PO DAILY PRN 0 06/15/24 06/11/25 Allergy (cetirizine)) fluticasone propionate 50 2 spray intranasal DAILY 06/11/25 mcg/actuation nasal spray,suspension Allergies Allergy/AdvReac Type Severity Reaction Status Date / Time No Known Allergies Allergy Verified 06/14/24 17:18 [facility] Disclaimer: The information contained in this section may have been updated after the patient was seen, as this information can be updated by other users. Medical History (Updated 08/10/25 @ 12:11 by Srinivas Chau MD) Intentional weight loss History of reverse total replacement of both shoulders Surgical History History of appendectomy Family History Other Coronary artery disease Hypertension RLS (restless legs syndrome) Social History Smoking Status: Never smoker alcohol intake: current alcohol intake frequency: a few times a week substance use type: denies use current occupational status: employed Travel in the last 8 weeks?: None household members: family housing: house marital status: Have you lived/traveled outside [place] in past 30 days?: No Contact w/someone who lives/traveled outside US past 30 days?: No Exposure to someone with infectious disease in past 14 days?: No Do you have a fever (greater than 100.4 F or 38 C)?: No Have you tested positive for COVID-19?: No Exposed to someone with COVID-19 in past 14 days?: No Do you have a sore throat?: No Do you have a cough?: No Do you have any weakness?: No Do you have any diarrhea?: No Are you experiencing any unusual bleeding?: No Do you have any muscle aches/pain?: No Do you have any abdominal pain?: No Are you experiencing loss of taste or smell?: No Other Medical History Have you received the Pneumonia Vaccine: No ROS Obtained: Yes Systems reviewed as appropriate & no additional complaints except as documented Physical Exam General General appearance: alert and in no apparent distress Head Head exam: atraumatic and normocephalic Eye Eye exam: Present PERRL and EOMI ENT ENT exam: Present mucous membranes moist Neck Neck exam: Present normal inspection Chest Chest inspection: Present normal inspection and symmetric chest wall rise Respiratory Respiratory exam: Present normal lung sounds bilaterally; Absent respiratory distress Cardiovascular Cardiovascular exam: Present regular rate and normal rhythm Abdominal Exam Abdominal exam: Present soft; Absent tenderness Extremities Exam Extremities exam: Present normal inspection Neurological Exam Neurological exam: Present alert, oriented X3 and CN II-XII intact; Absent motor sensory deficit Psychiatric Psychiatric exam: Present normal affect Skin Skin exam: Present warm and dry Medical Decision Making Medical Records Screening: Per USPSTF and CDC recommendations, given the prevalence of disease in our region, it is our hospital?s policy to screen for HIV and viral Hepatitis for all patients aged 18 and over and those with ongoing risk factors. Prabhu Inquiry Pt receiving controlled substance: No Vital Signs: 08/10/25 09:43 08/10/25 10:00 08/10/25 10:00 Temperature 98.9 F 98.9 F Temperature Source Oral Pulse Rate 88 83 Pulse Rate [Right] 83 Respiratory Rate 16 16 Blood Pressure 139/92 H 139/92 H Blood Pressure [Left Arm] 139/92 H Blood Pressure Mean Blood Pressure Mean [Left Arm] 107 02 Sat by Pulse Oximetry 100 100 100 Oxygen Delivery Method Room Air 08/10/25 10:01 08/10/25 10:07 08/10/25 11:00 Temperature Temperature Source Pulse Rate 89 90 Pulse Rate [Right] Respiratory Rate 15 13 Blood Pressure 128/96 H 128/96 H 124/81 Blood Pressure [Left Arm] Blood Pressure Mean Blood Pressure Mean [Left Arm] 02 Sat by Pulse Oximetry 100 97 98 Oxygen Delivery Method Room Air 08/10/25 11:30 Temperature Temperature Source Pulse Rate 69 Pulse Rate [Right] Respiratory Rate 13 Blood Pressure 116/81 Blood Pressure [Left Arm] Blood Pressure Mean 87 Blood Pressure Mean [Left Arm] 02 Sat by Pulse Oximetry 98 Oxygen Delivery Method Lab Data Lab Results 08/10/25 09:45: WBC 5.3 D, RBC 5.16, Hgb 15.1, Hct 43.4, MCV 84.1, MCH 29.3, MCHC 34.8, RDW 12.3, Plt Count 230, MPV 10.5 H, Neut % (Auto) 67.4, Lymph % (Auto) 23.6, Ripley % (Auto) 7.1, Eos % (Auto) 1.1, Baso % (Auto) 0.6, Neut # (Auto) 3.6, Lymph # (Auto) 1.3, Ripley # (Auto) 0.4, Eos # (Auto) 0.1, Baso # (Auto) 0.0, Sodium 137, Potassium 3.8, Chloride 104, Carbon Dioxide 23, Anion Gap 13.8, BUN 14, Creatinine 1.00, Estimated Creat Clear 108, Estimated GFR 80, Est GFR ( Amer) 97, Glucose 202 H, Calcium 8.9, Magnesium 1.7, Total Bilirubin 0.8, AST 23 D, ALT 26, Alkaline Phosphatase 59, Total Protein 6.9, Albumin 4.2, Globulin 2.7, Albumin/Globulin Ratio 1.6, TSH 3.21 D, Free T4 1.30 08/10/25 09:45 08/10/25 09:45 Orders (Tests/Meds): ED MEDICATIONS Generic Name Dose Route Start Last Admin Trade Name Freq PRN Reason Stop Dose Admin Sodium Chloride 10 ml 08/10/25 10:39 08/10/25 10:41 Sodium Chloride 0.9% 10ml Syr (Rad Only) IV 09/09/25 10:38 10 ml NEEDED PRN Administration Maintain IV Site Discontinued Medications Generic Name Dose Route Start Last Admin Trade Name Freq PRN Reason Stop Dose Admin Diazepam 2.5 mg 08/10/25 10:11 08/10/25 10:19 Diazepam 10mg/2ml Syringe IV 08/10/25 10:12 2.5 mg ONCE ONE Administration Lactated Ringer's 1,000 mls @ 999 mls/hr 08/10/25 10:11 08/10/25 10:21 Lactated Ringer's 1000 Ml Bag IV 08/10/25 11:11 999 mls/hr .Q1H1M ONE Administration Iopamidol 80 ml 08/10/25 10:39 08/10/25 10:40 Iopamidol-370 (76%);100ml Bottle IV 08/10/25 10:40 80 ml ONCE ONE Administration Sodium Chloride 50 ml 08/10/25 10:39 08/10/25 10:40 0.9 % Sodium Chloride 50 Ml Vial IV 08/10/25 10:40 50 ml ONCE ONE Administration ORDERS Category Date Time Status CT Venogram head Stat Cat Scan 08/10/25 10:[address] angio head Stat Cat Scan 08/10/25 10:[address] angio neck Stat Cat Scan 08/10/25 10:[address] head/brain wo con Stat Cat Scan 08/10/25 10:09 Completed CBC w/Auto Diff [Complete Blood Count Auto Diff] Stat Lab 08/10/25 09:45 Completed CMP [Comprehensive Metabolic Panel] Stat Lab 08/10/25 09:45 Completed Free T4 (Free Thyroxine) Stat Lab 08/10/25 09:45 Completed MG [Magnesium] Stat Lab 08/10/25 09:45 Completed TSH [Thyroid Stimulating Hormone] Stat Lab 08/10/25 09:45 Completed ECG Data Tracing #1: Independently interpreted by me rate is 86, rhythm is regular, axis is normal, no ST elevation in anatomical contiguous leads, QTc 399 Medical Decision Narrative: In summary patient is a 45-year-old male with past medical history described above presents emergency department for evaluation of disequilibrium. Patient is hemodynamically stable nontoxic-appearing upon arrival, afebrile. Patient has had diagnostic imaging of the head and neck as well as an MRI which ultimately has been nonactionable thus far and patient is pending ENT follow-up. His symptoms are worse over the last week however they are the same in quality. Making sure there is no dynamic changes to his vasculature CTA of the head and neck will be performed. CTV will be obtained given that it has not been investigated and venous sinus thrombosis is on the differential although unlikely. His ears have tympanosclerosis on the left no effusions no erythema. Fertile-Hallpike is negative bilaterally. I suspect that patient has an inner ear problem or vestibular neuritis versus labyrinthitis given that he has tenderness in his left ear. Initial inventions include diazepam. With a speck to his mild hypoglycemia at home he was never altered, his sugar returned to normal after oral p.o. intake he is not on any antihyperglycemics he does not appear septic to me or have any secondary cause of his hypoglycemia no evidence for decompensated hypothyroidism with normal vital signs normal blood pressure. I suspect that his mild hypoglycemia was secondary to no p.o. intake this morning and is an incidental finding. However fingerstick blood glucose will be repeated 30 minutes x 3 at a minimum to ensure no persistent hypoglycemia for further investigation. 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 It turns out on their charting patient's tenderness is not acute and he has a longstanding history of bilateral tenderness was optimized from an LDL standpoint with statin. Formal read Noncon head no acute intracranial abnormality, CTA head and neck nonactionable no critical stenosis no acute thrombosis CT venogram unremarkable. Multiple repeat blood glucose is nonactionable. I do not suspect any thing sinister that is causing his hypoglycemia. Upon repeat evaluation patient had symptomatic improvement was ambulatory bedside. Given this it was felt that all emergencies were essentially ruled out and patient is appropriate for outpatient management at this time we will continue to take his meclizine and follow-up with ENT on Wednesday. Critical Care Critical Care Time Critical Care Time: No
[2025-08-10 10:19] LABS: Hematocrit 43.4 % (42.0-52.0); Hemoglobin 15.1 g/dL (14.1-18.0); Immature Granulocytes % 0.2 %; Mean Corpuscular HGB Conc 34.8 g/dL (31.8-35.4); Mean Corpuscular Hemoglobin 29.3 pg (27.0-31.2); Mean Corpuscular Volume 84.1 fl (80-94); Nucleated Red Blood Cells % 0 %; Platelet Count 230 K/mm3 (142-424); Red Blood Count 5.16 M/mm3 (4.60-6.20); Red Cell Distribution Width-SD 37.5 fL; White Blood Count 5.3 K/mm3 (4.8-10.8)
[2025-08-10] MEDS: diazePAM 10MG/2ML SYRINGE 2.5 MG IV (10:19)
[2025-08-10] MEDS: LACTATED RINGERS 1000ML 1,000 ML 999 ML IV (10:21)
[2025-08-10 10:26] LABS: Alanine Aminotransferase 26 U/L (12-78); Albumin Level 4.2 g/dl (3.5-5.0); Albumin/Globulin Ratio 1.6 (1.1-1.8); Alkaline Phosphatase 59 U/L (38-126); Anion Gap 13.8 mEq/L (5-15); Aspartate Amino Transferase 23 U/L (17-59); Bilirubin,Total 0.8 mg/dl (0.2-1.3); Blood Urea Nitrogen 14 mg/dl (9-20); Calcium 8.9 mg/dl (8.4-10.2); Carbon Dioxide 23 mmol/L (22.0-30.0); Chloride 104 mmol/L (98-107); Creatinine Clearance Estimated 108 mL/min (50-200); Creatinine,Serum 1.00 mg/dl (0.66-1.25); Estimated Glomerular Filt Rate 80 ml/min (>60); GFR (African American) 97 ML/MIN (>60); Globulin 2.7 g/dL (1.3-3.2); Glucose 202 mg/dl (74-100); Potassium 3.8 mmoL/L (3.5-5.1); Sodium 137 mmol/L (136-145); Total Protein,Serum 6.9 g/dl (6.3-8.2)
--- NOTE | 2025-08-10 10:37 | PC.NURSE ---
Spoke with [facility] Records to get a copy of the patients D/C summary sent to our ER per Dr. Chau's request.
[2025-08-10] MEDS: IOPAMIDOL-370 (76%);100ML BOTTLE 80 ML IV (10:40)
[2025-08-10] MEDS: 0.9 % SODIUM CHLORIDE 50 ML VIAL IV (10:40)
[2025-08-10] MEDS: SODIUM CHLORIDE 0.9% 10ML SYR (RAD ONLY) 10 ML IV (10:41)
[2025-08-10 10:56] LABS: Thyroid Stimulating Hormone 3.21 uIU/mL (0.465-4.68)
[2025-08-10 10:57] LABS: Magnesium 1.7 mg/dl (1.6-2.3)
[2025-08-10 11:14] LABS: Free T4 (Free Thyroxine) 1.30 ng/dl (0.78-2.19)
== END 2025-08-10 12:30 | disposition home or self-care (01) ==
PROVIDERS: Emergency Provider Emergency Medicine; PCP Nurse Practitioner Family
DX: R42 Dizziness and giddiness (principal)
CPT/HCPCS: 70450; 70496; 70498; 80053; 83735; 84439; 84443; 85025; 93005; 96365; 96375; 99285; J3360; J7120; Q9967

== ENCOUNTER 2025-08-14 13:22 | Outpatient (CLI) | payer OTHER, SELFPAY ==
--- OUTSIDE RECORDS SUMMARY | 2025-08-08 06:36 | XMS_ITS | Encounter Summary ---
Author Organization [facility] Address [address] [place] [id number] Care Team Providers Care Spot Machine Operator Name Role Phone Unavailable Primary Care Provider Unavailabl e Reason for Referral * Physical Therapy (Routine) - Closed Specialty Diagnoses / Procedures Referred By Contac t Referred To Contact Physical Therapy Diagnoses Benign paroxysmal positional vertigo due to bilateral vestibular disorder Procedures CA OFFICE/OUTPATIENT NEW MODERATE MDM 45 MINUTES Jackie Ndiaye MD [address] [place], [place] [address] [place] [address] Phone: tel: fax: [address] [place] [address] Phone: tel: fax: Referral ID Status Reason Start Date Expiration Date V isits Requested Visits Authorized [id number] Closed Specialty Services Required 08/09/2025 11/08/2026 1 1 Reason for Visit * Auth/Cert Specialty Diagnoses / Procedures Referred By Contac t Referred To Contact Diagnoses Cerebrovascular Accident ATAXIA Referral ID Status Reason Start Date Expiration Date Visits Re quested Visits Authorized [id number] 1 1 Encounter Details Date Type Department Care Team (Late st Contact Info) Description 08/08/2025 6:36 AM EDT - 08/09/2025 3:22 PM EDT Hospital Encounter [address] [id number] Chip Adams MD [address] [place] [address] 4[address] [place] [address] Nicki Kelly DO [address] [place] [id number] Jackie Ndiaye MD [address] [facility] [address] [place] [address] Benign paroxysmal positional vertigo due to bilateral [...] care, and heating? Not very hard 08/08/2025 [facility] of Occupat ional Health - Occupational Stress [...] things needed for daily living? No 08/08/2025 [facility] Utilities Answer Date Recorded In the past 12 months has th e Education Everytime, gas, oil, or water company threatened to [...] GED or equivalent No 08/08/2025 Preferred Language Nigerian 08/08/2025 PHQ-2 Answer Date Recorded Patient Health [...] 8:34 AM EDT Mercedez Roland RN * [place] Suicide Severity Rating Scale (Screener/Recent Self-Report) Question [...] visit. Date of 1980 Social Security Number [id number] [place] [address] Alevism None Marital Status Admission Date 08/08/2025 Admission Type Urgent Admitting Provider Attending Provider Jackie Ndiyae MD Department, Room/Bed [facility] 3H, S383/1 Discharge Date Discharge Disposition Home or Self Care Discharge Destination Attending Provider: Jackie Ndiaye MD Allergies: No Known Allergies Isolation: None Infection: None Code Status: CPR Ht: -- Wt: 82.1 kg (181 lb) Admission Cmt: None Principal Problem: BPPV (benign paroxysmal positional vertigo) [H81.10] Active Insurance as of 08/08/2025 Primary Coverage Payor Plan Insurance Group Employer/Plan Group [facility] PLAN [facility] [id number] Payor Plan Address Payor Plan Phone Number Payor Plan Fax Number Effective Dates [address] 05/25/2011 - None Entered 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 Please contact [address] at [phone] during normal business hours. Verbal Order Mode: Verbal with readback Authorizing Provider: Jackie Ndiaye MD Authorizing Provider's Order Entered By: Susan Weiss RN 08/09/2025 2:50 PM Electronically signed by: Insurance Information [facility] COMMUNITY PLAN [facility], [facility] Phone: -- Subscriber: Darci Campos Subscriber#: [id number] Group#: [id number] Precert#: -- Authorization#: -- Effective Date: -- History & Physical Jackie Ndiaye MD at 08/08/25 07 [facility] Medicine Services HISTORY AND PHYSICAL Patient Name: Darci Campos : 1980 Primary Care Physician: No primary care provider on file. Date of admission: 08/08/2025 Subjective Subjective Chief Complaint: Dizziness, difficulty walking HPI: Darci Campos is a 45 y.o. male with no known past medical history, who presented to [facility] for acute onset dizziness that began [...] past medical history, who presented to [facility] on 08/07 with acute onset dizziness that [...] Summary Jackie Ndiaye MD at 08/09/25 0911 [facility] Medicine Services DISCHARGE SUMMARY Patient [...] past medical history, who presented to [facility] on 08/07 with acute onset dizziness that began on 08/06 that has persisted. CTA head/neck and CT head were read as unremarkable. He was transferred here for stroke neurology evaluation. MRI brain negative for CVA. ECHO prelim okay and stroke neuro COIL INSPECTOR is okay w DC home w prelim [...] MD 08/08/2025 5:06 PM EDT Workstation ID: [id number] CT Outside Head Result Date: 08/08/2025 This [...] minutes on this discharge activity which included: eynq-vz-yesrymfqmykkj with the patient, reviewing the data in the system, coordination of the care with the nursing staff as well as consultants, documentation, and entering orders. [id number] * Jackie Ndiaye MD - 08/09/2025 9:11 AM EDT Images from the original note were not included. [facility] Medicine Services DISCHARGE SUMMARY Patient [...] past medical history, who presented to [facility] on 08/07 with acute onset dizziness that began on 08/06 that has persisted. CTA head/neck and CT head were read as unremarkable. He was transferred here for stroke neurology evaluation. MRI brain negative for CVA. ECHO prelim okay and stroke neuro COIL INSPECTOR is okay w DC home w prelim [...] MD 08/08/2025 5:06 PM EDT Workstation ID: [id number] CT Outside Head Result Date: 08/08/2025 This [...] minutes on this discharge activity which included: qtih-at-lgnzvvxzfvhmu with the patient, reviewing the data in the system, coordination of the care with the nursing staff as well as consultants, documentation, and entering orders. [1] No Known Allergies * Miguelina Cohen, CF-WASHER AND CRUSHER TENDER - 08/08/2025 9:08 AM EDT Acute Care - Speech Language Pathology Initial Evaluation/Discharge [facility] Cognitive-Communication Evaluation Patient Name: Darci Campos : 1980 Today's Date: 08/08/2025 Admit Date: 08/08/2025 Visit Dx: No diagnosis found. Problem List[1] History reviewed. No pertinent past medical history. History reviewed. No pertinent surgical history. WASHER AND CRUSHER TENDER Recommendation and Plan Recommended discharge disposition is based on the functional assessment performed by PT/OT/Speech therapy (as applicable) and may not reflect the medical necessity determined by your provider or services covered by an individual patient's insurance plan or patient resource. WASHER AND CRUSHER TENDER Diagnosis: functional speech/language skills, functional cognitive- linguistic skills (08/08/25844) WASHER AND CRUSHER TENDER Diagnosis Comments: Pt reports that he is at baseline level of function. No concerns noted on eval. WASHER AND CRUSHER TENDER to sign off (08/08/25844) SLC Criteria for Skilled Therapy Interventions Met: no problems identified which require skilled intervention (08/08/25844) Anticipated Discharge Disposition (WASHER AND CRUSHER TENDER): No further WASHER AND CRUSHER TENDER services warranted (08/08/25844) Therapy Frequency (WASHER AND CRUSHER TENDER [facility] evaluation only (08/08/25844) WASHER AND CRUSHER TENDER EVALUATION (Last 72 Hours) WASHER AND CRUSHER TENDER SLC Evaluation Row Name 08/08/25844 Communication Assessment/Intervention Document Type discharge evaluation/summary -SM Subjective Information no complaints -SM Patient Observations alert;cooperative -SM Patient Effort good -SM Symptoms Noted During/After Treatment none -SM General Information Patient Profile Reviewed yes -SM Pertinent History Of Current Problem No significant past medical hx. Admit from [facility] for acute onset dizziness and ataxic [...] 100%;with unfamiliar listener - Cognitive Assessment Intervention- WASHER AND CRUSHER TENDER Cognitive Function (Cognition) WFL - WASHER AND CRUSHER TENDER Evaluation Clinical Impressions WASHER AND CRUSHER TENDER Diagnosis functional speech/language skills;functional cognitive-linguistic skills - WASHER AND CRUSHER TENDER Diagnosis Comments Pt reports that he is at baseline level of function. No concerns noted on eval. WASHER AND CRUSHER TENDER to sign off - SLC Criteria for Skilled Therapy Interventions Met no problems identified which require skilled intervention - Functional Impact no impact on function - Recommendations Therapy Frequency (WASHER AND CRUSHER TENDER SLC) evaluation only - Anticipated Discharge Disposition (WASHER AND CRUSHER TENDER) No further WASHER AND CRUSHER TENDER services warranted - User Benedict (r) = Recorded By, (t) = Taken By, (c) = Cosigned By Initials Name Effective Dates Miguelina Tran MS CF-WASHER AND CRUSHER TENDER 03/29/25 - EDUCATION The patient has been educated in the following areas: Cognitive Impairment Communication Impairment. Time Calculation: Time Calculation- WASHER AND CRUSHER TENDER Row Name 08/08/25 0908 Time Calculation- WASHER AND CRUSHER TENDER WASHER AND CRUSHER TENDER Start Time 0845 - WASHER AND CRUSHER TENDER Received On 08/08/25 - Untimed Charges 59542-DY Eval Speech and Production w/ Language Minutes 40 -SM Total Minutes Untimed Charges Total Minutes 40 -SM Total Minutes 40 -SM User Benedict (r) = Recorded By, (t) = Taken By, (c) = Cosigned By Initials Name Provider Type Miguelina Tran MS CF-WASHER AND CRUSHER TENDER Speech and Language Pathologist Therapy Charges for Today Code Description Service Date Service Provider Modifiers Qty [id number] HC ST EVAL SPEECH AND PROD W LANG 3 08/08/2025 Miguelina Cohen MS CF-WASHER AND CRUSHER TENDER GN 1 WASHER AND CRUSHER TENDER Discharge Summary Anticipated Discharge Disposition (WASHER AND CRUSHER TENDER): No further WASHER AND CRUSHER TENDER services warranted MS JESUS GironWASHER AND CRUSHER TENDER 08/08/2025 [1] Patient Active Problem List Diagnosis [...] encounter Progress Notes * [place] Randee Moe, COIL INSPECTOR - 08/09/2025 8:47 AM EDT Images from [...] in upper and lower extremities. Coordination Right: Nqdepc-rx-nrcl normal.Left: Wkjups-cy-fkuy normal. Physical Exam Vitals reviewed. Constitutional: Appearance: [...] MD 08/08/2025 5:06 PM EDT Workstation ID: [id number] -CTH wo on 08/07/2025 images from outside [...] significant past medical history. He presented to [facility] on the evening of 08/07/2025 with [...] of care and further stroke workup. Antiplatelet CORONER TRANSPORT TECHNICIAN: none Anticoagulant CORONER TRANSPORT TECHNICIAN: none Dizziness and ataxic gait, improving [...] significant past medical history. He presented to [facility] on the evening of 08/07/2025 with [...] of care and further stroke workup. Antiplatelet CORONER TRANSPORT TECHNICIAN: None Anticoagulant CORONER TRANSPORT TECHNICIAN: None #Dizziness and gait instability -Etiology [...] needed -Activity as tolerated, fall risk precautions -PT/OT/WASHER AND CRUSHER TENDER evaluation #Essential hypertension -Normal blood pressure goals -Primary team to manage Stroke will continue to follow. Please call for any further questions or concerns Dread Justin MD, Msc, PhD Vascular Neurologist [facility] documented in this encounter H&P Notes * Jackie Ndiaye MD - 08/08/2025 7:22 AM EDT Images from the original note were not included. [facility] Medicine Services HISTORY AND PHYSICAL Patient Name: Darci Campos : 1980 Primary Care Physician: No primary care provider on file. Date of admission: 08/08/2025 Subjective Subjective Chief Complaint: Dizziness, difficulty walking HPI: Darci Campos is a 45 y.o. male with no known past medical history, who presented to [facility] for acute onset dizziness that began [...] past medical history, who presented to [facility] on 08/07 with acute onset dizziness that [...] 8:31 AM EDTAssociated Order(s): IP CONSULT TO GANG KNIFE FISH CHOPPER Chart review for nursing educator consult. At the time of this [...] significant past medical history. He presented to [facility] on the evening of 08/07/2025 with [...] neglect. No left-sided hemispatial neglect. Coordination Right: Bmfjsm-yb-ohff normal. Weap-je-vtpc normal.Left: Xhxlcp-wd-wfgq normal. Hclg-fm-ivkc normal. Gait Normal gait. Not observed. Physical [...] encounter. PRNs- Functional Status Prior to Current Stroke/[place] Score: 0 NIH Stroke Scale Time: 22:05 [...] significant past medical history. He presented to [facility] on the evening of 08/07/2025 with [...] of care and further stroke workup. Antiplatelet CORONER TRANSPORT TECHNICIAN: None Anticoagulant CORONER TRANSPORT TECHNICIAN: None Dizziness Differential diagnosis includes posterior [...] cocktail -Activity as tolerated, fall risk precautions -PT/OT/WASHER AND CRUSHER TENDER evaluation -Please send OSH radiology disc down [...] Documentation Taken 08/09/2025 0200 by Jolene Zambrano RNfire prevention officer Interventions: care clustered position adjusted pillow support provided quiet environment facilitated Taken 08/09/2025 0000 by Jolene Zambrano RNfire prevention officer Interventions: care clustered position adjusted pillow support provided quiet environment facilitated Taken 08/08/20252199 by Jolene Zambrano RNfire prevention officer Interventions: care clustered position adjusted pillow support provided quiet environment facilitated Taken 08/08/20251999 by Jolene Zambrano RNfire prevention officer Interventions: care clustered position adjusted pillow support [...] in chair without complaint. NIH performed by bellows charger assembler -pt tolerating diet, cont to monitor * Mercedez Martinez, RN - 08/08/2025 11:40 AM EDT This RN not NIH certified. school guidance counselor alerted at 0700 to assist with NIH [...] outpatient therapy services * Miguelina Cohen, MS CF-WASHER AND CRUSHER TENDER - 08/08/2025 9:07 AM EDT Goal Outcome Evaluation: Plan of Care Reviewed With: patient Anticipated Discharge Disposition (WASHER AND CRUSHER TENDER): No further WASHER AND CRUSHER TENDER services warranted WASHER AND CRUSHER TENDER Diagnosis: functional speech/language skills, functional cognitive- linguistic skills (08/08/25844) WASHER AND CRUSHER TENDER Diagnosis Comments: Pt reports that he is at baseline level of function. No concerns noted on eval. WASHER AND CRUSHER TENDER to sign off (08/08/25844) documented in this encounter Miscellaneous Notes * Case Management/Social Work - Susan Weiss RN - 08/09/2025 2:52 PM EDT Continued Stay Note Chadd Patient Name: Darci Campos Today's Date: 08/09/2025 Admit Date: 08/08/2025 Plan: home Discharge Plan Row Name 08/09/25 1610 Plan Plan Comments Outpt PT order has been faxed to [address] is the only PT in [...] Bed Mobility Bed Mobility supine-sit;sit-supine -KR Supine-Sit Toole (Bed Mobility) standby assist -KR Sit-Supine [place] (Bed Mobility) standby assist -KR Comment, (Bed Mobility) Radford-Hallpike performed and negative for nystagmus and vertiginous sx bilaterally. Orthostatics also assessed; BP sup 134/92; BP sit 138/100; BP stand 145/99. -KR Row Name 08/09/25 1026 Bed-Chair Transfer Bed-Chair [place] (Transfers) standby assist -KR Row Name 08/09/25 1026 Sit-Stand Transfer Sit-Stand [place] (Transfers) standby assist -KR Comment, (Sit-Stand Transfer) 1x from chair, 2x from bed -KR Row Name 08/09/25 1026 Gait/Stairs (Locomotion) [place] Level (Gait) contact guard -KR Distance in [...] PT) sit to supine;supine to sit -KR [place] Level/Cues Needed (Bed Mobility Goal 1, PT) independent -KR Time Frame (Bed Mobility Goal 1, PT) short term goal (STG);5 days -KR Progress/Outcomes (Bed Mobility Goal 1, PT) goal met -KR Row Name 08/09/25 1129 Transfer Goal 1 (PT) Activity/Assistive Device (Transfer Goal 1, PT) xfq-iz-edmhq/dkvfc-iv-dux;env-qc-wbfuk/efvru-uc-nzo-KR [place]ole Level/Cues Needed (Transfer Goal 1, PT) independent -KR Time Frame (Transfer Goal 1, PT) care home goal (LTG);1 week -KR Progress/Outcome (Transfer Goal 1, PT) goal revised this -KR Row Name 08/09/25 112 Gait Training Goal 1 (PT) Activity/Assistive Device (Gait Training Goal 1, PT) gait (walking locomotion);assistive device use-KR [place] Level (Gait Training Goal 1, PT) independent -KR Distance (Gait Training Goal 1, PT) 350 -KR Time Frame (Gait Training Goal 1, PT) care home goal (LTG);1 week -KR Row Name 08/09/25 [...] Nurse Physical Therapy Education Title: PT OT WASHER AND CRUSHER TENDER Therapies (In Progress) Topic: Physical Therapy (In [...] Frequency (PT): daily Progress: improving Outcome Evaluation: Radford Hallpike performed. Pt negative for nystagmus and [...] PT Received On 08/09/25 -KR Timed Charges 62777 - PT Therapeutic Activity Minutes 23 -KR [...] Description Service Date Service Provider Modifiers Qty [id number] HC PT THERAPEUTIC ACT EA 15 MIN 08/09/2025 Irma Joyner, PT GP 2 [id number] HC PT RE-EVAL ESTABLISHED PLAN 2 08/09/2025 [...] note were not included. Discharge Planning Assessment [facility] Patient Name: Darci Campos Today's Date: [...] Plan Comments Pt lives with his in [facility]. He was independent with ADLs and mobilityprior to admit. Owns a cpap but no other dme. At this time his plan for discharge is to retun home.Cm will follow for dc needs Final Discharge Disposition Code 01 - home or self-care Continued Care and Services - Admitted Since 08/08/2025 No active coordination exists. Demographic Summary Row Name 08/08/25 114 General Information Admission Type inpatient Referral Source physician Reason for Consult discharge planning Preferred Language Nigerian Contact Information Permission Granted to Share Info With family/designee Contact Information Ondina Campos Functional Status Row Name 08/08/25 1144 Functional Status Usual Activity Tolerance good Current [...] household mobility;ADL's;transfer CG for his 9 yo [facility] - Existing Precautions/Restrictions fall - Barriers to [...] Bed Mobility Bed Mobility scooting/bridging;supine-sit - Scooting/Bridging Toole (Bed Mobility) contact guard - Supine-Sit [place] (Bed Mobility) contact guard - Assistive Device (Bed Mobility) bed rails;head of bed elevated - Comment, (Bed Mobility) CGA for safety - Row Name 08/08/25 1053 Transfers Transfers sit-stand transfer;bed-chair transfer - Comment, (Transfers) VC's for hand placement and sequencing. - Row Name 08/08/25 1053 Bed-Chair Transfer Bed-Chair [place]ole (Transfers) verbal cues;minimum assist (75% patient effort) - Assistive Device (Bed-Chair Transfers) other (see comments) B UE support - Row Name 08/08/25 105 Sit-Stand Transfer Sit-Stand [place]ole (Transfers) minimum assist (75% patient effort);verbal cues - Assistive Device (Sit-Stand Transfers) other (see comments) B UE support - Row Name 08/08/25 105 Activities of Daily Living BADL Assessment/Intervention lower body dressing;upper body dressing;grooming - Row Name 08/08/25 105 Lower Body Dressing Assessment/Training Toole Level (Lower Body Dressing) minimum assist (75% patient effort);lower body dressing skills - Row Name 08/08/25 105 Upper Body Dressing Assessment/Training [place] Level (Upper Body Dressing) don;pajama/robe;minimum assist (75% patient effort) - Position (Upper Body Dressing) edge of bed sitting - Row Name 08/08/25 105 Grooming Assessment/Training [place]ole Level (Grooming) grooming skills;set up - Position [...] (OT) Activity/Assistive Device (Transfer Goal 1, OT) xvf-jq-diktk/neiip-lq-cps;rnk-ad-ikywu/hcgbw-pj-lbx;toilet;walker, rolling - [place]ole Level/Cues Needed (Transfer Goal 1, OT) contact guard required - Time Frame (Transfer Goal 1, OT) buttermaker helper goal (LTG);10 days - Progress/Outcome (Transfer Goal 1, OT) goal ongoing - Row Name 08/08/25 1056 Dressing Goal 1 (OT) Activity/Device (Dressing Goal 1, OT) lower body dressing - [place]ole/Cues Needed (Dressing Goal 1, OT) standby assist - Time Frame (Dressing Goal 1, OT) short term goal (STG);5 days - Progress/Outcome (Dressing Goal 1, OT) goal ongoing - Row Name 08/08/25 1056 Toileting Goal 1 (OT) Activity/Device (Toileting Goal 1, OT) adjust/manage clothing;perform perineal hygiene;commode;grabbar/safety frame - [place]ole Level/Cues Needed (Toileting Goal 1, OT) standby assist - Time Frame (Toileting Goal 1, OT) care home goal (LTG);10 days - Progress/Outcome (Toileting Goal [...] = Cosigned By Initials Name Provider Type Ilenaa Ron OT Occupational Therapist Outcome Measures Row [...] Row Name 08/08/25 1100 08/08/25 0803 Modified [place] Scale Pre-Stroke Modified Deanna Scale 6 - Unable to determine (UTD) from the medical record documentation -LC -- Modified [place] Scale 3 - Moderate disability. Requiring some help, but able to walk without assistance. - 0 - No Symptoms at all. -AC Row Name 08/08/25 1100 Functional Assessment Outcome Measure Options AM-PAC 6 Clicks Daily Activity (OT);Modified [place] - User Benedict (r) = Recorded By, (t) = Taken By, (c) = Cosigned By Initials Name Provider Type [place] Mcintyre, FR[place] Registered Nurse Ileana Ron OT Occupational Therapist Mercedez Newsome RN Registered Nurse Occupational Therapy Education Title: PT OT WASHER AND CRUSHER TENDER Therapies (In Progress) Topic: Occupational Therapy (In [...] Description Service Date Service Provider Modifiers Qty [id number] HC-OT EVAL LOW COMPLEXITY 5 08/08/2025 Ileana [...] Bed Mobility Bed Mobility scooting/bridging;supine-sit -AB Scooting/Bridging Toole (Bed Mobility) contact guard;verbal cues -AB Supine-Sit Toole (Bed Mobility) contact guard;verbal cues -AB Assistive Device (Bed Mobility) bed rails -AB Comment, (Bed Mobility) No nystagmus seen w/ transition to sitting. -AB Row Name 08/08/25 1147 Transfers Comment, (Transfers) Cues for hand placement and sequencing. Pt reports feeling like he is on a boat with all standing mobility. -AB Row Name 08/08/25 1147 Sit-Stand Transfer Sit-Stand Toole (Transfers) minimum assist (75% patient effort);verbal cues;2 person assist -AB Assistive Device (Sit-Stand Transfers) other (see comments) MASTER ELECTRICIAN -AB Row Name 08/08/25 1147 Gait/Stairs (Locomotion) [place]ole Level (Gait) minimum assist (75% patient effort);2 person assist;verbal cues -AB Assistive Device (Gait) other (see comments) MASTER ELECTRICIAN -AB Patient was able to Ambulate yes -AB Distance in Feet (Gait) 100 +100 -AB Deviations/Abnormal Patterns (Gait) bilateral deviations;base of support, narrow;efe decreased;gait speed decreased;stride length decreased -AB Bilateral Gait Deviations heel strike decreased -AB Toole Level (Stairs) unable to assess -AB Comment, [...] PT) sit to supine;supine to sit -AB Toole Level/Cues Needed (Bed Mobility Goal 1, PT) independent -AB Time Frame (Bed Mobility Goal 1, PT) short term goal (STG);5 days -AB Row Name 08/08/25 1150 Transfer Goal 1 (PT) Activity/Assistive Device (Transfer Goal 1, PT) yyf-sl-varwu/ltjpi-ds-kkt;znq-db-orlyg/mqmyh-rw-ayv;walker, rolling -AB Toole Level/Cues Needed (Transfer Goal 1, PT) standby assist -AB Time Frame (Transfer Goal 1, PT) care home goal (LTG); days -AB Row Name 08/08/25 115 Gait Training Goal 1 (PT) Activity/Assistive Device (Gait Training Goal 1, PT) gait (walking locomotion);assistive device use;walker, rolling -AB Toole Level (Gait Training Goal 1, PT) standby assist -AB Distance (Gait Training Goal 1, PT) 350 -AB Time Frame (Gait Training Goal 1, PT) buttermaker helper goal (LTG); days -AB Row Name 08/08/25 1153 Therapy Assessment/Plan (PT) Planned Therapy Interventions (PT) [...] 08/08/25 1100 Modified Deanna Scale Pre-Stroke Modified [place] Scale 6 - Unable to determine (UTD) from the medical record documentation -AB 6 - Unable to determine (UTD) from the medical record documentation -LC Modified Deanna Scale 3 - Moderate disability. Requiring some help, but able to walk without assistance. -AB 3 - Moderate disability. Requiring some help, but able to walk without assistance. -LC Row Name 08/08/25 0803 Modified [place] Scale Modified Deanna Scale 0 - No Symptoms at all. -AC Row Name 08/08/25 1154 08/08/25 1100 Functional Assessment Outcome Measure Options AM-PAC 6 Clicks Basic Mobility (PT) -AB AM-PAC 6 Clicks Daily Activity (OT);Modified [place] -LC User Benedict (r) = Recorded By, (t) = Taken By, (c) = Cosigned By Initials Name Provider Type [place], [place] Registered Nurse Ileana Ron, CYNDEE Occupational Therapist MG Mercedez Martinez RN Registered Nurse Julieta Lora, PT Physical Therapist Physical Therapy Education Title: PT OT WASHER AND CRUSHER TENDER Therapies (In Progress) Topic: Physical Therapy (In [...] Description Service Date Service Provider Modifiers Qty [id number] PT EVAL LOW COMPLEXITY 4 08/08/2025 Julieta Reese, PT GP 1 PT G-Codes Outcome Measure Options: AM-PAC 6 Clicks Basic Mobility (PT) AM-PAC 6 Clicks Score (PT): 19 AM-PAC 6 Clicks Score (OT): 19 Modified [place] Scale: 3 - Moderate disability. Requiring some [...] saline was administered. us Bianca C Banegas COIL INSPECTOR CV ECHO ORDERABLES Final Res ult * MRI Brain Without Contrast (08/08/2025 4:54 PM EDT) Anatomical Region Laterality Modality Head, Neck N/A Magnetic Resonan ce 08/08/2025 5:00 PM EDT Impressions 08/08/2025 5:06 PM EDT Impression: No acute intracranial finding. Electronically Signed: Lorenzo Saravia MD 08/08/2025 5:06 PM EDT Workstation ID: [id number] Narrative 08/08/2025 5:06 PM EDT MRI BRAIN [...] MD 08/08/2025 5:06 PM EDT Workstation ID: [id number] Bianca Banegas COIL INSPECTOR IMG MRI ORDERABLES Final Res ult * Fentanyl, Urine - Urine, Clean Catch (08/08/2025 8:58 AM EDT) Fentanyl, Urine Negative Negative 08/08/2025 10:12 AM EDT [facility] Urine Urine specimen obtained by clean catch procedure / Unknown Collection / Unknown 08/08/2025 8:58 AM EDT 08/08/2025 9:07 AM EDT Narrative [facility] - 08/08/2025 10:12 AM EDT Negative [...] Jackie Ndiaye MD URINE ORDERABLES Final Result [facility]
[address] [place] [address], * (ABNORMAL) Urine Drug Screen - Urine, Clean Catch (08/08/2025 8:58 AM EDT) THC, Screen, Urine Negative Negative 2024 9:19 AM EDT [facility] Phencyclidine (PCP), Urine Negative Negative 08/08/2025 9:19 AM EDT [facility] Cocaine Screen, Urine Negative Negative 08/08/2025 9:19 AM EDT [facility] Methamphetamine, Ur Negative Negative 08/08/2025 9:19 AM EDT [facility] Opiate Screen Negative Negative 08/08/2025 9:19 AM EDT [facility] Amphetamine Screen, Urine Negative Negative 08/08/2025 9:19 AM EDT [facility] Benzodiazepine Screen, Urine Positive(A) Negative 08/08/2025 9:19 AM EDT [facility] Tricyclic Antidepressants Screen Negative Negative 08/08/2025 9:19 AM EDT [facility] Methadone Screen, Urine Negative Negative 08/08/2025 9:19 AM EDT [facility] Barbiturates Screen, Urine Negative Negative 08/08/2025 9:19 AM EDT [facility] Oxycodone Screen, Urine Negative Negative 08/08/2025 9:19 AM EDT [facility] Buprenorphine, Screen, Urine Negative Negative 08/08/2025 9:19 AM EDT [facility] Urine Urine specimen obtained by clean catch procedure / Unknown Collection / Unknown 08/08/2025 8:58 AM EDT 08/08/2025 9:07 AM EDT Narrative [facility] - 08/08/2025 9:19 AM EDT Cutoff [...] Jackie Ndiaye MD URINE ORDERABLES Final Result [facility]
[address] [place] [address], * CT Outside Neck (08/08/2025 8:56 AM EDT) Narrative SYSTEMGENERATED, DOCUMENTATION - 08/08/2025 8:56 AM EDT This procedure was auto-finalized with no dictation required. us Radiant Outside Films IMG CT ORDERABLES Final Re sult * CBC Auto Differential (08/08/2025 7:36 AM EDT) WBC 5.70 3.40 - 10.80 10*3/mm3 08/08/2025 8:01 AM EDT [facility] RBC 5.24 4.14 - 5.80 10*6/mm3 08/08/2025 8:01 AM EDT [facility] Hemoglobin 15.1 13.0 - 17.7 g/dL 08/08/2025 8:01 AM EDT [facility] Hematocrit 45.6 37.5 - 51.0 % 08/08/2025 8:01 AM EDT [facility] MCV 87.0 79.0 - 97.0 fL 08/08/2025 8:01 AM EDT [facility] MCH 28.8 26.6 - 33.0 pg 08/08/2025 8:01 AM EDT [facility] MCHC 33.1 31.5 - 35.7 g/dL 08/08/2025 8:01 AM EDT [facility] RDW 13.0 12.3 - 15.4 % 08/08/2025 8:01 AM EDT [facility] RDW-SD 40.9 37.0 - 54.0 fl 08/08/2025 8:01 AM EDT [facility] MPV 10.0 6.0 - 12.0 fL 08/08/2025 8:01 AM EDT [facility] Platelets 220 140 - 450 10*3/mm3 08/08/2025 8:01 AM EDT [facility] Neutrophil % 57.2 42.7 - 76.0 % 08/08/2025 8:01 AM EDT [facility] Lymphocyte % 30.2 19.6 - 45.3 % 08/08/2025 8:01 AM EDT [facility] Monocyte % 9.8 5.0 - 12.0 % 08/08/2025 8:01 AM EDT [facility] Eosinophil % 1.9 0.3 - 6.2 % 08/08/2025 8:01 AM EDT [facility] Basophil % 0.7 0.0 - 1.5 % 08/08/2025 8:01 AM EDT [facility] Immature Grans % 0.2 0.0 - 0.5 % 08/08/2025 8:01 AM EDT [facility] Neutrophils, Absolute 3.26 1.70 - 7.00 10*3/mm3 08/08/2025 8:01 AM EDT [facility] Lymphocytes, Absolute 1.72 0.70 - 3.10 10*3/mm3 08/08/2025 8:01 AM EDT [facility] Monocytes, Absolute 0.56 0.10 - 0.90 10*3/mm3 08/08/2025 8:01 AM EDT [facility] Eosinophils, Absolute 0.11 0.00 - 0.40 10*3/mm3 08/08/2025 8:01 AM EDT [facility] Basophils, Absolute 0.04 0.00 - 0.20 10*3/mm3 08/08/2025 8:01 AM EDT [facility] Immature Grans, Absolute 0.01 0.00 - 0.05 10*3/mm3 08/08/2025 8:01 AM EDT [facility] nRBC 0.0 0.0 - 0.2 /100 WBC 08/08/2025 8:01 AM EDT [facility] Blood Venipuncture / Unknown 08/08/2025 7:36 AM EDT 08/08/2025 7:52 AM EDT us Jackie Ndiaye MD LAB BLOOD ORDERABLES Final Resul t [facility]
[address] [place] [address], * TSH (08/08/2025 7:36 AM EDT) TSH 1.880 0.270 - 4.200 uIU/mL 08/08/2025 8:42 AM EDT [facility] Blood Venipuncture / Unknown 08/08/2025 7:36 AM EDT 08/08/2025 7:52 AM EDT Jackie Ndiaye MD LAB BLOOD ORDERABLES Final Resul t [facility]
[address] [place] [address], * Comprehensive Metabolic Panel (08/08/2025 7:36 AM EDT) Glucose 93 65 - 99 mg/dL 08/08/2025 8:42 AM EDT [facility] BUN 10.4 6.0 - 20.0 mg/dL 08/08/2025 8:42 AM EDT [facility] Creatinine 0.98 0.76 - 1.27 mg/dL 08/08/2025 8:42 AM EDT [facility] Sodium 141 136 - 145 mmol/L 08/08/2025 8:42 AM EDT [facility] Potassium 4.4 3.5 - 5.2 mmol/L 08/08/2025 8:42 AM EDT [facility] Chloride 104 98 - 107 mmol/L 08/08/2025 8:42 AM EDT [facility] CO2 27.2 22.0 - 29.0 mmol/L 08/08/2025 8:42 AM EDT [facility] Calcium 9.3 8.6 - 10.5 mg/dL 08/08/2025 8:42 AM EDT [facility] Total Protein 6.9 6.0 - 8.5 g/dL 08/08/2025 8:42 AM EDT [facility] Albumin 4.3 3.5 - 5.2 g/dL 08/08/2025 8:42 AM EDT [facility] ALT (SGPT) 26 1 - 41 U/L 08/08/2025 8:42 AM EDT [facility] AST (SGOT) 24 1 - 40 U/L 08/08/2025 8:42 AM EDT [facility] Alkaline Phosphatase 47 39 - 117 U/L 08/08/2025 8:42 AM EDT [facility] Total Bilirubin 0.8 0.0 - 1.2 mg/dL 08/08/2025 8:42 AM EDT [facility] Globulin 2.6 gm/dL 08/08/2025 8:42 AM T [facility] Comment:Calculated Result A/G Ratio 1.7 g/dL 08/08/2025 8:42 AM [facility] BUN/Creatinine Ratio 10.6 7.0 - 25.0 08/08/2025 8:42 AM T [facility] Anion Gap 9.8 5.0 - 15.0 mmol/L 08/08/2025 8:42 AM [facility] eGFR 95.7 >60.0 mL/min/1.7 3 08/08/2025 8:42 AM [facility] Blood Venipuncture / Unknown 08/08/2025 7:36 AM EDT 08/08/2025 7:52 AM EDT [facility] - 08/08/2025 8:42 AM EDT [...] MD LAB BLOOD ORDERABLES Final Resul t [facility]
[address] [place] [address], * (ABNORMAL) Lipid Panel (08/08/2025 7:36 AM EDT) Total Cholesterol 184 0 - 200 mg/dL 08/08/2025 8:42 AM EDT [facility] Triglycerides 87 0 - 150 mg/dL 08/08/2025 8:42 AM EDT [facility] HDL Cholesterol 42 40 - 60 mg/dL 08/08/2025 8:42 AM EDT [facility] LDL Cholesterol 126(H) 0 - 100 mg/dL 08/08/2025 8:42 AM EDT [facility] VLDL Cholesterol 16 5 - 40 mg/dL 08/08/2025 8:42 AM EDT [facility] LDL/HDL Ratio 2.97 08/08/2025 8:42 AM EDT [facility] Blood Venipuncture / Unknown 08/08/2025 7:36 AM EDT 08/08/2025 7:52 AM EDT Narrative [facility] - 08/08/2025 8:42 AM EDT Cholesterol [...] the NIH LDL-C calculation. us Bianca Banegas COIL INSPECTOR LAB BLOOD ORDERABLES Final R esult Performing Organization Address City/[facility]/ZIP Co de Phone Number [facility]
[address] [place] [address], [place] [phone] * Hemoglobin A1c (08/08/2025 7:36 AM EDT) Hemoglobin A1C 5.53 4.80 - 5.60 % 08/08/2025 8:30 AM EDT [facility] Blood Venipuncture / Unknown 08/08/2025 7:36 AM EDT 08/08/2025 8:15 AM EDT Narrative [facility] - 08/08/2025 8:30 AM EDT Hemoglobin A1C Ranges: Increased Risk for Diabetes 5.7% to 6.4% Diabetes >= 6.5% Diabetic Goal < 7.0% Bianca Banegas COIL INSPECTOR LAB BLOOD ORDERABLES Final R esult Performing Organization Address [facility] Co de Phone Number [facility]
[address] [place] [address], * CT Outside Head (08/07/2025 12:10 AM [...] Wed08/08/25 at 0900, If patient fails dysphagia, CA option MUST be given. Do not exceed [...] Wed08/08/25 at 0900, If patient fails dysphagia, CA option MUST be given. Do not exceed [...] Wed08/08/25 at 0900, If patient fails dysphagia, CA option MUST be given. Do not exceed [...] Wed08/08/25 at 0900, If patient fails dysphagia, CA option MUST be given. Do not exceed [...] Wed08/08/25 at 0900, If patient fails dysphagia, CA option MUST be given. Do not exceed [...] Wed08/08/25 at 0900, If patient fails dysphagia, CA option MUST be given. Do not exceed 4 grams of aspirin in a 24 hr period. If given for pain, use the following pain scale: Mild Pain = Pain Score of 1-3, CPOT 1-2 Moderate Pain = Pain Score of 4-6, CPOT 3-4 Severe Pain = Pain Score of 7-10, CPOT 5-8 documented in this encounter
--- OUTSIDE RECORDS SUMMARY | 2025-08-13 13:15 | XMS_ITS | Encounter Summary ---
Author Organization [place] [address] Care Team Providers Care Calender Wind Up Tender Name Role Phone Dashawn Barahona MD Primary Care Provider [phone] Reason for Visit * Reason Comments Hospital Follow Up Discharged on 08/09 Encounter Details Date Type Department Care Team (Late st Contact Info) Description 08/13/2025 1:15 PM EDT Office Visit [facility] [place] [address] [place] [address] Dashawn Barahona MD [address] [place] [address] [place] [address] Essential hypertension (Primary Dx); Dizziness; Near syncope; Prediabetes Social History Tobacco Use Types Packs/Day Years [...] Sign Reading Time Taken Comments Blood Pressure 128/88 08/13/2025 1:02 PM EDT Pulse 66 08/13/2025 1:02 PM EDT Temperature 36.8 C (98.2 F) 08/13/2025 1:02 PM EDT Respiratory Rate 18 08/13/2025 1:02 PM EDT Oxygen Saturation 98% 08/13/2025 1:02 PM EDT Inhaled Oxygen Concentration - - Weight 82.1 kg (181 lb) 08/13/2025 1:02 PM EDT Height 170.2 cm (5' 7 ) 08/13/2025 1:02 PM EDT Body Mass Index 28.35 08/13/2025 1:02 PM EDT documented in this encounter Functional Status * Is the person deaf or does he/she have serious difficulty hearing? Answer Date of Assessment Author No 06/24/2021 7:51 AM EDMayra Parada RMA * Is the person blind or does he/she have serious difficulty seeing even when wearing glasses? Answer Date of Assessment Author No 06/24/2021 7:51 AM Mayra Palomo RMA * Does this person have serious difficulty walking or climbing stairs? Answer Date of Assessment Author No 06/24/2021 7:51 AM EDMayra Parada RMA * Does this person have difficulty dressing or bathing? Answer Date of Assessment Author No 06/24/2021 7:51 AM Mayra Palomo RMA * Because of a physical, mental or emotional condition, does this person have difficulty doing errands alone such as visiting a doctor's office or shopping? Answer Date of Assessment Author No 06/24/2021 7:51 AM Mayra Palomo RMA documented as of this encounter Mental Status * Because of a physical, mental or emotional condition, does this person have serious difficulty concentrating, remembering or making decisions? Answer Entry Date Author No 06/24/2021 7:51 AM Mayra Palomo RMA documented in this encounter Ordered Prescriptions Prescription Sig Dispense Quantity Refills Last Filled Start Date End Date olmesartan (BENICAR) 20 mg Oral TabletIndications:E ssential hypertension Take 1 Tablet by mouth daily. 90 Tablet 3 08/13/2025 documented in this encounter Progress Notes * Dashawn Barahona MD - 08/13/2025 1:15 PM EDTAssociated Problem(s): Essential hypertension Orders: olmesartan (BENICAR) 20 mg Oral Tablet; Take 1 Tablet by mouth daily. * Dashawn Barahona MD - 08/13/2025 1:15 PM EDT Assessment & Plan 1. Post-hospitalization follow-up: - Recent hospitalization for dizziness and vertigo symptoms with unremarkable CT head, CT angio head and neck, and MRI head results. - Blood counts, kidney function, electrolytes, and A1c will be rechecked. Recommend follow up with neurology for EEG to rule out seizure activity, patient already established there - Low dose blood pressure medication will be initiated. If symptoms do not significantly improve within 1 to 2 weeks, return for further evaluation. 2. Hypertension: - Diastolic blood pressure is borderline high today, with elevated readings at home. - Start on Omlesartan for HTN Follow-up: If symptoms do not significantly improve within 1 to 2 weeks, return for further evaluation. Assessment & Plan Essential hypertension Orders: olmesartan (BENICAR) 20 mg Oral Tablet; Take 1 Tablet by mouth daily. Dizziness Orders: HEMOGLOBIN A1C; Future BASIC METABOLIC PANEL; Future CBC; Future Near syncope Orders: HEMOGLOBIN A1C; Future BASIC METABOLIC PANEL; Future Prediabetes Orders: HEMOGLOBIN A1C; Future BASIC METABOLIC PANEL; Future No follow-ups on file. Subjective Dashawn Campos is a 45 y.o. male Chief Complaint Patient presents with Hospital Follow Up Discharged on 08/09 History of Present Illness The patient is a 45-year-old male who presents for follow-up after a recent hospitalization for dizziness and vertigo symptoms. During the hospitalization, he underwent a CT head and a CT angio head and neck, both of which wereunremarkable for any acute stroke or significant vascular compromise. A head MRI also did not show any signs of an acute stroke. He reports feeling wobbly but does not experience a spinning sensation. He describes a sensation of the floor moving when he looks down. 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 He occasionally requires assistance to walk, while at other times he can barely cross a room without support. Intermittent tingling is experienced on the left side, which is not constant. After consuming coffee on Wednesday morning, he reported feeling strange, with his pupils remaining dilated even when exposed to light. He became pale and cold, with a blood pressure reading of 106/59 and a heart rate of 112. This episode lasted about 5 to 10 minutes, after which he felt weak and tired and went to sleep. No appointments are scheduled with neurology. Diazepam was prescribed during hospital visits, which seemed to alleviate symptoms. Blood pressure monitoring at home using an arm cuff shows occasional readings reaching 184 systolic. Episodes of low blood pressure, with readings below 140/90, are also reported. No shortness of breath or difficulty breathing is noted, but difficulty in articulating words during the hospital stay is mentioned. Alcohol: Drinks alcohol very little, about two to three times a week during football nights. Tobacco: Does not smoke cigarettes. Recreational Drugs: No recreational drug use. He has an upcoming appointment with neurology for sleep apnea on 08/27/2025. Review of Systems Constitutional: Positive for activity change and fatigue. Cardiovascular: Negative for chest pain, palpitations and leg swelling. Gastrointestinal: Negative for diarrhea, nausea and vomiting. Neurological: Positive for dizziness and weakness. Negative for tremors, syncope and numbness. Objective Blood pressure (!) 128/88, pulse 66, temperature 98.2 ??F (36.8 ??C), temperature source Temporal, resp. rate 18, height 5' 7 (1.702 m), weight 181 lb (82.1 kg), SpO2 98%. Body mass index is 28.35 kg/m??. Physical Exam Physical Exam Vitals reviewed. Constitutional: General: He is not in acute distress. Appearance: He is well-developed. He is not diaphoretic. HENT: Head: Normocephalic and atraumatic. Eyes: Extraocular Movements: Extraocular movements intact. Pupils: Pupils are equal, round, and reactive to light. Cardiovascular: Rate and Rhythm: Normal rate and regular rhythm. Pulmonary: Effort: Pulmonary effort is normal. Breath sounds: Normal breath sounds. No wheezing. Musculoskeletal: Right lower leg: No edema. Left lower leg: No edema. Skin: Findings: No rash. Neurological: General: No focal deficit present. Mental Status: He is alert and oriented to person, place, and time. Mental status is at baseline. Cranial Nerves: No cranial nerve deficit. Sensory: No sensory deficit. Motor: No weakness. Coordination: Coordination normal. Psychiatric: Behavior: Behavior normal. Thought Content: Thought content normal. Judgment: Judgment normal. Results The provider educated the patient (or legal dairy supplies sales representative) on the use of the ambient listening artificial intelligence tool, Sols. They were informed that this AI tool processes the conversation to generate a clinical note with the expected benefit of improved accuracy while achieving an improved encounter experience for the patient and provider.?The provider explained that the medical information captured by the AI tool including, but not limited to, diagnoses and treatment plan would be protected in accordance with applicable privacy laws and that all diagnoses and treatment decisions would be made by the provider. The provider explained that the note generated will be reviewed bythe provider for accuracy to minimize potential errors.? The patient was given an opportunity to ask questions and opt out of proceeding with the use of the AI tool. After being informed of such information, the patient (or legal dairy supplies sales representative), and each individual in attendance with the patient, verbally consented to the use of the AI tool. * Natalie Franco - 08/13/2025 1:15 PM EDT Venipuncture in the right antecubital vein with 21 gauge needle, length 1 1/2 inch. documented in this encounter Plan of Treatment Not on file documented as of this encounter Goals Goal Patient Goal Type Associated Problems Recent Progress Patient-Stated? Author Blood Pressure < 140/90 Blood Pressure 128/88(2024 1:02 PM EDT) No Dashawn Barahona MD Maintain a healthy diet, exercise regularly and maintain an ideal body weight General No Rianna Castañeda LPN Stay Tobacco Free Lifestyle No Rianna Castañeda LPN documented as of this encounter Procedures Procedure Name Priority Date/Time Associated Diagnosis Comments CBC Routine 08/13/2025 1:27 PM EDT Dizziness HEMOGLOBIN A1C Routine 08/13/2025 1:27 PM EDT Dizziness Near syncope Prediabetes BASIC METABOLIC PANEL Routine 08/13/2025 1:27 PM EDT Dizziness Near syncope Prediabetes documented in this encounter Results * (ABNORMAL) CBC (08/13/2025 1:27 PM EDT) WBC 7.5 3.7 - 10.3 x10(3)/mcL 08/13/2025 9:32 PM EDT [facility] RBC 5.85 4.60 - 6.10 x10(6)/mcL 08/13/2025 9:32 PM EDT [facility] Hgb 17.2 13.7 - 17.5 g/dL 08/13/2025 9:32 PM EDT [facility] Hct 51.6(H) 40.0 - 51.0 % 08/13/2025 9:32 PM EDT [facility] MCV 88.2 80.0 - 100.0 fL 08/13/2025 9:32 PM EDT [facility] MCH 29.4 26.0 - 34.0 pg 08/13/2025 9:32 PM EDT [facility] MCHC 33.3 30.7 - 35.5 g/dL 08/13/2025 9:32 PM EDT [facility] RDW 12.6 <=14.9 % 08/13/2025 9:32 PM EDT [facility] Platelet 253 155 - 369 x10(3)/mcL 08/13/2025 9:32 PM EDT [facility] MPV 10.9 8.8 - 12.5 fL 08/13/2025 9:32 PM EDT [facility] Blood VENOUS BLOOD / Unknown Venipuncture / Unknown 08/13/2025 1:27 PM EDT 08/13/2025 1:27 PM EDT us Dashawn Barahona MD HEMATOLOGY ORDERABLES Final Re sult [facility], [facility] [address] , [place] [address] * BASIC METABOLIC PANEL (08/13/2025 1:27 PM EDT) Sodium 140 136 - 145 mmol/L 08/13/2025 9:20 PM EDT [facility] Potassium 4.9 3.5 - 5.0 mmol/L 08/13/2025 9:20 PM EDT [facility] Chloride 103 98 - 107 mmol/L 08/13/2025 9:20 PM EDT [facility] Total CO2 25 22 - 29 mmol/L 08/13/2025 9:20 PM EDT [facility] Anion Gap 12 7 - 16 mmol/L 08/13/2025 9:20 PM EDT [facility] Calcium 10.4 8.6 - 10.4 mg/dL 08/13/2025 9:20 PM EDT [facility] Glucose Lvl 94 70 - 99 mg/dL 08/13/2025 9:20 PM EDT [facility] BUN 12 6 - 20 mg/dL 08/13/2025 9:20 PM EDT [facility] Creatinine 1.10 0.67 - 1.30 mg/dL 08/13/2025 9:20 PM EDT [facility] eGFR (CKD-EPIcr 2020) 83 >=60 mL/min/1.7 3 m2 08/13/2025 9:20 PM EDT [facility] Comment:Estimated GFR was ca lculated using the CKD-EPIcr (2020) equation refit without race. The equation is recommended by the National Kidney Foundation - [place] [employer] of Nephrology Task Force. Blood VENOUS BLOOD / Unknown Venipuncture / Unknown 08/13/2025 1:27 PM EDT 08/13/2025 1:27 PM EDT us Dashawn Barahona MD CHEMISTRY ORDERABLES Final Res ult Performing Organization Address City/[facility]/ZIP Co de Phone Number [facility], [facility] [address] , [place] [address] * HEMOGLOBIN A1C (08/13/2025 1:27 PM EDT) Hgb A1C 5.6 4.2 - 5.6 % 08/13/2025 10:02 PM EDT [employer] Est. Avg Glucose 114 mg/dL 08/13/2025 10:02 PM EDT [employer] Blood VENOUS BLOOD / Unknown Venipuncture / Unknown 08/13/2025 1:27 PM EDT 08/13/2025 1:27 PM EDT Narrative [facility] - 08/13/2025 10:02 PM EDT REFERENCE RANGE: Normal: 4.0-5.6% Pre-diabetes: 5.7-6.4% Provisional diagnosis of diabetes: >6.4% Hgb F>10% and anything which shortens red cell survival, such as hemolytic anemia, or unstable hemoglobin variants such as HbSS, HbSC, or HbCC, will lower the HbA1c value associated with a given level of glycemic control. us Dashawn Barahona MD CHEMISTRY ORDERABLES Final Res ult [facility] [address] [place] [address] , [place] [address] documented in this encounter Visit Diagnoses Diagnosis Essential hypertension- Primary Unspecified essential hypertension Dizziness Dizziness and giddiness Near syncope Syncope and collapse Prediabetes Other abnormal glucose documented in this encounter Historical Medications * This list may reflect changes made after this encounter. meclizine (ANTIVERT) 25 mg Oral Tablet Take 25 mg by mouth 3 times daily as needed. for dizziness added in this encounter Care Teams Calender Wind Up Tender Relationship Specialty Start Date End Date Dashawn Barahona MD [address] [place] [address] [place] [address] PCP - General Family Medicine 06/24/21 documented as of this encounter
--- NOTE | 2025-08-14 13:30 | CA_ITS ---
FINAL REPORT CLINICAL HISTORY: LABILE HTN,HLD FINDINGS: Aorta velocity: 88 cm/sec Right kidney: 11.0 cm. Right intrarenal RI: 0.40-0.65 Right renal artery velocity: 127 cm/sec. Right RAR (Renal artery-Aortic Ratio): 1.4 Left Kidney: 12.6 cm. Left intrarenal RI: 0.54-0.73 Left renal artery velocity: 98 cm/sec. Left RAR (Renal Artery-Aortic Ratio): 1.1 IMPRESSION: No evidence of significant renal artery stenosis. CT angiogram or postcontrast MR angiogram would be more sensitive for evaluation of possible renal artery stenosis. Reviewed, Interpreted and Dictated by Miesha Farris MD Transcribed by Bethany Hadley Authenticated and [facility]
--- OUTSIDE RECORDS SUMMARY | 2025-08-14 13:34 | XMS_ITS | Clinical Summary ---
Author Organization [facility] Address [address] [place] [address] Care Team Providers Care Costume Director Name Role Phone Estefani Asencio DDS Unavailable [phone] Pcp, No Primary Care Provider Unavailabl e [...] 2023 Sigmoidoscopy 2023 [facility]-Colorectal Cancer Screening 2023 [id number] Vaccine (3 - 2024- season) 2025 07/27/2021, [...] patient's age to complete this topic Insurance [place] [address] Care Teams Costume Director Relationship Specialty Start Date End Date Pcp, Nathalia [address] [place] [address] PCP - General Family Medicine 08/08/24 Estefani Asencio DDS [address] [facility] [address] [place] [address] Dentist Dentist 07/03/24
--- OUTSIDE RECORDS SUMMARY | 2025-08-14 13:34 | XMS_ITS | Encounter Summary ---
Author Organization [place] [address] Care Team Providers Care High School Assistant Football Coach Name Role Phone Dashawn Barahona MD Primary Care Provider [phone] Reason for Visit * Reason Onset Date Comments Relaying Information 08/10/2025 Pt going to hospital Encounter Details Date Type Department Care Team (Late st Contact Info) Description 08/10/2025 Telephone [facility] [address] [place] [address] Dashawn Barahona MD [address] [place] [address] [place] [address] Relaying Information (Pt going to hospital ) [...] No 06/24/2021 7:51 AM EDMayra Parada RMA documented as of this encounter Mental Status * Because of a physical, mental or emotional condition, does this person have serious difficulty concentrating, remembering or making decisions? Answer Entry Date Author No 06/24/2021 7:51 AM EDT Mayra Cruz RMA documented in this encounter Miscellaneous Notes * Telephone Encounter - Oralia Baig MA - 08/10/2025 10:35 AM EDT Pt is aware to schedule an appointment with Dr. Barahona. * Telephone Encounter - Dashawn Barahona MD [...] was 47. Pt is being [facility] to [facility]. Further action needed: No Additional Information:N/A documented [...] on filedocumented in this encounter Care Teams High School Assistant Football Coach Relationship Specialty Start Date End Date Dashawn Barahona MD [address] [facility] [place] [address] PCP - General Family Medicine 06/24/21 documented as of this encounter
--- OUTSIDE RECORDS SUMMARY | 2025-08-14 13:34 | XMS_ITS | Encounter Summary ---
Author Organization [place] [address] Care Team Providers Care Detasseling Crew Supervisor Name Role Phone Dashawn Barahona MD Primary Care Provider [phone] Reason for Visit * Reason Onset Date Comments Symptoms (Only Use If Pt Pus hes Back On Scheduling A Visit) 08/10/2025 BP 140/103 dizzy Dizziness 08/10/2025 Hypertension 08/10/2025 Encounter Details Date Type Department Care Team (Late st Contact Info) Description 08/10/2025 Nurse Triage [facility] [place] [place] [address] Dashawn Barahona MD [address] [place] [address] [place] [address] Social History Tobacco Use Types Packs/Day Years [...] left side of body. Patient d/c'd from [facility] recently and stroke workup negative-- [...] of speech or garbled speech Protocols used: [id number] * Telephone Encounter - Ashvin Rosas RMA [...] help? Yes (remember to route this message [facility] Nurse Triage [facility] # [id number]) Additional Information: N/A documented in [...] on filedocumented in this encounter Care Teams Detasseling Crew Supervisor Relationship Specialty Start Date End Date Dashawn Barahona MD [address] [place] [address] [place] [address] PCP - General Family Medicine 06/24/21 documented as of this encounter
--- OUTSIDE RECORDS SUMMARY | 2025-08-14 13:36 | XMS_ITS | Encounter Summary ---
Author Organization [facility] Address [address] [place] [address] Care Team Providers Care Reception Specialist Name Role Phone Unavailable Primary Care Provider [...] care, and heating? Not very hard 08/08/2025 [facility] [place] of Occupat ional Health - Occupational Stress [...] for daily living? No 08/08/2025 [facility] Utilities Answer Date Recorded In the [...] GED or equivalent No 08/08/2025 Preferred Language Bengali 08/08/2025 PHQ-2 Answer Date Recorded Patient Health [...] 8:34 AM EDT Mercedez Roland RN * [place] Suicide Severity Rating Scale (Screener/Recent Self-Report) Question [...] as of this encounter Plan of Treatment Not on file documented as of this encounter Visit Diagnoses Not on filedocumented in this encounter
--- OUTSIDE RECORDS SUMMARY | 2025-08-14 13:36 | XMS_ITS | Encounter Summary ---
Author Organization [place] [address] Care Team Providers Care Button Bradder Name Role Phone Dashawn Barahona MD Primary Care Provider [phone] Encounter Details Date Type Department Care Team (Late st Contact Info) Description 08/14/2025 Results Follow-Up [facility] Richard [address] [place] [address] Dashawn Barahona MD [address] [place] [address] [place] [address] HEMOGLOBIN A1C, BASIC METABOLIC PANEL, CBC Social History Tobacco Use Types Packs/Day Years [...] Assessment Author No 06/24/2021 7:51 AM EDT Ebony Cruzerinmike Marroquin JESSIE * Does this person have serious difficulty walking or climbing stairs? Answer Date of Assessment Author No 06/24/2021 7:51 AM EDT Anthony , Mayra L, JESSIE * Does this person have difficulty dressing or bathing? Answer Date of Assessment Author No 06/24/2021 7:51 AM EDT Anthony Mayra L, JESSIE * Because of a physical, mental or emotional condition, does this person have difficulty doing errands alone such as visiting a doctor's office or shopping? Answer Date of Assessment Author No 06/24/2021 7:51 AM EDT Anthony , Mayra L, JESSIE documented as of this encounter Mental Status * Because of a physical, mental or emotional condition, does this person have serious difficulty concentrating, remembering or making decisions? Answer Entry Date Author No 06/24/2021 7:51 AM EDT Mayra Cruz JESSIE documented in this encounter Progress Notes * Dashawn Barahona MD - 08/14/2025 7:58 AM EDT Blood counts were normal no anemia. A1c was in the normal range improved from the prediabetic rangepreviously. Kidney function electrolytes were normal documented in this encounter Plan of Treatment [...] on filedocumented in this encounter Care Teams Button Bradder Relationship Specialty Start Date End Date Dashawn Barahona MD [address] [place] [address] [place] [address] PCP - General Family Medicine 06/24/21 documented as of this encounter
--- OUTSIDE RECORDS SUMMARY | 2025-08-14 13:36 | XMS_ITS | Clinical Summary ---
Author Organization [facility] Address [address] [place] [address] Care Team Providers Care Family And Consumer Sciences Professor Name Role Phone Unavailable Primary Care Provider [...] - 08/09/2025 3:22 PM EDT Hospital Encounter [address] [place] [id number] Chip Adams MD Barbato, Hayley R, DO [...] care, and heating? Not very hard 08/08/2025 [facility] - [...] things needed for daily living? No 08/08/2025 [facility] Utilities Answer Date Recorded In the [...] GED or equivalent No 08/08/2025 Preferred Language Uruguayan 08/08/2025 PHQ-2 Answer Date Recorded Patient Health [...] Mass Index - - Plan of Treatment Health Maintenance Due Date [...] AND COLOR FLOW (08/09/2025 1:21 PM EDT) Pathologist [facility] EF(MOD-bp) 62.0 % LVIDd 4.2 cm LVIDs [...] agitated saline was administered. us Bianca Banegas [employer] CV ECHO ORDERABLES Final Res ult * MRI Brain Without Contrast (08/08/2025 4:54 PM EDT) Anatomical Region Laterality Modality Head, Neck N/A Magnetic Resonan ce 08/08/2025 5:00 PM EDT Impressions 08/08/2025 5:06 PM EDT Impression: No acute intracranial finding. Electronically Signed: Lorenzo Saravia MD 08/08/2025 5:06 PM EDT Workstation ID: [id number] Narrative 08/08/2025 5:06 PM EDT MRI BRAIN [...] MD 08/08/2025 5:06 PM EDT Workstation ID: [id number] us Bianca Banegas [employer] IMG MRI ORDERABLES Final Res ult * (ABNORMAL) Urine Drug Screen - Urine, Clean Catch (08/08/2025 8:58 AM EDT) THC, Screen, Urine Negative Negative 2024 9:19 AM EDT [facility] Phencyclidine (PCP), Urine Negative Negative 08/08/2025 9:19 AM EDT [facility] Cocaine Screen, Urine Negative Negative 08/08/2025 9:19 AM EDT [facility] Methamphetamine, Ur Negative Negative 08/08/2025 9:19 AM EDT [facility] Opiate Screen Negative Negative 08/08/2025 9:19 AM EDT [facility] Amphetamine Screen, Urine Negative Negative 08/08/2025 9:19 AM EDT [facility] Benzodiazepine Screen, Urine Positive(A) Negative 08/08/2025 9:19 AM EDT [facility] Tricyclic Antidepressants Screen Negative Negative 08/08/2025 9:19 AM EDT [facility] Methadone Screen, Urine Negative Negative 08/08/2025 9:19 AM EDT [facility] Barbiturates Screen, Urine Negative Negative 08/08/2025 9:19 AM EDT [facility] Oxycodone Screen, Urine Negative Negative 08/08/2025 9:19 AM EDT [facility] Buprenorphine, Screen, Urine Negative Negative 08/08/2025 9:19 AM EDT [facility] Urine Urine specimen obtained by clean catch procedure / Unknown Collection / Unknown 08/08/2025 8:58 AM EDT 08/08/2025 9:07 AM EDT [facility] - 08/08/2025 9:19 AM EDT [...] Rose Casey MD URINE ORDERABLES Final Result [facility]
[address] [place] [address], * Fentanyl, Urine - Urine, Clean Catch (08/08/2025 8:58 AM EDT) Fentanyl, Urine Negative Negative 08/08/2025 10:12 AM EDT [facility] Urine Urine specimen obtained by clean catch procedure / Unknown Collection / Unknown 08/08/2025 8:58 AM EDT 08/08/2025 9:07 AM EDT [facility] - 08/08/2025 10:12 AM EDT Negative [...] particularly when unconfirmed results are used. us Rose Casey MD URINE ORDERABLES Final Result [facility]
[address] [place] [address], [place] [phone] * CT Outside Neck (08/08/2025 8:56 AM EDT) Narrative SYSTEMGENERATED, DOCUMENTATION - 08/08/2025 8:56 AM EDT This procedure was auto-finalized with no dictation required. us [employer] Outside Films IMG CT ORDERABLES Final Re sult * CBC Auto Differential (08/08/2025 7:36 AM EDT) WBC 5.70 3.40 - 10.80 10*3/mm3 08/08/2025 8:01 AM EDT [facility] RBC 5.24 4.14 - 5.80 10*6/mm3 08/08/2025 8:01 AM EDT [facility] Hemoglobin 15.1 13.0 - 17.7 g/dL 08/08/2025 8:01 AM EDT [facility] Hematocrit 45.6 37.5 - 51.0 % 08/08/2025 8:01 AM EDT [facility] MCV 87.0 79.0 - 97.0 fL 08/08/2025 8:01 AM EDT [facility] MCH 28.8 26.6 - 33.0 pg 08/08/2025 8:01 AM EDT [facility] MCHC 33.1 31.5 - 35.7 g/dL 08/08/2025 8:01 AM EDT [facility] RDW 13.0 12.3 - 15.4 % 08/08/2025 8:01 AM EDT [facility] RDW-SD 40.9 37.0 - 54.0 fl 08/08/2025 8:01 AM [facility] MPV 10.0 6.0 - 12.0 fL 08/08/2025 8:01 AM [facility] Platelets 220 140 - 450 10*3/mm3 08/08/2025 8:01 AM [facility] Neutrophil % 57.2 42.7 - 76.0 % 08/08/2025 8:01 AM [facility] Lymphocyte % 30.2 19.6 - 45.3 % 08/08/2025 8:01 AM [facility] Monocyte % 9.8 5.0 - 12.0 % 08/08/2025 8:01 AM [facility] Eosinophil % 1.9 0.3 - 6.2 % 08/08/2025 8:01 AM [facility] Basophil % 0.7 0.0 - 1.5 % 08/08/2025 8:01 AM [facility] Immature Grans % 0.2 0.0 - 0.5 % 08/08/2025 8:01 AM [facility] Neutrophils, Absolute 3.26 1.70 - 7.00 10*3/mm3 08/08/2025 8:01 AM [facility] Lymphocytes, Absolute 1.72 0.70 - 3.10 10*3/mm3 08/08/2025 8:01 AM [facility] Monocytes, Absolute 0.56 0.10 - 0.90 10*3/mm3 08/08/2025 8:01 AM [facility] Eosinophils, Absolute 0.11 0.00 - 0.40 10*3/mm3 08/08/2025 8:01 AM [facility] Basophils, Absolute 0.04 0.00 - 0.20 10*3/mm3 08/08/2025 8:01 AM [facility] Immature Grans, Absolute 0.01 0.00 - 0.05 10*3/mm3 08/08/2025 8:01 AM [facility] nRBC 0.0 0.0 - 0.2 /100 WBC 08/08/2025 8:01 AM EDT [facility] Blood Venipuncture / Unknown 08/08/2025 7:36 AM EDT 08/08/2025 7:52 AM EDT Rose Casey MD LAB BLOOD ORDERABLES Final Resul t Performing Organization Address City/[facility]/ZIP Co de Phone Number [facility]
[address] [place] [address], * TSH (08/08/2025 7:36 AM EDT) TSH 1.880 0.270 - 4.200 uIU/mL 08/08/2025 8:42 AM EDT [facility] Blood Venipuncture / Unknown 08/08/2025 7:36 AM EDT 08/08/2025 7:52 AM EDT Rose Casey MD LAB BLOOD ORDERABLES Final Resul t Performing Organization Address City/[facility] de Phone Number [facility]
[address] [place] [address], * Hemoglobin A1c (08/08/2025 7:36 AM EDT) Hemoglobin A1C 5.53 4.80 - 5.60 % 08/08/2025 8:30 AM EDT [facility] Blood Venipuncture / Unknown 08/08/2025 7:36 AM EDT 08/08/2025 8:15 AM EDT Narrative [facility] - 08/08/2025 8:30 AM EDT Hemoglobin A1C Ranges: Increased Risk for Diabetes 5.7% to 6.4% Diabetes >= 6.5% Diabetic Goal < 7.0% Bianca Banegas APRN LAB BLOOD ORDERABLES Final R esult Performing Organization Address City/[facility] Co de Phone Number [facility]
[address] [place] [address], * (ABNORMAL) Lipid Panel (08/08/2025 7:36 AM EDT) Total Cholesterol 184 0 - 200 mg/dL 08/08/2025 8:42 AM EDT [facility] Triglycerides 87 0 - 150 mg/dL 08/08/2025 8:42 AM EDT [facility] HDL Cholesterol 42 40 - 60 mg/dL 08/08/2025 8:42 AM EDT [facility] LDL Cholesterol 126(H) 0 - 100 mg/dL 08/08/2025 8:42 AM EDT [facility] VLDL Cholesterol 16 5 - 40 mg/dL 08/08/2025 8:42 AM EDT [facility] LDL/HDL Ratio 2.97 08/08/2025 8:42 AM EDT [facility] Blood Venipuncture / Unknown 08/08/2025 7:36 AM EDT 08/08/2025 7:52 AM EDT Narrative [facility] - 08/08/2025 8:42 AM EDT Cholesterol [...] using the NIH LDL-C calculation. Bianca Ramiro Banegas [employer] LAB BLOOD ORDERABLES Final R esult [facility]
[address] [place] [id number], * Comprehensive Metabolic Panel (08/08/2025 7:36 AM EDT) [facility] Signature Glucose 93 65 - 99 mg/dL 08/08/2025 8:42 AM EDT [facility] BUN 10.4 6.0 - 20.0 mg/dL 08/08/2025 8:42 AM EDT [facility] Creatinine 0.98 0.76 - 1.27 mg/dL 08/08/2025 8:42 AM EDT [facility] Sodium 141 136 - 145 mmol/L 08/08/2025 8:42 AM EDT [facility] Potassium 4.4 3.5 - 5.2 mmol/L 08/08/2025 8:42 AM EDT [facility] Chloride 104 98 - 107 mmol/L 08/08/2025 8:42 AM EDT [facility] CO2 27.2 22.0 - 29.0 mmol/L 08/08/2025 8:42 AM EDT [facility] Calcium 9.3 8.6 - 10.5 mg/dL 08/08/2025 8:42 AM EDT [facility] Total Protein 6.9 6.0 - 8.5 g/dL 08/08/2025 8:42 AM EDT [facility] Albumin 4.3 3.5 - 5.2 g/dL 08/08/2025 8:42 AM EDT [facility] ALT (SGPT) 26 1 - 41 U/L 08/08/2025 8:42 AM EDT [facility] AST (SGOT) 24 1 - 40 U/L 08/08/2025 8:42 AM EDT [facility] Alkaline Phosphatase 47 39 - 117 U/L 08/08/2025 8:42 AM EDT [facility] Total Bilirubin 0.8 0.0 - 1.2 mg/dL 08/08/2025 8:42 AM EDT [facility] Globulin 2.6 gm/dL 08/08/2025 8:42 AM EDT [facility] Comment:Calculated Result A/G Ratio 1.7 g/dL 08/08/2025 8:42 AM EDT [facility] BUN/Creatinine Ratio 10.6 7.0 - 25.0 08/08/2025 8:42 AM EDT [facility] Anion Gap 9.8 5.0 - 15.0 mmol/L 08/08/2025 8:42 AM EDT [facility] eGFR 95.7 >60.0 mL/min/1.7 3 08/08/2025 8:42 AM EDT [facility] Blood Venipuncture / Unknown 08/08/2025 7:36 AM EDT 08/08/2025 7:52 AM EDT Narrative [facility] - 08/08/2025 8:42 AM EDT GFR [...] include race as a factor us Rose aCsey MD LAB BLOOD ORDERABLES Final Resul t [facility]
[address] [place] [address], * CT Outside Head (08/07/2025 12:10 AM [...] Re sult from Last [address] [place] [address] [place] [address] Advance Directives * CPR (Attempt to Resuscitate) [...]
--- OUTSIDE RECORDS SUMMARY | 2025-08-14 13:36 | XMS_ITS | Encounter Summary ---
Author Organization [place] [address] Care Team Providers Care Manufacturing Associate Name Role Phone Dashawn Barahona MD Primary Care Provider [phone] Reason for Visit * Reason Onset Date Comments Orders 08/13/2025 EEG Encounter Details Date Type Department Care Team (Late st Contact Info) Description 08/13/2025 Telephone SEP Richard [address] [place] [address] Dashawn Barahona MD [address] [place] [address] [place] [address] Orders (EEG ) Social History Tobacco Use Types Packs/Day [...] Author No 06/24/2021 7:51 AM EDT Anthony Tanishae JESSIE Marroquin * Does this person have serious difficulty walking or climbing stairs? Answer Date of Assessment Author No 06/24/2021 7:51 AM EDT Anthony Mayra RMA * Does this person have difficulty dressing or bathing? Answer Date of Assessment Author No 06/24/2021 7:51 AM EDT Anthony Tanishamike MarroquinJESSIE * Because of a physical, mental or emotional condition, does this person have difficulty doing errands alone such as visiting a doctor's office or shopping? Answer Date of Assessment Author No 06/24/2021 7:51 AM EDT Mayra Cruz RMA documented as of this encounter Mental Status * Because of a physical, mental or emotional condition, does this person have serious difficulty concentrating, remembering or making decisions? Answer Entry Date Author No 06/24/2021 7:51 AM EDT Anthony Tanishamike MarroquinJESSIE documented in this encounter Miscellaneous Notes * Telephone Encounter - Oralia Baig MA - 08/13/2025 2:54 PM EDT Pt spouse stated that the needed something that stated why is it medically needed for Pt to get andEEG Faxed over office visit note to fax number provided * Telephone Encounter - Dashawn Barahona MD - 08/13/2025 2:40 PM EDT I cannot order the EEG test, this has to be done by neurology. He was supposed to follow-up with the neurologist at [facility] that he has already been seeing and they can determine whether ornot an EEG test is warranted. * Telephone Encounter - Sherlyn Rosenbaum, Clerical Staff - 08/13/2025 2:28 PM EDT Select the most appropriate reason for this telephone message: Order Request Who is Calling: Other Darby - Return Method of Communication: Phone Call What Orders are being requested: Radiology Reason Orders are Needed (Diagnosis): EEG Why is this encounter being sent: Patient has been seen for this and informed to call back if no improvement or gets worse What types of radiology orders are being requested: Other: EEG Is patient waiting at lab/hospital/facility: No If [facility], where should the order be faxed to (include fax number and facility name): [phone] [facility] Upcoming PCP appointment date: None - Seen today 08/13/25 Who is the ordering Provider: PCP Additional Information: Please Advise Patient/Caller, thank you. documented in this encounter Plan of Treatment [...] on filedocumented in this encounter Care Teams Manufacturing Associate Relationship Specialty Start Date End Date Dashawn Barahona MD [address] [place] [address] [place] [address] PCP - General Family Medicine 06/24/21 documented as of this encounter
--- OUTSIDE RECORDS SUMMARY | 2025-08-14 13:37 | XMS_ITS | Encounter Summary ---
Author Organization [facility] Address [address] [place] [id number] Care Team Providers Care Manager Risk Management Name Role Phone Estefani Asencio DDS Unavailable [phone] Pcp, No Primary Care Provider Unavailabl e Reason for Referral * Consultation (Routine) - Closed Specialty Diagnoses / Procedures Referred By Contgal t Referred To Contact Dentist / Pain Medicine Diagnoses Obstructive sleep apnea (adult) (pediatric) Leda Khan MD [address] [place] [address] [place] [address] Phone: tel: fax: Marce Milligan, DDS [address] [place] [address] Phone: tel: fax: Referral ID Status Reason Start Date Expiration Date Visits Re quested Visits Authorized [id number] Closed 06/15/2024 12/15/2025 1 1 Encounter Details Date Type Department Care Team (Late st Contact Info) Description 06/15/2024 Community [facility] [address] [place] [address] Leda Khan MD [address] [place] [address] [place] [address] Obstructive sleep apnea [...] Primary documented in this encounter Care Teams Manager Risk Management Relationship Specialty Start Date End Date Pcp, Nathalia [address] [place] [address] PCP - General Family Medicine 08/08/24 Estefani Asencio DDS [address] [facility] [address] [place] [address] Dentist Dentist 07/03/24 documented as of this encounter
== END 2025-08-14 23:59 | disposition home or self-care (01) ==
LOC: RT 13:23
PROVIDERS: PCP Family Medicine; Visit Provider Physician Assistant
DX: I10 Essential (primary) hypertension (principal); R42 Dizziness and giddiness; R60.0 Localized edema
CPT/HCPCS: 93976

== ENCOUNTER 2025-08-15 06:46 | Outpatient (CLI) | payer OTHER, SELFPAY ==
--- OUTSIDE RECORDS SUMMARY | 2025-08-08 06:36 | XMS_ITS | Encounter Summary ---
Author Organization [facility] Address [address] [place] [id number] Care Team Providers Care Gun Synchronizer Name Role Phone Unavailable Primary Care Provider Unavailabl e Reason for Referral * Physical Therapy (Routine) - Closed Specialty Diagnoses / Procedures Referred By Contac t Referred To Contact Physical Therapy Diagnoses Benign paroxysmal positional vertigo due to bilateral vestibular disorder Procedures MS OFFICE/OUTPATIENT NEW MODERATE MDM 45 MINUTES Jackie Ndiaye MD [address] [place], [place] [address] [place] [address] Phone: tel: fax: [address] [place] [address] Phone: tel: fax: Referral ID Status Reason Start Date Expiration Date V isits Requested Visits Authorized [id number] Closed Specialty Services Required 08/09/2025 11/08/2026 1 1 Reason for Visit * Auth/Cert Specialty Diagnoses / Procedures Referred By Contac t Referred To Contact Diagnoses Cerebrovascular Accident ATAXIA Referral ID Status Reason Start Date Expiration Date Visits Re quested Visits Authorized [id number] 1 1 Encounter Details Date Type Department Care Team (Late st Contact Info) Description 08/08/2025 6:36 AM EDT - 08/09/2025 3:22 PM EDT Hospital Encounter [address] [id number] Chip Adams MD [address] [place] [address] 4Th [facility] [place] [address] Nicki Kelly DO [address] [place] [id number] Jackie Ndiaye MD [address] [facility] [address] [place] [address] Benign paroxysmal positional vertigo due to bilateral [...] care, and heating? Not very hard 08/08/2025 [facility] of Occupat ional Health - Occupational Stress [...] things needed for daily living? No 08/08/2025 [facility] Utilities Answer Date Recorded In the past 12 months has th e [employer], gas, oil, or water company threatened to [...] GED or equivalent No 08/08/2025 Preferred Language Togolese 08/08/2025 PHQ-2 Answer Date Recorded Patient Health [...] 8:34 AM EDT Mercedez Roland RN * Keller Suicide Severity Rating Scale (Screener/Recent Self-Report) Question [...] visit. Date of 1980 Social Security Number [id number] [place] [address] Mormonism None Marital Status Admission Date 08/08/2025 Admission Type Urgent Admitting Provider Attending Provider Jackie Ndiaye MD Department, Room/Bed [facility] 3H, S383/1 Discharge Date Discharge Disposition Home or Self Care Discharge Destination Attending Provider: Jackie Ndiaye MD Allergies: No Known Allergies Isolation: None Infection: None Code Status: CPR Ht: -- Wt: 82.1 kg (181 lb) Admission Cmt: None Principal Problem: BPPV (benign paroxysmal positional vertigo) [H81.10] Active Insurance as of 08/08/2025 Primary Coverage Payor Plan Insurance Group Employer/Plan Group [facility] [facility] [id number] Payor Plan Address Payor Plan Phone Number Payor Plan Fax Number Effective Dates [address] 05/25/2011 - None Entered [facility] [id number] Subscriber Name Subscriber Date Member ID DARCI CAMPOS 1980 [id number] Emergency 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 Please contact [address] at [phone] during normal business hours. Verbal Order Mode: Verbal with readback Authorizing Provider: Jackie Ndiaye MD Authorizing Provider's Order Entered By: Susan Weiss RN 08/09/2025 2:50 PM Electronically signed by: Insurance Information [facility] [employer] [employer] Phone: -- Subscriber: Darci Campos Subscriber#: [id number] Group#: [id number] Precert#: -- Authorization#: -- Effective Date: -- History & Physical Jackie Ndiaye MD at 08/08/25 07 [facility] Medicine Services HISTORY AND PHYSICAL Patient Name: Darci Campos : 1980 Primary Care Physician: No primary care provider on file. Date of admission: 08/08/2025 Subjective Subjective Chief Complaint: Dizziness, difficulty walking HPI: Darci Campos is a 45 y.o. male with no known past medical history, who presented to for acute onset dizziness that began on [...] significant past medical history, who presented to [facility] on 08/07 with acute onset dizziness that [...] Summary Jackie Ndiaye MD at 08/09/25 0911 [facility] Medicine Services DISCHARGE SUMMARY Patient Name: [...] significant past medical history, who presented to [facility] on 08/07 with acute onset dizziness that began on 08/06 that has persisted. CTA head/neck and CT head were read as unremarkable. He was transferred here for stroke neurology evaluation. MRI brain negative for CVA. ECHO prelim okay and stroke neuro HAND BINDER STRIPPER is okay w DC home w prelim [...] MD 08/08/2025 5:06 PM EDT Workstation ID: [id number] CT Outside Head Result Date: 08/08/2025 This [...] minutes on this discharge activity which included: jgri-lv-zzvkykiffjvsj with the patient, reviewing the data in the system, coordination of the care with the nursing staff as well as consultants, documentation, and entering orders. [id number] * Jackie Ndiaye MD - 08/09/2025 9:11 AM EDT Images from the original note were not included. [facility] Services DISCHARGE SUMMARY Patient Name: Darci Campos : 1980 Date of Admission: 08/08/2025 6:36 AM Date of Discharge: 08/09/2025 Primary Care Physician: No primary care provider on file. Consults Date and Time Order Name Status Description 08/08/2025 6:42 AM Inpatient Neurology Consult Stroke Completed Hospital Course Presenting Problem: Active Hospital Problems Diagnosis POA ??? BPPV (benign paroxysmal positional vertigo) [H81.10] Yes ??? Hyperlipidemia [E78.5] Yes Resolved Hospital Problems No resolved problems to display. Hospital Course: Darci Campos is a 45 y.o. male with no significant past medical history, who presented to [facility] on 08/07 with acute onset dizziness that began on 08/06 that has persisted. CTA head/neck and CT head were read as unremarkable. He was transferred here for stroke neurology evaluation. MRI brain negative for CVA. ECHO prelim okay and stroke neuro HAND BINDER STRIPPER is okay w DC home w prelim [...] MD 08/08/2025 5:06 PM EDT Workstation ID: [id number] CT Outside Head Result Date: 08/08/2025 This [...] Self Care Diet: Hospital: Diet Order Procedures ??? Diet: Regular/House, Cardiac; Healthy Heart (2-3 Na+); [...] minutes on this discharge activity which included: gxsp-dr-bvpzogprhbdig with the patient, reviewing the data in the system, coordination of the care with the nursing staff as well as consultants, documentation, and entering orders. [1] No Known Allergies * Miguelina Cohen, CF-GUEST SERVICE TEAM LEADER - 08/08/2025 9:08 AM EDT Acute Care - Speech Language Pathology Initial Evaluation/Discharge [facility] Cognitive-Communication Evaluation Patient Name: Darci Campos : 1980 Today's Date: 08/08/2025 Admit Date: 08/08/2025 Visit Dx: No diagnosis found. Problem List[1] History reviewed. No pertinent past medical history. History reviewed. No pertinent surgical history. GUEST SERVICE TEAM LEADER Recommendation and Plan Recommended discharge disposition is based on the functional assessment performed by PT/OT/Speech therapy (as applicable) and may not reflect the medical necessity determined by your provider or services covered by an individual patient's insurance plan or patient resource. GUEST SERVICE TEAM LEADER Diagnosis: functional speech/language skills, functional cognitive- linguistic skills (08/08/25844) GUEST SERVICE TEAM LEADER Diagnosis Comments: Pt reports that he is at baseline level of function. No concerns noted on eval. GUEST SERVICE TEAM LEADER to sign off (08/08/25844) SLC Criteria for Skilled Therapy Interventions Met: no problems identified which require skilled intervention (08/08/25844) Anticipated Discharge Disposition (GUEST SERVICE TEAM LEADER): No further GUEST SERVICE TEAM LEADER services warranted (08/08/25844) Therapy Frequency (GUEST SERVICE TEAM LEADER [facility]): evaluation only (08/08/25844) GUEST SERVICE TEAM LEADER EVALUATION (Last 72 Hours) GUEST SERVICE TEAM LEADER SLC Evaluation Row Name 08/08/25844 Communication Assessment/Intervention Document Type discharge evaluation/summary -SM Subjective Information no complaints -SM Patient Observations alert;cooperative -SM Patient Effort good -SM Symptoms Noted During/After Treatment none -SM General Information Patient Profile Reviewed yes -SM Pertinent History Of Current Problem No significant past medical hx. Admit from for acute onset dizziness and ataxic gait -SM Precautions/Limitations, Vision WFL;for purposes of eval -SM Precautions/Limitations, Hearing WFL;for purposes of eval -SM Prior Level of Function-Communication WFL -SM Plans/Goals Discussed with patient;agreed upon -SM Barriers to Rehab none identified -SM Patient's Goals for Discharge patient did not state -SM Pain Pretreatment Pain Rating 0/10 - no pain -SM Posttreatment Pain Rating 0/10 - no pain - Comprehension Assessment/Intervention Comprehension Assessment/Intervention Auditory Comprehension - Auditory Comprehension Assessment/Intervention Auditory Comprehension (Communication) WFL - Expression Assessment/Intervention Expression Assessment/Intervention verbal expression - Verbal Expression Assessment/Intervention Verbal Expression WFL - Motor Speech Assessment/Intervention Motor Speech Function WFL - Speech intelligibility 100%;with unfamiliar listener - Cognitive Assessment Intervention- GUEST SERVICE TEAM LEADER Cognitive Function (Cognition) WFL - GUEST SERVICE TEAM LEADER Evaluation Clinical Impressions GUEST SERVICE TEAM LEADER Diagnosis functional speech/language skills;functional cognitive-linguistic skills - GUEST SERVICE TEAM LEADER Diagnosis Comments Pt reports that he is at baseline level of function. No concerns noted on eval. GUEST SERVICE TEAM LEADER to sign off - SLC Criteria for Skilled Therapy Interventions Met no problems identified which require skilled intervention - Functional Impact no impact on function - Recommendations Therapy Frequency (GUEST SERVICE TEAM LEADER SLC) evaluation only - Anticipated Discharge Disposition (GUEST SERVICE TEAM LEADER) No further GUEST SERVICE TEAM LEADER services warranted - User Benedict (r) = Recorded By, (t) = Taken By, (c) = Cosigned By Initials Name Effective Dates Miguelina Tran MS CF-GUEST SERVICE TEAM LEADER 03/29/25 - EDUCATION The patient has been educated in the following areas: Cognitive Impairment Communication Impairment. Time Calculation: Time Calculation- GUEST SERVICE TEAM LEADER Row Name 08/08/25 0908 Time Calculation- GUEST SERVICE TEAM LEADER GUEST SERVICE TEAM LEADER Start Time 0845 - GUEST SERVICE TEAM LEADER Received On 08/08/25 - Untimed Charges 37299-DO Eval Speech and Production w/ Language Minutes 40 -SM Total Minutes Untimed Charges Total Minutes 40 -SM Total Minutes 40 -SM User Benedict (r) = Recorded By, (t) = Taken By, (c) = Cosigned By Initials Name Provider Type Miguelina Tran MS CF-GUEST SERVICE TEAM LEADER Speech and Language Pathologist Therapy Charges for Today Code Description Service Date Service Provider Modifiers Qty 15872705259 HC ST EVAL SPEECH AND PROD W LANG 3 08/08/2025 Miguelina Cohen MS CF-GUEST SERVICE TEAM LEADER GN 1 GUEST SERVICE TEAM LEADER Discharge Summary Anticipated Discharge Disposition (GUEST SERVICE TEAM LEADER): No further GUEST SERVICE TEAM LEADER services warranted MS JESUS GironGUEST SERVICE TEAM LEADER 08/08/2025 [1] Patient Active Problem List Diagnosis [...] as of this encounter Progress Notes * [place] Randee Moe, HAND BINDER STRIPPER - 08/09/2025 8:47 AM EDT Images from [...] in upper and lower extremities. Coordination Right: Dkizkc-we-yanf normal.Left: Qobotd-pd-qwjx normal. Physical Exam Vitals reviewed. Constitutional: Appearance: [...] MD 08/08/2025 5:06 PM EDT Workstation ID: [id number] -CTH wo on 08/07/2025 images from outside [...] significant past medical history. He presented to on the evening of 08/07/2025 with complaints [...] of care and further stroke workup. Antiplatelet NET APPLICATIONS DEVELOPER: none Anticoagulant NET APPLICATIONS DEVELOPER: none Dizziness and ataxic gait, improving -Suspect symptoms are secondary to BPPV -MRI brain with thins personally reviewed and negative; will dc stroke orderset -CTA imaging is without significant stenosis -Recommend continue PT/OT for [place]; discussed with staff -Normal BP parameters -TTE [...] significant past medical history. He presented to on the evening of 08/07/2025 with complaints [...] of care and further stroke workup. Antiplatelet NET APPLICATIONS DEVELOPER: None Anticoagulant NET APPLICATIONS DEVELOPER: None #Dizziness and gait instability -Etiology of [...] needed -Activity as tolerated, fall risk precautions -PT/OT/GUEST SERVICE TEAM LEADER evaluation #Essential hypertension -Normal blood pressure goals -Primary team to manage Stroke will continue to follow. Please call for any further questions or concerns Dread Justin MD, Msc, PhD Vascular Neurologist [facility] documented in this encounter H&P Notes * Jackie Ndiaye MD - 08/08/2025 7:22 AM EDT Images from the original note were not included. [facility] Medicine Services HISTORY AND PHYSICAL Patient Name: Darci Campos : 1980 Primary Care Physician: No primary care provider on file. Date of admission: 08/08/2025 Subjective Subjective Chief Complaint: Dizziness, difficulty walking HPI: Darci Campos is a 45 y.o. male with no known past medical history, who presented to for acute onset dizziness that began on [...] Personal History Past Medical History: Diagnosis Date ??? Sleep apnea Past Surgical History: Procedure Laterality Date ??? APPENDECTOMY ??? SHOULDER ARTHROSCOPY Family History: family history includes Heart disease in his father; Hypertension in his father; Leukemia in his mother. Social History: reports that he has never smoked. He has never used smokeless tobacco. He reports current alcohol use of about 4.0 standard drinks of alcohol per week. He reports that he does not usedrugs. Social History Social History Narrative ??? Not on file Medications: cetirizine Allergies[1] Objective [...] significant past medical history, who presented to [facility] on 08/07 with acute onset dizziness that [...] MRI negative, then PT for Jordan maneuver EYLA-doesn't use his CPAP DVT prophylaxis: SCDs for [...] in this encounter Consult Notes * Chica Timmons RN - 08/08/2025 8:31 AM EDTAssociated Order(s): IP CONSULT TO COMMUNICATIONS FIELD TECHNICIAN Chart review for perinatal educator consult. At the time of this review patient A1c is 5.5 , they have no noted history of diabetes and no home medications noted for treatment of diabetes. At this time we do not feel the patient would benefit from diabetes education. Thank you for this consult, should patient needs change please re consult us. * Bianca Banegas APRN - 08/07/2025 10:04 PM EDT Stroke Consult Note Patient Name: Darci Campos Age: 45 y.o. Sex: male : 1980 Primary Care Physician: No primary care provider on file. Referring Physician: OS ED provider Handedness: Right Race: Chief Complaint/Reason for Consultation: Dizziness, ataxic gait HPI: Darci Campos is a 45-year-old male with no significant past medical history. He presented to on the evening of 08/07/2025 with complaints [...] are normal. Cranial Nerves CN II: Visual hcapman full to confrontation. CN III, IV, : [...] neglect. No left-sided hemispatial neglect. Coordination Right: Yfrcan-qc-fjav normal. Dswy-mf-ojxo normal.Left: Dvnarw-vw-lcbb normal. Xmuo-ws-nkpf normal. Gait Normal gait. Not observed. Physical [...] encounter. PRNs- Functional Status Prior to Current Stroke/Thomas Score: 0 NIH Stroke Scale Time: 22:05 [...] significant past medical history. He presented to on the evening of 08/07/2025 with complaints [...] of care and further stroke workup. Antiplatelet NET APPLICATIONS DEVELOPER: None Anticoagulant NET APPLICATIONS DEVELOPER: None Dizziness Differential diagnosis includes posterior circulation [...] cocktail -Activity as tolerated, fall risk precautions -PT/OT/GUEST SERVICE TEAM LEADER evaluation -Please send OSH radiology disc down [...] room organization consistent safety round/check completed Taken 08/08/20252199 by Jolene Zambrano RN Safety Promotion/Fall Prevention: [...] - sacrum/coccyx skin sealant/moisture barrier applied Taken 08/08/20252199 by Jolene Zambrano RN Body Position: position [...] rest/sleep promoted single patient room provided Taken 08/08/20252199 by Jolene Zambrano RN Infection Prevention: cohorting [...] Documentation Taken 08/09/2025 0200 by Jolene Zambrano RNdischarge specialist Interventions: care clustered position adjusted pillow support provided quiet environment facilitated Taken 08/09/2025 0000 by Jolene Zambrano RNdischarge specialist Interventions: care clustered position adjusted pillow support provided quiet environment facilitated Taken 08/08/20252199 by Jolene Zambrano RNdischarge specialist Interventions: care clustered position adjusted pillow support provided quiet environment facilitated Taken 08/08/20251999 by Jolene Zambrano RNdischarge specialist Interventions: care clustered position adjusted pillow support [...] questions encouraged reassurance provided thoughts/feelings acknowledged Taken 08/08/20252199 by Jolene Zambrano RN Trust Relationship/Rapport: care [...] in chair without complaint. NIH performed by discharge specialist -pt tolerating diet, cont to monitor * Mercedez Martinez, RN - 08/08/2025 11:40 AM EDT This RN not NIH certified. boat officer alerted at 0700 to assist with NIH and she verbally agreed to perform this task. * Ileana Ruiz, OT - 08/08/2025 10:08 AM EDT Goal Outcome Evaluation: Plan of Care Reviewed With: patient Progress: no change Outcome Evaluation: Pt. presents below baseline with with ADLs and functional mobility. Limited by decreased activity tolerance, generalized weakness, and balance. Skilled OT services warranted to promote return to PLOF. Recommend home with 24/7 assist and OP therapy. * Julieta Reese, PT - 08/08/2025 10:07 AM EDT Goal [...] home with outpatient therapy services * Miguelina Cohen, MS CF-GUEST SERVICE TEAM LEADER - 08/08/2025 9:07 AM EDT Goal Outcome Evaluation: Plan of Care Reviewed With: patient Anticipated Discharge Disposition (GUEST SERVICE TEAM LEADER): No further GUEST SERVICE TEAM LEADER services warranted GUEST SERVICE TEAM LEADER Diagnosis: functional speech/language skills, functional cognitive- linguistic skills (08/08/25844) GUEST SERVICE TEAM LEADER Diagnosis Comments: Pt reports that he is at baseline level of function. No concerns noted on eval. GUEST SERVICE TEAM LEADER to sign off (08/08/25844) documented in this encounter Miscellaneous Notes * Case Management/Social Work - Susan Weiss RN - 08/09/2025 2:52 PM EDT Continued Stay Note [place] Patient Name: Darci Campos Today's Date: 08/09/2025 Admit Date: 08/08/2025 Plan: home Discharge Plan Row Name 08/09/25 0040 Plan Plan Comments Outpt PT order has been faxed to [address] is the only PT in [...] = Cosigned By Initials Name Provider Type KR Ar, Irma, PT Physical Therapist Mobility Row Name 08/09/25 1026 Bed Mobility Bed Mobility supine-sit;sit-supine -KR Supine-Sit [place] (Bed Mobility) standby assist -KR Sit-Supine [place] (Bed Mobility) standby assist -KR Comment, (Bed Mobility) [place]-Hallpike performed and negative for nystagmus and vertiginous sx bilaterally. Orthostatics also assessed; BP sup 134/92; BP sit 138/100; BP stand 145/99. -KR Row Name 08/09/25 1026 Bed-Chair Transfer Bed-Chair [place] (Transfers) standby assist -KR Row Name 08/09/25 1026 Sit-Stand Transfer Sit-Stand [place] (Transfers) standby assist -KR Comment, (Sit-Stand Transfer) 1x from chair, 2x from bed -KR Row Name 08/09/25 1026 Gait/Stairs (Locomotion) [place] Level (Gait) contact guard -KR Distance in [...] PT) sit to supine;supine to sit -KR [place] Level/Cues Needed (Bed Mobility Goal 1, PT) independent -KR Time Frame (Bed Mobility Goal 1, PT) short term goal (STG);5 days -KR Progress/Outcomes (Bed Mobility Goal 1, PT) goal met -KR Row Name 08/09/25 1129 Transfer Goal 1 (PT) Activity/Assistive Device (Transfer Goal 1, PT) sgx-fi-ehgqw/cfnvo-rh-qpe;qqf-dd-jsqix/eveai-xx-uej-KR [place] Level/Cues Needed (Transfer Goal 1, PT) independent -KR Time Frame (Transfer Goal 1, PT) correction goal (LTG);1 week -KR Progress/Outcome (Transfer Goal 1, PT) goal revised this -KR Row Name 08/09/25 112 Gait Training Goal 1 (PT) Activity/Assistive Device (Gait Training Goal 1, PT) gait (walking locomotion);assistive device use-KR [place] Level (Gait Training Goal 1, PT) independent -KR Distance (Gait Training Goal 1, PT) 350 -KR Time Frame (Gait Training Goal 1, PT) correction goal (LTG);1 week -KR Row Name 08/09/25 [...] patient -KR Progress improving -KR Outcome Evaluation Sara Hallpike performed. Pt negative for nystagmus and vertiginous symptoms bilaterally. Orthostatics assessed and also negative. Given negative Sara Hallpike and pt c/o of fullness in ears and tinnitus, this PT more suspicious of vestibular neuritis. MD notified. PT rec home with assist and [...] Provider Type Irma Mendieta, PT Physical Therapist Outcome Measures Row Name [...] Provider Type Irma Mendieta, PT Physical Therapist Desirae Segura, RN Registered Nurse Physical Therapy Education Title: PT OT GUEST SERVICE TEAM LEADER Therapies (In Progress) Topic: Physical Therapy (In [...] - Julieta Reese, PT Physical Therapist PT 10/23/22 - Irma Joyner, PT Physical Therapist PT PT Recommendation and [...] Frequency (PT): daily Progress: improving Outcome Evaluation: [place] Hallpike performed. Pt negative for nystagmus and vertiginous symptoms bilaterally. Orthostatics assessed and also negative. Given negative Sara Hallpike and pt c/o of fullnessin ears and tinnitus, this PT more suspicious of vestibular neuritis. notified. PT rec home withassist and OP vestibular PT upon dc. Time Calculation: PT Charges Row Name 08/09/25 1032 Time Calculation Start Time 1000 -KR PT Received On 08/09/25 -KR Timed Charges 17058 - PT Therapeutic Activity Minutes 23 -KR Untimed Charges PT Eval/Re-eval Minutes 20 -KR Total Minutes Timed Charges Total Minutes 23 -KR Untimed Charges Total Minutes 20 -KR Total Minutes 43 -KR User Benedict (r) = Recorded By, (t) = Taken By, (c) = Cosigned By Initials Name Provider Type Irma Mendieta PT Physical Therapist Therapy Charges for Today Code Description Service Date Service Provider Modifiers Qty [id number] HC PT THERAPEUTIC ACT EA 15 MIN 08/09/2025 Irma Joyner, PT GP 2 27998794775 HC PT RE-EVAL ESTABLISHED PLAN 2 08/09/2025 Irma [...] note were not included. Discharge Planning Assessment [facility] Patient Name: Darci Campos Today's Date: 08/08/2025 Admit Date: 08/08/2025 Plan: home Discharge Needs Assessment Row Name 08/08/25 1145 Living Environment People in Home spouse;grandchild(artie) Current Living Arrangements home Potentially Unsafe Housing Conditions none In the past 12 months has the electric, gas, oil, or water company threatened [...] Plan Comments Pt lives with his in [facility]. He was independent with ADLs and mobilityprior to admit. Owns a cpap but no other dme. At this time his plan for discharge is to retun home.Cm will follow for dc needs Final Discharge Disposition Code 01 - home or self-care Continued Care and Services - Admitted Since 08/08/2025 No active coordination exists. Demographic Summary Row Name 08/08/25 1147 General Information Admission Type inpatient Referral Source physician Reason for Consult discharge planning Preferred Language Togolese Contact Information Permission Granted to Share Info With family/designee Contact Information Ondina Campos Functional Status Row Name 08/08/25 114 Functional Status Usual Activity Tolerance good Current [...] No documentation. Patient Forms No documentation. Susan Weiss RN * Therapy Evaluation - Ileana Ruiz [...] 1051 General Information Patient Profile Reviewed yes -LC Prior Level of Function independent:;all household mobility;ADL's;transfer CG for his 9 yo [facility] - Existing Precautions/Restrictions fall - Barriers to [...] = Cosigned By Initials Name Provider Type Joseph, Ileana, OT Occupational Therapist Mobility/ADL's Row Name 08/08/25 1053 Bed Mobility Bed Mobility scooting/bridging;supine-sit - Scooting/Bridging [place] (Bed Mobility) contact guard - Supine-Sit [place] (Bed Mobility) contact guard - Assistive Device (Bed Mobility) bed rails;head of bed elevated - Comment, (Bed Mobility) CGA for safety - Row Name 08/08/25 1053 Transfers Transfers sit-stand transfer;bed-chair transfer - Comment, (Transfers) VC's for hand placement and sequencing. - Row Name 08/08/25 1053 Bed-Chair Transfer Bed-Chair [place] (Transfers) verbal cues;minimum assist (75% patient effort) - Assistive Device (Bed-Chair Transfers) other (see comments) B UE support - Row Name 08/08/25 105 Sit-Stand Transfer Sit-Stand [place] (Transfers) minimum assist (75% patient effort);verbal cues - Assistive Device (Sit-Stand Transfers) other (see comments) B UE support - Row Name 08/08/25 105 Activities of Daily Living BADL Assessment/Intervention lower body dressing;upper body dressing;grooming - Row Name 08/08/25 105 Lower Body Dressing Assessment/Training [place] Level (Lower Body Dressing) minimum assist (75% patient effort);lower body dressing skills - Row Name 08/08/25 105 Upper Body Dressing Assessment/Training [place] Level (Upper Body Dressing) don;pajama/robe;minimum assist (75% patient effort) - Position (Upper Body Dressing) edge of bed sitting - Row Name 08/08/25 105 Grooming Assessment/Training [place] Level (Grooming) grooming skills;set up - Position (Grooming) edge of bed sitting - User Benedict (r) = Recorded By, (t) = Taken By, (c) = Cosigned By Initials Name Provider Type Ileana Ron OT Occupational Therapist Obj/Interventions Row Name 08/08/25 1054 Sensory Assessment (Somatosensory) Sensory Assessment (Somatosensory) UE sensation intact - Row Name 08/08/25 105 Vision Assessment/Intervention Visual Impairment/Limitations -- Reports R eye deficits - Row Name 08/08/25 1054 Range of Motion Comprehensive General Range of Motion bilateral upper extremity ROM WFL - Row Name 08/08/25 1054 Strength Comprehensive (MMT) General Manual Muscle Testing (MMT) Assessment upper extremity strength deficits identified - Row Name 08/08/25 1054 Upper Extremity (Manual Muscle Testing) Upper Extremity: [...] OT Occupational Therapist Goals/Plan Row Name 08/08/25 1053 Transfer Goal 1 (OT) Activity/Assistive Device (Transfer Goal 1, OT) pho-lk-grqut/uwqvf-dz-llf;aey-rf-dyuqk/ugxzp-ay-cep;toilet;walker, rolling - [place] Level/Cues Needed (Transfer Goal 1, OT) contact guard required - Time Frame (Transfer Goal 1, OT) 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);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 - Progress/Outcome (Transfer Goal 1, OT) goal ongoing - Row Name 08/08/25 1058 Dressing Goal 1 (OT) Activity/Device (Dressing Goal 1, OT) lower body dressing - [place]/Cues Needed (Dressing Goal 1, OT) standby assist - Time Frame (Dressing Goal 1, OT) short term goal (STG);5 days - Progress/Outcome (Dressing Goal 1, OT) goal ongoing - Row Name 08/08/25 1051 Toileting Goal 1 (OT) Activity/Device (Toileting Goal 1, OT) adjust/manage clothing;perform perineal hygiene;commode;grabbar/safety frame - [place] Level/Cues Needed (Toileting Goal 1, OT) standby assist - Time Frame (Toileting Goal 1, OT) correction goal (LTG);10 days - Progress/Outcome (Toileting Goal 1, OT) goal ongoing - Row Name 08/08/25 1059 Therapy Assessment/Plan (OT) Planned Therapy Interventions (OT) activity tolerance training;adaptive equipment training;BADL retraining;functional balance retraining;occupation/activity based interventions;patient/caregiver educa tion/training;strengthening exercise;transfer/mobility retraining;ROM/therapeutic exercise - User Benedict (r) = Recorded By, (t) = Taken By, (c) = Cosigned By Initials Name Provider Type Ileana Ruiz, CYNDEE Occupational Therapist Clinical Impression Row Name 08/08/25 1056 Pain Assessment Pretreatment Pain Rating 0/10 - no pain - Posttreatment Pain Rating 0/10 - no pain - Row Name 08/08/25 1056 Plan of Care Review Plan of Care Reviewed With patient - Progress no change - Outcome Evaluation Pt. presents below baseline with with ADLs and functional mobility. Limited by decreased activity tolerance, generalized weakness, and balance. Skilled OT services warranted to promote return to PLOF. Recommend home with 24/ assist and OP therapy. - Row Name [...] Row Name 08/08/25 1100 08/08/25 0803 Modified Thomas Scale Pre-Stroke Modified Deanna Scale 6 - Unable to determine (UTD) from the medical record documentation -LC -- Modified Thomas Scale 3 - Moderate disability. Requiring some help, but able to walk without assistance. - 0 - No Symptoms at all. 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 Recommend home with 24/ assist and OP therapy. Time Calculation: Evaluation Complexity (OT) Review Occupational Profile/Medical/Therapy History Complexity: brief/low complexity Assessment, Occupational Performance/Identification of Deficit Complexity: 1-3 performance deficits Clinical Decision Making Complexity (OT): problem focused assessment/low complexity Overall Complexity of Evaluation (OT): low complexity Time Calculation- OT Row Name 08/08/25 1101 Time Calculation- OT OT Start Time 1008 -LC OT Received On 08/08/25 - OT Goal Re-Cert Due Date 08/18/25 - Untimed Charges OT Eval/Re-eval Minutes 62 -LC Total Minutes Untimed Charges Total Minutes 62 -LC Total Minutes 62 -LC User Benedict (r) = Recorded By, (t) = Taken By, (c) = Cosigned By Initials Name Provider Type Ileana Ruiz OT Occupational Therapist Therapy Charges for Today Code Description Service Date Service Provider Modifiers Qty [id number] HC-OT EVAL LOW COMPLEXITY 5 08/08/2025 Ileana Ruiz OT 1 Ileana Ruiz OT 08/08/2025 [1] Patient Active Problem List Diagnosis Dizziness * Therapy Evaluation - Julieta Reese PT - 08/08/2025 10:07 AM EDT Images [...] mobility;gait;transfer;bed mobility;ADL's CG for his 11 yo grandaufanny. -AB Existing Precautions/Restrictions fall;other (see comments) dizziness [...] Bed Mobility Bed Mobility scooting/bridging;supine-sit -AB Scooting/Bridging [place] (Bed Mobility) contact guard;verbal cues -AB Supine-Sit [place] (Bed Mobility) contact guard;verbal cues -AB Assistive Device (Bed Mobility) bed rails -AB Comment, (Bed Mobility) No nystagmus seen w/ transition to sitting. -AB Row Name 08/08/25 1147 Transfers Comment, (Transfers) Cues for hand placement and sequencing. Pt reports feeling like he is on a boat with all standing mobility. -AB Row Name 08/08/25 1147 Sit-Stand Transfer Sit-Stand [place] (Transfers) minimum assist (75% patient effort);verbal cues;2 person assist -AB Assistive Device (Sit-Stand Transfers) other (see comments) BOX PERSON -AB Row Name 08/08/25 1147 Gait/Stairs (Locomotion) [place] Level (Gait) minimum assist (75% patient effort);2 person assist;verbal cues -AB Assistive Device (Gait) other (see comments) BOX PERSON -AB Patient was able to Ambulate yes -AB Distance in Feet (Gait) 100 +100 -AB Deviations/Abnormal Patterns (Gait) bilateral deviations;base of support, narrow;efe decreased;gait speed decreased;stride length decreased -AB Bilateral Gait Deviations heel strike decreased -AB [place] Level (Stairs) unable to assess -AB Comment, [...] Skills coordination -AB Coordination bilateral;lower extremity;heel to lwa;WNL;ataxia;moderate impairment -AB Row Name 08/08/25 1150 Balance [...] PT) sit to supine;supine to sit -AB [place] Level/Cues Needed (Bed Mobility Goal 1, PT) independent -AB Time Frame (Bed Mobility Goal 1, PT) short term goal (STG);5 days -AB Row Name 08/08/25 1155 Transfer Goal 1 (PT) Activity/Assistive Device (Transfer Goal 1, PT) vni-rs-dqlym/ifpxg-os-qps;moa-vr-zqntb/qyssg-ix-hpf;walker, rolling -AB [place] Level/Cues Needed (Transfer Goal 1, PT) standby assist -AB Time Frame (Transfer Goal 1, PT) correction goal (LTG); days -AB Row Name 08/08/25 115 Gait Training Goal 1 (PT) Activity/Assistive Device (Gait Training Goal 1, PT) gait (walking locomotion);assistive device use;walker, rolling -AB [place] Level (Gait Training Goal 1, PT) standby assist -AB Distance (Gait Training Goal 1, PT) 350 -AB Time Frame (Gait Training Goal 1, PT) 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 Rec d/c home with 17/05 assist, RW, and OPPT. -AB Row Name [...] Row Name 08/08/25 1154 08/08/25 1100 Modified Deanna Scale Pre-Stroke Modified Thomas Scale 6 - Unable to determine (UTD) from the medical record documentation -AB 6 - Unable to determine (UTD) from the medical record documentation -LC Modified Deanna Scale 3 - Moderate disability. Requiring some help, but able to walk without assistance. -AB 3 - Moderate disability. Requiring some help, but able to walk without assistance. -LC Row Name 08/08/25 0803 Modified Thomas Scale Modified Deanna Scale 0 - No Symptoms at all. -AC Row Name 08/08/25 1154 08/08/25 1100 Functional Assessment Outcome Measure Options AM-PAC 6 Clicks Basic Mobility (PT) -AB AM-PAC 6 Clicks Daily Activity (OT);Modified Thomas -LC User Benedict (r) = Recorded By, (t) = Taken By, (c) = Cosigned By Initials Name Provider Type [place], FRIDA Registered Nurse Ileana Ron, CYNDEE Occupational Therapist MG Mercedez Martinez RN Registered Nurse Julieta Lora, PT Physical Therapist Physical Therapy Education Title: PT OT GUEST SERVICE TEAM LEADER Therapies (In Progress) Topic: Physical Therapy (In Progress) Point: Mobility training (Done) Learning Progress Summary Patient Acceptance, E,D, VU,NR by at 08/08/2025 115 Point: Home exercise program (Not Started) Learner Progress: Not documented in this visit. Point: Body mechanics (Done) Learning Progress Summary Patient Acceptance, E,D, VU,NR by at 08/08/20251153 Point: Precautions (Done) Learning Progress Summary Patient Acceptance, E,D, VU,NR by at 08/08/20251153 User Benedict Initials Effective Dates Name Provider [...] Description Service Date Service Provider Modifiers Qty [id number] PT EVAL LOW COMPLEXITY 4 08/08/2025 Julieta Reese, PT GP 1 PT G-Codes Outcome Measure Options: AM-PAC 6 Clicks Basic Mobility (PT) AM-PAC 6 Clicks Score (PT): 19 AM-PAC 6 Clicks Score (OT): 19 Modified Thomas Scale: 3 - Moderate disability. Requiring some help, but able to walk without assistance. PT Discharge Summary Anticipated Discharge Disposition (PT): home with 24/7 care, home with outpatient therapy services Julieta Reese, GABRIEL 08/08/2025 [1] Patient Active Problem List Diagnosis Dizziness documented in this encounter Plan of Treatment Scheduled Referrals Name Type Priority Associated Diagnoses [...] 0.13 sec Ao root diam 3.1 cm CV ECHO SHUNT ASSESSMENT PERFORMED (HIDDEN SCRIPTING) [...] of agitated saline was administered. us Bianca C Banegas HAND BINDER STRIPPER CV ECHO ORDERABLES Final Res ult * MRI Brain Without Contrast (08/08/2025 4:54 PM EDT) Anatomical Region Laterality Modality Head, Neck N/A Magnetic Resonan ce 08/08/2025 5:00 PM EDT Impressions 08/08/2025 5:06 PM EDT Impression: No acute intracranial finding. Electronically Signed: Lorenzo Saravia MD 08/08/2025 5:06 PM EDT Workstation ID: [id number] Narrative 08/08/2025 5:06 PM EDT MRI BRAIN [...] MD 08/08/2025 5:06 PM EDT Workstation ID: [id number] Bianca Banegas HAND BINDER STRIPPER IMG MRI ORDERABLES Final Res ult * Fentanyl, Urine - Urine, Clean Catch (08/08/2025 8:58 AM EDT) Fentanyl, Urine Negative Negative 08/08/2025 10:12 AM EDT [facility] Urine Urine specimen obtained by clean catch procedure / Unknown Collection / Unknown 08/08/2025 8:58 AM EDT 08/08/2025 9:07 AM EDT Narrative [facility] - 08/08/2025 10:12 AM EDT Negative [...] Jackie Ndiaye MD URINE ORDERABLES Final Result [facility]
[address] [place] [address], * (ABNORMAL) Urine Drug Screen - Urine, Clean Catch (08/08/2025 8:58 AM EDT) THC, Screen, Urine Negative Negative 2024 9:19 AM EDT [facility] Phencyclidine (PCP), Urine Negative Negative 08/08/2025 9:19 AM EDT [facility] Cocaine Screen, Urine Negative Negative 08/08/2025 9:19 AM EDT [facility] Methamphetamine, Ur Negative Negative 08/08/2025 9:19 AM EDT [facility] Opiate Screen Negative Negative 08/08/2025 9:19 AM EDT [facility] Amphetamine Screen, Urine Negative Negative 08/08/2025 9:19 AM EDT [facility] Benzodiazepine Screen, Urine Positive(A) Negative 08/08/2025 9:19 AM EDT [facility] Tricyclic Antidepressants Screen Negative Negative 08/08/2025 9:19 AM EDT [facility] Methadone Screen, Urine Negative Negative 08/08/2025 9:19 AM EDT [facility] Barbiturates Screen, Urine Negative Negative 08/08/2025 9:19 AM EDT [facility] Oxycodone Screen, Urine Negative Negative 08/08/2025 9:19 AM EDT [facility] Buprenorphine, Screen, Urine Negative Negative 08/08/2025 9:19 AM EDT [facility] Urine Urine specimen obtained by clean catch procedure / Unknown Collection / Unknown 08/08/2025 8:58 AM EDT 08/08/2025 9:07 AM EDT Narrative [facility] - 08/08/2025 9:19 AM EDT Cutoff [...] test, particularly when unconfirmed results are used. us Jackie Ndiaye MD URINE ORDERABLES Final Result [facility]
[address] [place] [address], * CT Outside Neck (08/08/2025 8:56 AM EDT) Narrative SYSTEMGENERATED, DOCUMENTATION - 08/08/2025 8:56 AM EDT This procedure was auto-finalized with no dictation required. us Radiant Outside Films IMG CT ORDERABLES Final Re sult * CBC Auto Differential (08/08/2025 7:36 AM EDT) WBC 5.70 3.40 - 10.80 10*3/mm3 08/08/2025 8:01 AM EDT [facility] RBC 5.24 4.14 - 5.80 10*6/mm3 08/08/2025 8:01 AM EDT [facility] Hemoglobin 15.1 13.0 - 17.7 g/dL 08/08/2025 8:01 AM EDT [facility] Hematocrit 45.6 37.5 - 51.0 % 08/08/2025 8:01 AM EDT [facility] MCV 87.0 79.0 - 97.0 fL 08/08/2025 8:01 AM EDT [facility] MCH 28.8 26.6 - 33.0 pg 08/08/2025 8:01 AM EDT [facility] MCHC 33.1 31.5 - 35.7 g/dL 08/08/2025 8:01 AM EDT [facility] RDW 13.0 12.3 - 15.4 % 08/08/2025 8:01 AM EDT [facility] RDW-SD 40.9 37.0 - 54.0 fl 08/08/2025 8:01 AM EDT [facility] MPV 10.0 6.0 - 12.0 fL 08/08/2025 8:01 AM EDT [facility] Platelets 220 140 - 450 10*3/mm3 08/08/2025 8:01 AM EDT [facility] Neutrophil % 57.2 42.7 - 76.0 % 08/08/2025 8:01 AM EDT [facility] Lymphocyte % 30.2 19.6 - 45.3 % 08/08/2025 8:01 AM EDT [facility] Monocyte % 9.8 5.0 - 12.0 % 08/08/2025 8:01 AM EDT [facility] Eosinophil % 1.9 0.3 - 6.2 % 08/08/2025 8:01 AM EDT [facility] Basophil % 0.7 0.0 - 1.5 % 08/08/2025 8:01 AM EDT [facility] Immature Grans % 0.2 0.0 - 0.5 % 08/08/2025 8:01 AM EDT [facility] Neutrophils, Absolute 3.26 1.70 - 7.00 10*3/mm3 08/08/2025 8:01 AM EDT [facility] Lymphocytes, Absolute 1.72 0.70 - 3.10 10*3/mm3 08/08/2025 8:01 AM EDT [facility] Monocytes, Absolute 0.56 0.10 - 0.90 10*3/mm3 08/08/2025 8:01 AM EDT [facility] Eosinophils, Absolute 0.11 0.00 - 0.40 10*3/mm3 08/08/2025 8:01 AM EDT [facility] Basophils, Absolute 0.04 0.00 - 0.20 10*3/mm3 08/08/2025 8:01 AM EDT [facility] Immature Grans, Absolute 0.01 0.00 - 0.05 10*3/mm3 08/08/2025 8:01 AM EDT [facility] nRBC 0.0 0.0 - 0.2 /100 WBC 08/08/2025 8:01 AM EDT [facility] Blood Venipuncture / Unknown 08/08/2025 7:36 AM EDT 08/08/2025 7:52 AM EDT us Jackie Ndiaye MD LAB BLOOD ORDERABLES Final Resul t [facility]
[address] [place] [address], * TSH (08/08/2025 7:36 AM EDT) TSH 1.880 0.270 - 4.200 uIU/mL 08/08/2025 8:42 AM EDT [facility] Blood Venipuncture / Unknown 08/08/2025 7:36 AM EDT 08/08/2025 7:52 AM EDT Jackie Ndiaye MD LAB BLOOD ORDERABLES Final Resul t [facility]
[address] [place] [address], * Comprehensive Metabolic Panel (08/08/2025 7:36 AM EDT) Glucose 93 65 - 99 mg/dL 08/08/2025 8:42 AM EDT [facility] BUN 10.4 6.0 - 20.0 mg/dL 08/08/2025 8:42 AM EDT [facility] Creatinine 0.98 0.76 - 1.27 mg/dL 08/08/2025 8:42 AM EDT [facility] Sodium 141 136 - 145 mmol/L 08/08/2025 8:42 AM EDT [facility] Potassium 4.4 3.5 - 5.2 mmol/L 08/08/2025 8:42 AM EDT [facility] Chloride 104 98 - 107 mmol/L 08/08/2025 8:42 AM EDT [facility] CO2 27.2 22.0 - 29.0 mmol/L 08/08/2025 8:42 AM EDT [facility] Calcium 9.3 8.6 - 10.5 mg/dL 08/08/2025 8:42 AM EDT [facility] Total Protein 6.9 6.0 - 8.5 g/dL 08/08/2025 8:42 AM EDT [facility] Albumin 4.3 3.5 - 5.2 g/dL 08/08/2025 8:42 AM EDT [facility] ALT (SGPT) 26 1 - 41 U/L 08/08/2025 8:42 AM EDT [facility] AST (SGOT) 24 1 - 40 U/L 08/08/2025 8:42 AM EDT [facility] Alkaline Phosphatase 47 39 - 117 U/L 08/08/2025 8:42 AM EDT [facility] Total Bilirubin 0.8 0.0 - 1.2 mg/dL 08/08/2025 8:42 AM EDT [facility] Globulin 2.6 gm/dL 08/08/2025 8:42 AM T [facility] Comment:Calculated Result A/G Ratio 1.7 g/dL 08/08/2025 8:42 AM [facility] BUN/Creatinine Ratio 10.6 7.0 - 25.0 08/08/2025 8:42 AM T [facility] Anion Gap 9.8 5.0 - 15.0 mmol/L 08/08/2025 8:42 AM [facility] eGFR 95.7 >60.0 mL/min/1.7 3 08/08/2025 8:42 AM [facility] Blood Venipuncture / Unknown 08/08/2025 7:36 AM EDT 08/08/2025 7:52 AM EDT [facility] - 08/08/2025 8:42 AM EDT [...] MD LAB BLOOD ORDERABLES Final Resul t [facility]
[address] [place] [address], * (ABNORMAL) Lipid Panel (08/08/2025 7:36 AM EDT) Total Cholesterol 184 0 - 200 mg/dL 08/08/2025 8:42 AM EDT [facility] Triglycerides 87 0 - 150 mg/dL 08/08/2025 8:42 AM EDT [facility] HDL Cholesterol 42 40 - 60 mg/dL 08/08/2025 8:42 AM EDT [facility] LDL Cholesterol 126(H) 0 - 100 mg/dL 08/08/2025 8:42 AM EDT [facility] VLDL Cholesterol 16 5 - 40 mg/dL 08/08/2025 8:42 AM EDT [facility] LDL/HDL Ratio 2.97 08/08/2025 8:42 AM EDT [facility] Blood Venipuncture / Unknown 08/08/2025 7:36 AM EDT 08/08/2025 7:52 AM EDT Narrative [facility] - 08/08/2025 8:42 AM EDT [...] is calculated using the NIH LDL-C calculation. us Bianca Banegas HAND BINDER STRIPPER LAB BLOOD ORDERABLES Final R esult Performing Organization Address City/[facility]/ZIP Co de Phone Number [facility]
[address] [place] [address], [place] [phone] * Hemoglobin A1c (08/08/2025 7:36 AM EDT) Hemoglobin A1C 5.53 4.80 - 5.60 % 08/08/2025 8:30 AM EDT [facility] Blood Venipuncture / Unknown 08/08/2025 7:36 AM EDT 08/08/2025 8:15 AM EDT Narrative [facility] - 08/08/2025 8:30 AM EDT Hemoglobin A1C Ranges: Increased Risk for Diabetes 5.7% to 6.4% Diabetes >= 6.5% Diabetic Goal < 7.0% Bianca Banegas HAND BINDER STRIPPER LAB BLOOD ORDERABLES Final R esult Performing Organization Address City/[facility] Co de Phone Number [facility]
[address] [place] [address], * CT Outside Head (08/07/2025 12:10 AM [...] Wed08/08/25 at 0900, If patient fails dysphagia, MS option MUST be given. Do not exceed [...] Wed08/08/25 at 0900, If patient fails dysphagia, MS option MUST be given. Do not exceed [...] Wed08/08/25 at 0900, If patient fails dysphagia, MS option MUST be given. Do not exceed [...] Martinez RN) 0812 (Given - Provider: Desirae Horton RN) aspirin suppository 300 mg(Linked Group 1) 300 mg, Rectal, Daily, First dose on Wed08/08/25 at 0900, If patient fails dysphagia, MS option MUST be given. Do not exceed [...] the drug was given by any route/form. 49 (Not Given - Provider: Mercedez Martinez RN - Reason: Patient/family refused) magnesium sulfate 2g/50 mL (PREMIX) infusion (COMPLETED) 2 g, Intravenous, Once, On Wed08/08/25 at 0800, For 1 dose 0848 (New Bag - Provider: Mercedez Martinez RN) prochlorperazine (COMPAZINE) injection 10 mg [...] Mercedez Martinez RN)2044 (Given - Provider: Jolene Zambrano, FRIDA) 0814 (Given - Provider: Desirae Horton RN) PRN Medication Order 08/07/2025 08/08/2025 08/09/2025 acetaminophen [...] Wed08/08/25 at 0900, If patient fails dysphagia, MS option MUST be given. Do not exceed [...] Wed08/08/25 at 0900, If patient fails dysphagia, MS option MUST be given. Do not exceed 4 grams of aspirin in a 24 hr period. If given for pain, use the following pain scale: Mild Pain = Pain Score of 1-3, CPOT 1-2 Moderate Pain = Pain Score of 4-6, CPOT 3-4 Severe Pain = Pain Score of 7-10, CPOT 5-8 documented in this encounter
--- OUTSIDE RECORDS SUMMARY | 2025-08-13 13:15 | XMS_ITS | Encounter Summary ---
Author Organization [place] [address] Care Team Providers Care Paleologist Name Role Phone Dashawn Barahona MD Primary Care Provider [phone] Reason for Visit * Reason Comments Hospital Follow Up Discharged on 08/09 Encounter Details Date Type Department Care Team (Late st Contact Info) Description 08/13/2025 1:15 PM EDT Office Visit [facility] [place] [address] 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 He occasionally requires assistance to [...] The provider educated the patient (or legal patient intake representative) on the use of the ambient listening artificial intelligence tool, Medstro. They were informed that this AI tool [...] of such information, the patient (or legal patient intake representative), and each individual in attendance with [...] ORDERABLES Final Re sult [facility], [facility] [address] , [place] [address] * BASIC METABOLIC PANEL (08/13/2025 1:27 PM EDT) Sodium 140 136 - 145 mmol/L 08/13/2025 9:20 PM EDT [facility] Potassium 4.9 3.5 - 5.0 mmol/L 08/13/2025 9:20 PM EDT [facility] Chloride 103 98 - 107 mmol/L 08/13/2025 9:20 PM EDT [facility] Total CO2 25 22 - 29 mmol/L [...] 08/13/2025 9:20 PM EDT [facility] Comment:Estimated GFR was ca lculated using the CKD-EPIcr (2020) equation refit without race. The equation is recommended by the National Kidney Foundation - [place] [employer] of Nephrology Task Force. Blood VENOUS BLOOD / Unknown Venipuncture / Unknown 08/13/2025 1:27 PM EDT 08/13/2025 1:27 PM EDT us Dashawn Barahona MD CHEMISTRY ORDERABLES Final Res ult Performing Organization Address City/[facility]/ZIP Co de Phone Number [facility] [address] [address] , [place] [address] * HEMOGLOBIN A1C (08/13/2025 1:27 PM EDT) Hgb A1C 5.6 4.2 - 5.6 % 08/13/2025 10:02 PM EDT [facility] Est. Avg Glucose 114 mg/dL 08/13/2025 10:02 PM EDT [facility] Blood VENOUS BLOOD / Unknown Venipuncture / Unknown 08/13/2025 1:27 PM EDT 08/13/2025 1:27 PM EDT Narrative [facility] - 08/13/2025 10:02 PM EDT REFERENCE RANGE: Normal: 4.0-5.6% Pre-diabetes: 5.7-6.4% Provisional diagnosis of diabetes: >6.4% Hgb F>10% and anything which shortens red cell survival, such as hemolytic anemia, or unstable hemoglobin variants such as HbSS, HbSC, or HbCC, will lower the HbA1c value associated with a given level of glycemic control. us Dashawn Barahona MD CHEMISTRY ORDERABLES Final Res ult [facility] [address] [place] [address] , [place] [address] documented in this encounter Visit [...] dizziness added in this encounter Care Teams Paleologist Relationship Specialty Start Date End Date Dashawn Barahona MD [address] [place] [address] [place] [address] PCP - General Family Medicine 06/24/21 documented as of this encounter
--- NOTE | 2025-08-15 | CA_ITS ---
APPROVED REPORT Exam: Pharmacologic Technologist: Priyanka Montalvo Stress Nurse: Sara PATEL, RN Ht: 5 ft 7 in Wt: 182 lbs BSA: 1.94 m2 HR: 67 bpm BP: 116/77 mmHg Indications: Dizziness, Hypertension, Tachycardia Stress Test Details Test: Lexiscan HR Resting HR: 67 bpm Max Heart Rate (APMHR): 173.829121 bpm Max HR Achieved: 123 bpm Target HR (85% APMHR): 147.286532 bpm % of APMHR: 71.10 Recovery HR: 98 bpm BP Resting BP: 116.0/77.0 mmHg Max BP: 133.0/74.0 mmHg Recovery BP: 133.0/74.0 mmHg ECG Stress ECG Conclusion Lungs clear to auscultation prior to test start. Symptoms: Abdominal discomfort Arrhythmias/Ectopy: PAC ST-T Changes: Less than 0.[address] segment changes. Conclusion: Nondiagnostic ECG/Lexiscan Electronically signed by : Leanne Giraldo MD 08/15/2025 12:24:26
--- OUTSIDE RECORDS SUMMARY | 2025-08-15 06:48 | XMS_ITS | Encounter Summary ---
Author Organization [place] [address] Care Team Providers Care Manufacturing Controls Engineer Name Role Phone Dashawn Barahona MD Primary Care Provider Reason for Visit * Reason Onset Date Comments Relaying Information 08/10/2025 Pt going to hospital Encounter Details Date Type Department Care Team (Late st Contact Info) Description 08/10/2025 Telephone SEP Richard [address] [place] [address] Dashawn Barahona MD [address] [place] [address] [place] [address] Relaying Information (Pt going to hospital ) [...] EDT fyi * Telephone Encounter - Radha Hoewll LPN - 08/10/2025 9:22 AM EDT Select [...] was 47. Pt is being [facility] to [facility]. Further action needed: No Additional Information:N/A [...] filedocumented in this encounter Care Teams Manufacturing Controls Engineer Relationship Specialty Start Date End Date Dashawn Barahona MD [address] [facility] [place] [address] PCP - General Family Medicine 06/24/21 documented as of this encounter
--- OUTSIDE RECORDS SUMMARY | 2025-08-15 06:48 | XMS_ITS | Encounter Summary ---
Author Organization [place] [address] Care Team Providers Care It Infrastructure Manager Name Role Phone Dashawn Barahona MD Primary Care Provider [phone] Reason for Visit * Reason Onset Date Comments Symptoms (Only Use If Pt Pus hes Back On Scheduling A Visit) 08/10/2025 BP 140/103 dizzy Dizziness 08/10/2025 Hypertension 08/10/2025 Encounter Details Date Type Department Care Team (Late st Contact Info) Description 08/10/2025 Nurse Triage SEP [place] [place] [address] Dashawn Barahona MD [address] [place] [address] [place] [address] Social History Tobacco Use Types Packs/Day Years [...] left side of body. Patient d/c'd from [facility] recently and stroke workup negative-- mentioned therewas [...] of speech or garbled speech Protocols used: [id number] * Telephone Encounter - Ashvin Rosas RMA [...] help? Yes (remember to route this message [facility] Nurse Triage Guild # [id number]) Additional Information: N/A documented in [...] on filedocumented in this encounter Care Teams It Infrastructure Manager Relationship Specialty Start Date End Date Dashawn Barahona MD [address] [place] [address] [place] [address] PCP - General Family Medicine 06/24/21 documented as of this encounter
--- OUTSIDE RECORDS SUMMARY | 2025-08-15 06:48 | XMS_ITS | Clinical Summary ---
Author Organization [facility] Address [address] [place] [address] Phone Care Team Providers Care 8Th Grade Teacher Name Role Phone Dashawn Barahona MD Primary Care Provider [phone] Allergies No known active allergies Medications fluticasone propionate (FLONASE) 50 mcg/actuation Nasl Sycamore, SuspensionIndica tions:Eustachian tube dysfunction, bilateral 1 Sycamore by Nasal route daily. 16 mL 2 4 Active Additional Information Patient not taking.Reported on 08/13/2025 cetirizine (ZYRTEC) 10 mg Oral TabletIndication s:Eustachian tube dysfunction, bilateral TAKE 1 TABLET BY MOUTH EVERY DAY 30 Tablet 2 4 Active Additional Information Patient not taking.Reported on 08/13/2025 meclizine (ANTIVERT) 25 mg Oral Tablet Take 25 mg by mouth 3 times daily as needed. for dizziness Active olmesartan (BENICAR) 20 mg Oral TabletIndication s:Essential hypertension Take 1 Tablet by mouth daily. 90 Tablet 3 5 Active Active Problems Problem Noted Date Diagnosed Date Essential hypertension 08/13/2025 Assessment & Plan (08/13/2025 1:23 PM EDT): Orders: olmesartan (BENICAR) 20 mg Oral Tablet; Take 1 Tablet by mouth daily. 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 misuser in household 09/18/2017 Hypertriglyceridemia 11/08/2015 Encounters Date Type Department Care Team Description 08/14/2025 Results Follow-Up [address] [place] [address] Dashawn Barahona MD HEMOGLOBIN A1C, BASIC METABOLIC PANEL, CBC 08/13/2025 1:15 PM EDT Office Visit [address] [place] [address] Dashawn Barahona MD Essential hypertension (Primary Dx); Dizziness; Near syncope; Prediabetes 08/13/[address] [place] [address] Dashawn Barahona MD Orders (EEG ) 08/10/[address] [place] [address] Dashawn Barahona MD Relaying Information (Pt going to hospital ) 08/10/2025 Nurse Triage [address] [place] [address] Dashawn Barahona MD from Last 3 Months [...] Mass Index 28.35 08/13/2025 1:02 PM EDT Plan of Treatment Health Maintenance [...] Castañeda LPN Stay Tobacco Free Lifestyle No Rice, Rianna, DIGITAL LEARNING PLATFORMS MANAGER Procedures Procedure Name Priority Date/Time Associated Diagnosis Comments CBC Routine 08/13/2025 1:27 PM EDT Dizziness BASIC METABOLIC PANEL Routine 08/13/2025 1:27 PM EDT Dizziness Near syncope Prediabetes HEMOGLOBIN A1C Routine 08/13/2025 1:27 PM EDT Dizziness Near syncope Prediabetes COLONOSCOPY Routine 05/19/2024 9:18 AM EDT Screening for colon cancer from Last 3 Months or Most Recently Relevant to Health Maintenance Results * (ABNORMAL) CBC (08/13/2025 1:27 PM [...] 1:27 PM EDT 08/13/2025 1:27 PM EDT Dashawn Barahona MD HEMATOLOGY ORDERABLES Final Re sult Performing Organization Address [facility] de Phone Number [facility] [employer] [address] , [address] [place] [phone] * HEMOGLOBIN A1C (08/13/2025 1:27 PM EDT) Hgb A1C 5.6 4.2 - 5.6 % 08/13/2025 10:02 PM EDT [facility]REFERRED [facility] [employer] Est. Avg Glucose 114 mg/dL 08/13/2025 10:02 PM EDT [facility] [facility] Blood VENOUS BLOOD / Unknown Venipuncture / Unknown 08/13/2025 1:27 PM EDT 08/13/2025 1:27 PM EDT Narrative [facility] [employer] [facility] - 08/13/2025 10:02 PM EDT REFERENCE RANGE: Normal: 4.0-5.6% Pre-diabetes: 5.7-6.4% Provisional diagnosis of diabetes: >6.4% Hgb F>10% and anything which shortens red cell survival, such as hemolytic anemia, or unstable hemoglobin variants such as HbSS, HbSC, or HbCC, will lower the HbA1c value associated with a given level of glycemic control. Dashawn Barahona MD CHEMISTRY ORDERABLES Final Res ult Performing Organization Address [facility] Co de Phone Number [facility] [employer], [address] , [place] [address] * BASIC METABOLIC PANEL (08/13/2025 1:27 PM EDT) Sodium 140 136 - 145 mmol/L 08/13/2025 9:20 PM EDT [facility] Potassium 4.9 3.5 - 5.0 mmol/L 08/13/2025 9:20 PM EDT [facility] Chloride 103 98 - 107 mmol/L 08/13/2025 9:20 PM EDT [facility]REF[facility] Total CO2 25 22 - 29 mmol/L 08/13/2025 9:20 PM EDT [facility] Anion Gap 12 7 - 16 mmol/L 08/13/2025 9:20 PM EDT [facility]REF[facility]ED [facility] Calcium 10.4 8.6 - 10.4 mg/dL 08/13/2025 9:20 PM EDT [facility] Glucose Lvl 94 70 - 99 mg/dL 08/13/2025 9:20 PM EDT [facility] BUN 12 6 - 20 mg/dL 08/13/2025 9:20 PM EDT [facility] Creatinine 1.10 0.67 - 1.30 mg/dL 08/13/2025 9:20 PM EDT [facility] eGFR (CKD-EPIcr 2020) 83 >=60 mL/min/1.7 3 m2 08/13/2025 9:20 PM EDT [facility] Comment:Estimated GFR was ca lculated using the CKD-EPIcr (2020) equation refit without race. The equation is recommended by the National Kidney Foundation - [place] Society of Nephrology Task Force. Blood VENOUS BLOOD / Unknown Venipuncture / Unknown 08/13/2025 1:27 PM EDT 08/13/2025 1:27 PM EDT us Dashawn Barahona MD CHEMISTRY ORDERABLES Final Res ult [facility] [address] [facility] , [address] [place] [id number] * COLONOSCOPY (05/19/2024 9:18 AM EDT) Anatomical [...] cancer Staff Staff Role Yair Brunner CRNA BILINGUAL MEDICAL ASSISTANT Fatuma Golden, settlement worker Nurse Dimitrios Fraser, FR[place] Accounting Officer Natalie Catherine, settlement worker Nurse Magda Kothari MD Anesthesiologist Johny Cole [...] Most Recently Relevant to Health Maintenance Insurance [facility] [id number] Advance Directives For more information, please contact: [phone] * Full Code (Latest Code Status on File) Date Activated Date Inactivated Comments 09/18/2017 3:03 AM 09/19/2017 8:09 PM Care Teams 8Th Grade Teacher Relationship Specialty Start Date End Date Dashawn Barahona MD [address] [place] [address] [place] [address] PCP - General Family Medicine 06/24/21
--- OUTSIDE RECORDS SUMMARY | 2025-08-15 06:48 | XMS_ITS | Encounter Summary ---
Author Organization [facility] Address [address] [place] [address] Care Team Providers Care Airplane Designer Name Role Phone Unavailable Primary Care Provider [...] care, and heating? Not very hard 08/08/2025 [facility] of Occupat ional Health - Occupational Stress [...] for daily living? No 08/08/2025 [facility] Utilities Answer Date Recorded In the [...] GED or equivalent No 08/08/2025 Preferred Language German 08/08/2025 PHQ-2 Answer Date Recorded Patient Health [...] 8:34 AM EDT Mercedez Roland RN * Superior Suicide Severity Rating Scale (Screener/Recent Self-Report) Question [...]
--- OUTSIDE RECORDS SUMMARY | 2025-08-15 06:48 | XMS_ITS | Clinical Summary ---
Author Organization [facility] Address [address] [place] [address] Care Team Providers Care Accounts Supervisor Name Role Phone Unavailable Primary Care Provider [...] - 08/09/2025 3:22 PM EDT Hospital Encounter [address] [place] [phone] Chip Adams MD Barbato, Hayley R, DO [...] care, and heating? Not very hard 08/08/2025 [facility] of Occupat ional Health - Occupational Stress [...] GED or equivalent No 08/08/2025 Preferred Language Macanese 08/08/2025 PHQ-2 Answer Date Recorded Patient Health [...] COLOR FLOW (08/09/2025 1:21 PM EDT) Pathologist [facility] EF(MOD-bp) 62.0 % LVIDd 4.2 cm LVIDs [...] agitated saline was administered. us Bianca Banegas FURNACE WORKER CV ECHO ORDERABLES Final Res ult * MRI Brain Without Contrast (08/08/2025 4:54 PM EDT) Anatomical Region Laterality Modality Head, Neck N/A Magnetic Resonan ce 08/08/2025 5:00 PM EDT Impressions 08/08/2025 5:06 PM EDT Impression: No acute intracranial finding. Electronically Signed: Lorenzo Saravia MD 08/08/2025 5:06 PM EDT Workstation ID: [id number] Narrative 08/08/2025 5:06 PM EDT MRI BRAIN [...] MD 08/08/2025 5:06 PM EDT Workstation ID: [id number] us Bianca Banegas FURNACE WORKER IMG MRI ORDERABLES Final Res ult * (ABNORMAL) Urine Drug Screen - Urine, Clean Catch (08/08/2025 8:58 AM EDT) THC, Screen, Urine Negative Negative 2024 9:19 AM EDT [facility] Phencyclidine (PCP), Urine Negative Negative 08/08/2025 9:19 AM EDT [facility] Cocaine Screen, Urine Negative Negative 08/08/2025 9:19 AM EDT [facility] Methamphetamine, Ur Negative Negative 08/08/2025 9:19 AM EDT [facility] Opiate Screen Negative Negative 08/08/2025 9:19 AM EDT [facility] Amphetamine Screen, Urine Negative Negative 08/08/2025 9:19 AM EDT [facility] Benzodiazepine Screen, Urine Positive(A) Negative 08/08/2025 9:19 AM EDT [facility] Tricyclic Antidepressants Screen Negative Negative 08/08/2025 9:19 AM EDT [facility] Methadone Screen, Urine Negative Negative 08/08/2025 9:19 AM EDT [facility] Barbiturates Screen, Urine Negative Negative 08/08/2025 9:19 AM EDT [facility] Oxycodone Screen, Urine Negative Negative 08/08/2025 9:19 AM EDT [facility] Buprenorphine, Screen, Urine Negative Negative 08/08/2025 9:19 AM EDT [facility] Urine Urine specimen obtained by clean catch procedure / Unknown Collection / Unknown 08/08/2025 8:58 AM EDT 08/08/2025 9:07 AM EDT [facility] - 08/08/2025 9:19 AM [...] Rose Casey MD URINE ORDERABLES Final Result [facility]
[address] [place] [address], * Fentanyl, Urine - Urine, Clean Catch (08/08/2025 8:58 AM EDT) Fentanyl, Urine Negative Negative 08/08/2025 10:12 AM EDT [facility] Urine Urine specimen obtained by clean catch procedure / Unknown Collection / Unknown 08/08/2025 8:58 AM EDT 08/08/2025 9:07 AM EDT [facility] - 08/08/2025 10:12 AM [...] Rose Casey MD URINE ORDERABLES Final Result [facility]
[address] [place] [address], [place] [phone] * CT Outside Neck (08/08/2025 8:56 AM EDT) Narrative SYSTEMGENERATED, DOCUMENTATION - 08/08/2025 8:56 AM EDT This procedure was auto-finalized with no dictation required. us [employer] Outside Films IMG CT ORDERABLES Final Re sult * CBC Auto Differential (08/08/2025 7:36 AM EDT) WBC 5.70 3.40 - 10.80 10*3/mm3 08/08/2025 8:01 AM EDT [facility] RBC 5.24 4.14 - 5.80 10*6/mm3 08/08/2025 8:01 AM EDT [facility] Hemoglobin 15.1 13.0 - 17.7 g/dL 08/08/2025 8:01 AM EDT [facility] Hematocrit 45.6 37.5 - 51.0 % 08/08/2025 8:01 AM EDT [facility] MCV 87.0 79.0 - 97.0 fL 08/08/2025 8:01 AM EDT [facility] MCH 28.8 26.6 - 33.0 pg 08/08/2025 8:01 AM EDT [facility] MCHC 33.1 31.5 - 35.7 g/dL 08/08/2025 8:01 AM EDT [facility] RDW 13.0 12.3 - 15.4 % 08/08/2025 8:01 AM EDT [facility] RDW-SD 40.9 37.0 - 54.0 fl 08/08/2025 8:01 AM [facility] MPV 10.0 6.0 - 12.0 fL 08/08/2025 8:01 AM [facility] Platelets 220 140 - 450 10*3/mm3 08/08/2025 8:01 AM [facility] Neutrophil % 57.2 42.7 - 76.0 % 08/08/2025 8:01 AM [facility] Lymphocyte % 30.2 19.6 - 45.3 % 08/08/2025 8:01 AM [facility] Monocyte % 9.8 5.0 - 12.0 % 08/08/2025 8:01 AM [facility] Eosinophil % 1.9 0.3 - 6.2 % 08/08/2025 8:01 AM [facility] Basophil % 0.7 0.0 - 1.5 % 08/08/2025 8:01 AM [facility] Immature Grans % 0.2 0.0 - 0.5 % 08/08/2025 8:01 AM [facility] Neutrophils, Absolute 3.26 1.70 - 7.00 10*3/mm3 08/08/2025 8:01 AM [facility] Lymphocytes, Absolute 1.72 0.70 - 3.10 10*3/mm3 08/08/2025 8:01 AM [facility] Monocytes, Absolute 0.56 0.10 - 0.90 10*3/mm3 08/08/2025 8:01 AM [facility] Eosinophils, Absolute 0.11 0.00 - 0.40 10*3/mm3 08/08/2025 8:01 AM [facility] Basophils, Absolute 0.04 0.00 - 0.20 10*3/mm3 08/08/2025 8:01 AM [facility] Immature Grans, Absolute 0.01 0.00 - 0.05 10*3/mm3 08/08/2025 8:01 AM [facility] nRBC 0.0 0.0 - 0.2 /100 WBC 08/08/2025 8:01 AM EDT [facility] Blood Venipuncture / Unknown 08/08/2025 7:36 AM EDT 08/08/2025 7:52 AM EDT Rose Casey MD LAB BLOOD ORDERABLES Final Resul t Performing Organization Address City/[facility]/ZIP Co de Phone Number [facility]
[address] [place] [address], * TSH (08/08/2025 7:36 AM EDT) TSH 1.880 0.270 - 4.200 uIU/mL 08/08/2025 8:42 AM EDT [facility] Blood Venipuncture / Unknown 08/08/2025 7:36 AM EDT 08/08/2025 7:52 AM EDT Rose Casey MD LAB BLOOD ORDERABLES Final Resul t Performing Organization Address City/[facility] de Phone Number [facility]
[address] [place] [address], * Hemoglobin A1c (08/08/2025 7:36 AM EDT) Hemoglobin A1C 5.53 4.80 - 5.60 % 08/08/2025 8:30 AM EDT [facility] Blood Venipuncture / Unknown 08/08/2025 7:36 AM EDT 08/08/2025 8:15 AM EDT Narrative [facility] - 08/08/2025 8:30 AM EDT Hemoglobin A1C Ranges: Increased Risk for Diabetes 5.7% to 6.4% Diabetes >= 6.5% Diabetic Goal < 7.0% Bianca Banegas APRN LAB BLOOD ORDERABLES Final R esult Performing Organization Address City/[facility] Co de Phone Number [facility]
[address] [place] [address], * (ABNORMAL) Lipid Panel (08/08/2025 7:36 AM EDT) Total Cholesterol 184 0 - 200 mg/dL 08/08/2025 8:42 AM EDT [facility] Triglycerides 87 0 - 150 mg/dL 08/08/2025 8:42 AM EDT [facility] HDL Cholesterol 42 40 - 60 mg/dL 08/08/2025 8:42 AM EDT [facility] LDL Cholesterol 126(H) 0 - 100 mg/dL 08/08/2025 8:42 AM EDT [facility] VLDL Cholesterol 16 5 - 40 mg/dL 08/08/2025 8:42 AM EDT [facility] LDL/HDL Ratio 2.97 08/08/2025 8:42 AM EDT [facility] Blood Venipuncture / Unknown 08/08/2025 7:36 AM EDT 08/08/2025 7:52 AM EDT Narrative [facility] - 08/08/2025 8:42 AM [...] the NIH LDL-C calculation. Bianca Ramiro Banegas FURNACE WORKER LAB BLOOD ORDERABLES Final R esult [facility]
[address] [place] [id number], * Comprehensive Metabolic Panel (08/08/2025 7:36 AM EDT) [facility] Signature Glucose 93 65 - 99 mg/dL 08/08/2025 8:42 AM EDT [facility] BUN 10.4 6.0 - 20.0 mg/dL 08/08/2025 8:42 AM EDT [facility] Creatinine 0.98 0.76 - 1.27 mg/dL 08/08/2025 8:42 AM EDT [facility] Sodium 141 136 - 145 mmol/L 08/08/2025 8:42 AM EDT [facility] Potassium 4.4 3.5 - 5.2 mmol/L 08/08/2025 8:42 AM EDT [facility] Chloride 104 98 - 107 mmol/L 08/08/2025 8:42 AM EDT [facility] CO2 27.2 22.0 - 29.0 mmol/L 08/08/2025 8:42 AM EDT [facility] Calcium 9.3 8.6 - 10.5 mg/dL 08/08/2025 8:42 AM EDT [facility] Total Protein 6.9 6.0 - 8.5 g/dL 08/08/2025 8:42 AM EDT [facility] Albumin 4.3 3.5 - 5.2 g/dL 08/08/2025 8:42 AM EDT [facility] ALT (SGPT) 26 1 - 41 U/L 08/08/2025 8:42 AM EDT [facility] AST (SGOT) 24 1 - 40 U/L 08/08/2025 8:42 AM EDT [facility] Alkaline Phosphatase 47 39 - 117 U/L 08/08/2025 8:42 AM EDT [facility] Total Bilirubin 0.8 0.0 - 1.2 mg/dL 08/08/2025 8:42 AM EDT [facility] Globulin 2.6 gm/dL 08/08/2025 8:42 AM EDT [facility] Comment:Calculated Result A/G Ratio 1.7 g/dL 08/08/2025 8:42 AM EDT [facility] BUN/Creatinine Ratio 10.6 7.0 - 25.0 08/08/2025 8:42 AM EDT [facility] Anion Gap 9.8 5.0 - 15.0 mmol/L 08/08/2025 8:42 AM EDT [facility] eGFR 95.7 >60.0 mL/min/1.7 3 08/08/2025 8:42 AM EDT [facility] Blood Venipuncture / Unknown 08/08/2025 7:36 AM EDT 08/08/2025 7:52 AM EDT Narrative [facility] - 08/08/2025 8:42 AM [...] MD LAB BLOOD ORDERABLES Final Resul t [facility]
[address] [place] [address], * CT Outside Head (08/07/2025 12:10 AM [...] Re sult from Last [address] [place] [address] [place] [address] Advance Directives * CPR (Attempt to Resuscitate) [...]
--- OUTSIDE RECORDS SUMMARY | 2025-08-15 06:48 | XMS_ITS | Encounter Summary ---
Author Organization [place] [address] Care Team Providers Care Maintenance Engineer Oil Field Name Role Phone Dashawn Barahona MD Primary Care Provider [phone] Encounter Details Date Type Department Care Team (Late st Contact Info) Description 08/14/2025 Results Follow-Up [facility] Richard [address] [place] [address] Dashawn Barahona MD [address] [place] [address] [place] [address] HEMOGLOBIN A1C, BASIC METABOLIC PANEL, CBC Social [...] on filedocumented in this encounter Care Teams Maintenance Engineer Oil Field Relationship Specialty Start Date End Date Dashawn Barahona MD [address] [place] [address] [place] [address] PCP - General Family Medicine 06/24/21 documented as of this encounter
--- OUTSIDE RECORDS SUMMARY | 2025-08-15 06:48 | XMS_ITS | Clinical Summary ---
Author Organization Healthcare Address [address] [place] [address] Care Team Providers Care Yarn Rewinder Name Role Phone Estefani Asencio DDS Unavailable [phone] Pcp, No Primary Care Provider Unavailabl e [...] 2023 Sigmoidoscopy 2023 [facility]-Colorectal Cancer Screening 2023 [id number] Vaccine (3 - 2024- season) 2025 07/27/2021, [...] patient's age to complete this topic [place] [address] [place] [address] Care Teams Yarn Rewinder Relationship Specialty Start Date End Date Pcp, Nathalia [address] [place] [address] PCP - General Family Medicine 08/08/24 Estefani Asencio DDS [address] [facility] [address] [place] [address] Dentist Dentist 07/03/24
--- OUTSIDE RECORDS SUMMARY | 2025-08-15 06:48 | XMS_ITS | Encounter Summary ---
Author Organization [place] [address] Care Team Providers Care Envelope Adjuster Name Role Phone Dashawn Barahona MD Primary Care Provider [phone] Reason for Visit * Reason Onset Date Comments Orders 08/13/2025 EEG Encounter Details Date Type Department Care Team (Late st Contact Info) Description 08/13/2025 Telephone SEP Richard [address] [place] [address] Dashawn Barahona MD [address] [place] [address] [place] [address] Orders (EEG ) Social History Tobacco Use [...] supposed to follow-up with the neurologist at [facility] that he has already been seeing [...] Is patient waiting at lab/hospital/facility: No If [facility], where should the order be faxed to (include fax number and facility name): [phone] [facility] Upcoming PCP appointment date: None - [...] on filedocumented in this encounter Care Teams Envelope Adjuster Relationship Specialty Start Date End Date Dashawn Barahona MD [address] [place] [address] [place] [address] PCP - General Family Medicine 06/24/21 documented as of this encounter
--- OUTSIDE RECORDS SUMMARY | 2025-08-15 06:49 | XMS_ITS | Encounter Summary ---
Author Organization Healthcare Address [address] [place] [id number] Care Team Providers Care Wardrobe Manager Name Role Phone Estefani Asencio DDS Unavailable [phone] Pcp, No Primary Care Provider Unavailabl e Reason for Referral * Consultation (Routine) - Closed Specialty Diagnoses / Procedures Referred By Contgal t Referred To Contact Dentist / Pain Medicine Diagnoses Obstructive sleep apnea (adult) (pediatric) Leda Khan MD [address] [place] [address] [employer] [place] [address] Phone: tel: fax: Marce Milligan, DDS [address] [place] [address] Phone: tel: fax: Referral ID Status Reason Start Date Expiration Date Visits Re quested Visits Authorized [id number] Closed 06/15/2024 12/15/2025 1 1 Encounter Details Date Type Department Care Team (Late st Contact Info) Description 06/15/2024 Community [facility] [address] [place] [address] Leda Khan MD [address] [place] [address] [employer] [place] [address] Obstructive sleep apnea [...] Primary documented in this encounter Care Teams Wardrobe Manager Relationship Specialty Start Date End Date Pcp, Nathalia [address] [place] [address] PCP - General Family Medicine 08/08/24 Estefani Asencio DDS [address] [facility] [[email or web address] [address] [place] [address] Dentist Dentist 07/03/24 documented as of this encounter
--- NOTE | 2025-08-15 07:00 | NM_ITS ---
APPROVED REPORT Exam: Nuclear Stress Test Indication: Palpitations, HTN, Family history Patient Location: Outpatient Stress Tech: Priyanka Montalvo [place] Tech:Adiakarel Ron, ARRT, RT (R)(N) Ht: 5 ft 7 in Wt: 181 lbs HR: 84 bpm BP: 116/77 mmHg BSA: 1.94 m2 TID: 1.16 BMI: 28.3 History: Palpitations, HTN, Family history Procedure: Patient received 0.4 mg of intravenous Lexiscan, resting heart rate 84 bpm, resting blood pressure 116/77 mmHg, with Lexiscan maximum heart rate achieved was 123 bpm which is % of the maximum predicted heart rate and blood pressure was 133/74 mmHg. With Lexiscan, patient denied any complaint of chest pain. Cardiac Stress and Resting SPECT Images: Cardiac Stress and Resting SPECT images were obtained using technetium 99m Myoview 32.5 mCi stress and 10.93 mCi at rest. Resting and stress imaging in supine and prone positions demonstrate no evidence of fixed or reversible perfusion defects. Gated imaging demonstrates normal global and regional LV systolic function. LVEF is calculated at 54%. Conclusion: No evidence of fixed or reversible perfusion defects. Gated imaging demonstrates normal global and regional LV systolic function. LVEF is calculated at 54%. Electronically signed by : Leanne Giraldo MD 08/15/2025 23:57:23
[2025-08-15 08:15] VITALS: BP 116/77; PULSE 67; RESP 14
[2025-08-15] MEDS: SODIUM CHLORIDE 0.9% 10ML SYR (RAD ONLY) 10 ML IV ×2 (08:35)
[2025-08-15] MEDS: ISOTOPE MYOVIEW (PER STUDY) 1 DOSE IV (08:35)
== END 2025-08-15 23:59 | disposition home or self-care (01) ==
LOC: RAD 06:46
PROVIDERS: PCP Family Medicine; Visit Provider Physician Assistant
DX: I49.1 Atrial premature depolarization (principal); I10 Essential (primary) hypertension; R00.0 Tachycardia, unspecified; R42 Dizziness and giddiness
CPT/HCPCS: 78452; 93017; 93018; A9502; J2785

== ENCOUNTER 2025-09-10 12:10 | Outpatient (CLI) | payer OTHER, SELFPAY | END 2025-09-10 23:59 | disposition home or self-care (01) | LOC: RT 12:11 | PROVIDERS: PCP Family Medicine; Visit Provider Physician Assistant | DX: E78.49 Other hyperlipidemia (principal); R00.0 Tachycardia, unspecified; I10 Essential (primary) hypertension | CPT/HCPCS: 93270 ==

== ENCOUNTER 2025-10-03 18:14 | Outpatient (CLI) | payer OTHER, SELFPAY ==
[2025-10-03 19:05] LABS: Anion Gap 14.5 mEq/L (5-15); Blood Urea Nitrogen 22 mg/dl (9-20); Calcium 9.6 mg/dl (8.4-10.2); Carbon Dioxide 26 mmol/L (22.0-30.0); Chloride 102 mmol/L (98-107); Creatinine,Serum 1.00 mg/dl (0.66-1.25); Estimated Glomerular Filt Rate 80 ml/min (>60); GFR (African American) 97 ML/MIN (>60); Glucose 110 mg/dl (74-100); Magnesium 2.1 mg/dl (1.6-2.3); Potassium 4.5 mmoL/L (3.5-5.1); Sodium 138 mmol/L (136-145)
== END 2025-10-03 23:59 | disposition home or self-care (01) ==
LOC: LAB.DROPOF 18:14
PROVIDERS: PCP Family Medicine; Visit Provider Physician Assistant
DX: E78.49 Other hyperlipidemia (principal); I10 Essential (primary) hypertension; R00.0 Tachycardia, unspecified; R42 Dizziness and giddiness
CPT/HCPCS: 80048; 83735